=== PATIENT | male | born 1950 | race Caucasian/White ===

== ENCOUNTER → 2017-10-06 | Outpatient (CLI) | payer MEDICARE, MEDICAID | LOC: M RAD 08:15 | DX: I71.4 Abdominal aortic aneurysm, without rupture (principal) | CPT/HCPCS: 76775 ==

== ENCOUNTER → 2018-09-11 | Outpatient (REF) | payer MEDICARE, MEDICAID ==
[~2018-09-11] MED LIST: ASPI1TAB PO; AUGM500T34 PO; FISH1200 PO; GARLPOW; MULTCAP PO; RANI15TA PO
[2018-09-11 11:09] LABS: BLOOD UREA NITROGEN 22 MG/DL (7-18); CALCIUM LEVEL 8.6 MG/DL (8.8-10.2); CARBON DIOXIDE LEVEL 32 MEQ/L (21-32); CHLORIDE LEVEL 99 MEQ/L (98-107); CREATININE FOR GFR 1.05 MG/DL (0.70-1.30); GLOMERULAR FILTRATION RATE > 60.0 (>42); GLUCOSE, FASTING 134 MG/DL (70-100); POTASSIUM SERUM 3.9 MEQ/L (3.5-5.1); SODIUM LEVEL 138 MEQ/L (136-145)
== END ==
LOC: M LABDRAW1 10:26
PROVIDERS: ATTEND Nurse Practitioner Adult Health
DX: Z79.899 Other long term (current) drug therapy (principal); R60.9 Edema, unspecified

== ENCOUNTER → 2018-12-28 | Outpatient (REF) | payer MEDICARE, MEDICAID ==
[~2018-12-28] MED LIST changes: -ASPI1TAB PO; +ASPI81TA26 PO
[2018-12-28 12:46] LABS: BASO # 0.1 10^3/uL (0.0-0.2); BASO % 0.4 % (0.0-1.0); EOS # 0.2 10^3/uL (0.0-0.50); EOS % 0.9 % (0.0-3.0); HEMATOCRIT 46.6 % (42.0-52.0); HEMOGLOBIN 15.3 g/dl (13.5-17.5); LYMPH # 1.5 10^3/uL (1.5-4.5); LYMPH % 9.6 % (24.0-44.0); MEAN CORPUSCULAR HEMOGLOBIN 30.8 pg (27.0-33.0); MEAN CORPUSCULAR HGB CONC 32.8 g/dl (32.0-36.5); MONO # 0.7 10^3/uL (0.0-0.8); MONO % 4.6 % (0.0-5.0); NEUTROPHILS # 13.4 10^3/uL (1.8-7.7); NEUTROPHILS % 83.8 % (36.0-66.0); PLATELET COUNT, AUTOMATED 269 10^3/uL (150-450); RED BLOOD COUNT 4.96 10^6/uL (4.30-6.10)
[2018-12-28 13:01] LABS: ALBUMIN 3.8 GM/DL (3.2-5.2); ALT/SGPT 41 U/L (12-78); BILIRUBIN,TOTAL 1.2 MG/DL (0.2-1.0); BLOOD UREA NITROGEN 15 MG/DL (7-18); CALCIUM LEVEL 8.7 MG/DL (8.8-10.2); CARBON DIOXIDE LEVEL 26 MEQ/L (21-32); CHLORIDE LEVEL 103 MEQ/L (98-107); CHOLESTEROL LEVEL 163 MG/DL (<200); CHOLESTEROL RISK RATIO 2.432 (<5); CREATININE FOR GFR 1.26 MG/DL (0.70-1.30); GLOMERULAR FILTRATION RATE > 60.0 (>42); GLUCOSE, FASTING 152 MG/DL (70-100); HDL CHOLESTEROL 67 MG/DL (>40); LDL CHOLESTEROL 73 MG/DL (<100); NON-HDL-C 96 MG/DL; POTASSIUM SERUM 4.2 MEQ/L (3.5-5.1); SODIUM LEVEL 139 MEQ/L (136-145); TOTAL PROTEIN 7.6 GM/DL (6.4-8.2); TRIGLYCERIDES LEVEL 117 MG/DL (<150)
[2018-12-28 13:22] LABS: HEMOGLOBIN A1c 6.5 %
[2018-12-28 14:01] LABS: TOTAL 25(OH) VITAMIN D 29.4 NG/ML (30.0-100.0)
== END ==
LOC: M LABDRAW1 11:59
PROVIDERS: ATTEND Nurse Practitioner Adult Health
DX: Z95.5 Presence of coronary angioplasty implant and graft (principal); I25.10 Atherosclerotic heart disease of native coronary artery without angina pectoris; R60.9 Edema, unspecified; E78.00 Pure hypercholesterolemia, unspecified; Z79.899 Other long term (current) drug therapy; E11.65 Type 2 diabetes mellitus with hyperglycemia

== ENCOUNTER → 2019-04-08 | Outpatient (REF) | payer MEDICARE, MEDICAID ==
[2019-04-08 13:13] LABS: BASO # 0.1 10^3/uL (0.0-0.2); BASO % 0.4 % (0.0-1.0); EOS # 0.3 10^3/uL (0.0-0.5); EOS % 1.7 % (0.0-3.0); HEMATOCRIT 47.8 % (42.0-52.0); HEMOGLOBIN 15.5 g/dl (13.5-17.5); LYMPH # 1.4 10^3/uL (1.5-5.0); LYMPH % 9.4 % (24.0-44.0); MEAN CORPUSCULAR HEMOGLOBIN 30.9 pg (27.0-33.0); MEAN CORPUSCULAR HGB CONC 32.4 g/dl (32.0-36.5); MEAN CORPUSCULAR VOLUME 95.2 fl (80.0-96.0); MONO # 0.8 10^3/uL (0.0-0.8); MONO % 5.3 % (0.0-5.0); NEUTROPHILS # 12.1 10^3/uL (1.5-8.5); NEUTROPHILS % 82.7 % (36.0-66.0); PLATELET COUNT, AUTOMATED 265 10^3/uL (150-450); RED BLOOD COUNT 5.02 10^6/uL (4.30-6.10); WHITE BLOOD COUNT 14.6 10^3/uL (4.0-10.0)
[2019-04-08 13:25] LABS: ALBUMIN 3.7 GM/DL (3.2-5.2); ALT/SGPT 40 U/L (12-78); BILIRUBIN,TOTAL 1.3 MG/DL (0.2-1.0); BLOOD UREA NITROGEN 18 MG/DL (7-18); CALCIUM LEVEL 8.8 MG/DL (8.8-10.2); CARBON DIOXIDE LEVEL 29 MEQ/L (21-32); CHLORIDE LEVEL 100 MEQ/L (98-107); CHOLESTEROL LEVEL 141 MG/DL (<200); CHOLESTEROL RISK RATIO 1.905 (<5); CREATININE FOR GFR 1.25 MG/DL (0.70-1.30); GLOMERULAR FILTRATION RATE > 60.0 (>42); GLUCOSE, FASTING 178 MG/DL (70-100); HDL CHOLESTEROL 74 MG/DL (>40); LDL CHOLESTEROL 46 MG/DL (<100); NON-HDL-C 67 MG/DL; POTASSIUM SERUM 4.3 MEQ/L (3.5-5.1); SODIUM LEVEL 139 MEQ/L (136-145); TOTAL PROTEIN 6.7 GM/DL (6.4-8.2); TRIGLYCERIDES LEVEL 103 MG/DL (<150)
[2019-04-08 14:28] LABS: TOTAL 25(OH) VITAMIN D 29.2 NG/ML (30.0-100.0)
[2019-04-08 15:11] LABS: HEMOGLOBIN A1c 6.6 %
== END ==
LOC: M LABDRAW1 11:46
PROVIDERS: ATTEND Nurse Practitioner Adult Health
DX: E11.65 Type 2 diabetes mellitus with hyperglycemia (principal); Z79.899 Other long term (current) drug therapy; J44.9 Chronic obstructive pulmonary disease, unspecified

== ENCOUNTER → 2019-05-09 | Outpatient (REF) | payer MEDICARE, MEDICAID ==
[2019-05-09 12:54] LABS: ALBUMIN 3.8 GM/DL (3.2-5.2); CALCIUM LEVEL 9.7 MG/DL (8.8-10.2); CREATININE FOR GFR 1.56 MG/DL (0.70-1.30); GLOMERULAR FILTRATION RATE 46.9 (>42); PHOSPHORUS LEVEL 3.4 MG/DL (2.5-4.9); POTASSIUM SERUM 4.5 MEQ/L (3.5-5.1)
== END ==
LOC: M LABDRAW1 12:10
PROVIDERS: ATTEND Physician Assistant
DX: R06.02 Shortness of breath (principal)

== ENCOUNTER → 2019-05-27 | Outpatient (REF) | payer MEDICARE, MEDICAID ==
[2019-05-27 12:40] LABS: CALCIUM LEVEL 9.1 MG/DL (8.8-10.2); CREATININE FOR GFR 1.31 MG/DL (0.70-1.30); GLOMERULAR FILTRATION RATE 57.4 (>42); POTASSIUM SERUM 3.9 MEQ/L (3.5-5.1)
== END ==
LOC: M LABDRAW1 11:58
PROVIDERS: ATTEND Physician Assistant
DX: I25.10 Atherosclerotic heart disease of native coronary artery without angina pectoris (principal)

== ENCOUNTER 2019-10-02 01:31 | Inpatient (IN) | payer MEDICARE, MEDICAID ==
[~2019-10-02] VITALS: Ht 170.2 cm; Wt 115.8 kg
[2019-10-02] MEDS ORDERED: JANU50TA8 (01:46)
[2019-10-02] MEDS ORDERED: CLOP75TA2 (01:46)
[2019-10-02] MEDS ORDERED: ATOR40TA75 (01:46)
[2019-10-02] MEDS ORDERED: FLUTISP (01:46)
[2019-10-02] MEDS ORDERED: LISI-542 (01:46)
[2019-10-02] MEDS ORDERED: PROAAER10 (01:46)
[2019-10-02] MEDS ORDERED: MONT10TA4 (01:46)
[2019-10-02] MEDS ORDERED: PRED20TA (01:46)
[2019-10-02] MEDS ORDERED: RANI150T14 (01:46)
[2019-10-02] MEDS ORDERED: INCR1INH (01:46)
[2019-10-02] MEDS ORDERED: BENZ-18 (01:46)
[2019-10-02] MEDS ORDERED: FURO40TA2 (01:46)
[2019-10-02] MEDS ORDERED: SULF400T14 (01:46)
[2019-10-02 02:16] LABS: BASO # 0.1 10^3/uL (0.0-0.2); BASO % 0.5 % (0.0-1.0); EOS # 0.3 10^3/uL (0.0-0.5); EOS % 1.6 % (0.0-3.0); HEMATOCRIT 46.8 % (42.0-52.0); HEMOGLOBIN 15.2 g/dl (13.5-17.5); LYMPH % 22.6 % (24.0-44.0); MEAN CORPUSCULAR HGB CONC 32.5 g/dl (32.0-36.5); MEAN CORPUSCULAR VOLUME 89.1 fl (80.0-96.0); MONO # 1.7 10^3/uL (0.0-0.8); MONO % 9.7 % (0.0-5.0); NEUTROPHILS # 11.6 10^3/uL (1.5-8.5); NEUTROPHILS % 65.1 % (36.0-66.0); PLATELET COUNT, AUTOMATED 236 10^3/uL (150-450); RED BLOOD COUNT 5.25 10^6/uL (4.30-6.10); WHITE BLOOD COUNT 17.8 10^3/uL (4.0-10.0)
[2019-10-02 02:36] LABS: CALCIUM LEVEL 9.1 MG/DL (8.8-10.2); CREATININE FOR GFR 1.89 MG/DL (0.70-1.30); GLOMERULAR FILTRATION RATE 37.6 (>42); POTASSIUM SERUM 3.9 MEQ/L (3.5-5.1)
[2019-10-02] MEDS ORDERED: FUROSEMIDE 100 MG/10 ML VIAL (J1940) IV ONE (03:00)
[2019-10-02] MEDS ORDERED: dexameTHASONE 20 MG/5 ML VIAL (J1100) IV ONE (03:00)
[2019-10-02] MEDS: IPRATROPIUM 0.5MG/ALBUTEROL 2.5MG INH SOL UD 3ML (DUONEB)(J7620) NEB SCH ×6 (03:00→20:04)
[2019-10-02 04:35] LABS: VENOUS HCO3 22.8 MEQ/L (23.0-27.0); VENOUS O2 SATURATION 94.8 % (60.0-80.0); VENOUS PARTIAL PRESSURE CO2 35.6 mmHg (38.0-50.0); VENOUS PARTIAL PRESSURE O2 76.4 mmHg (30.0-50.0); VENOUS PH 7.425 UNITS (7.330-7.430); VENOUS STANDARD HCO3 23.6 MEQ/L; VENOUS TOTAL CO2 23.9 MEQ/L (24.0-28.0)
[2019-10-02 05:11] LABS: INFLUENZA A AMPLIFICATION NEGATIVE (NEGATIVE); INFLUENZA B AMPLIFICATION NEGATIVE (NEGATIVE)
[2019-10-02] MEDS ORDERED: ALBUTEROL SULFATE 2.5 MG/0.5 ML INH NEB SOLN NEB PRN (05:45)
[2019-10-02] MEDS ORDERED: ACETAMINOPHEN TAB 650MG DOSE (2X325MG) PO PRN (05:45)
[2019-10-02 06:44] VITALS: BP 105/76
[2019-10-02] MEDS ORDERED: PROAAER10 INH (06:45)
[2019-10-02] MEDS ORDERED: LISI-542 PO (06:45)
[2019-10-02] MEDS ORDERED: FURO40TA2 PO (06:45)
[2019-10-02] MEDS ORDERED: CLOP75TA2 PO (06:45)
[2019-10-02] MEDS ORDERED: MONT10TA4 PO (06:45)
[2019-10-02] MEDS ORDERED: VITAD1000T PO (06:45)
[2019-10-02] MEDS ORDERED: FLON1SPR (06:45)
[2019-10-02] MEDS ORDERED: ATOR40TA75 PO (06:45)
[2019-10-02] MEDS ORDERED: BENZ-18 PO (06:45)
[2019-10-02] MEDS ORDERED: RANI-397 PO (06:45)
[2019-10-02] MEDS ORDERED: INCR1INH INH (06:45)
[2019-10-02] MEDS ORDERED: BACT800T5 PO (06:45)
[2019-10-02] MEDS ORDERED: JANU50TA8 PO (06:45)
[2019-10-02] MEDS ORDERED: PRED20TA PO (06:45)
--- NOTE | 2019-10-02 06:48 | HPEPDOC ---
[facility] Medical History & Physical Date of Admission Oct 02, 2019 Date of Service: Oct 02, 2019 Attending Physician: MONICA GORDON MD History and Physical CHIEF COMPLAINT: Shortness of breath HISTORY OF PRESENT ILLNESS: Patient is a 69-year-old male who presents with a long-standing history of shortness of breath. Patient says that over the past 4 months he has noticed worsening of shortness of breath. Patient states that he is really go out and do most of things to do as long as he took it easy however, he now is unable to walk more than 10-15 feet without becoming acutely short of breath and having to stop and rest for some time. Patient states that his long history of difficulty breathing sees Dr. Person for his pulmonology care. Patient states that he thinks he has a lung disease today with birds. 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 Patient says used to have carrier pigeons but gave this up about 8 months ago. Patient also is complaining of acute fluid retention in his legs causing leg swelling which is the reason why he came into the emergency room today. Patient does not have any other complaints at this time. REVIEW OF SYSTEMS: General: Patient denies fevers, chills, night sweats, unintentional weight loss HEENT: Patient denies headaches, changes in vision, sore throat. Cardiovascular: Patient denies chest pain, chest pressure, or palpitations Respiratory: Patient endorses worsening shortness of breath as described above in HPI GI: Patient denies abdominal pain, nausea, vomiting, diarrhea : Patient denies pain or difficulty with urination Neurological: Patient denies numbness or tingling in extremities Extremities: Patient endorses worsening swelling in his lower extremities as described above in HPI Skin: Patient denies any rashes or lesions. Hematologic: Patient denies any easy bruising. Lymphatic: Patient denies any lumps in his neck, axilla, or groin. PAST MEDICAL HISTORY: 1. Coronary artery disease. 2. Possible COPD 3. 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 PAST SURGICAL HISTORY: 1. Multiple procedures to place coronary stents with the last one being about 4- 5 months ago.. SOCIAL HISTORY: Patient says used to smoke cigarettes on a daily basis but quit 15 years ago. Patient does not drink any alcohol last year and denies illicit drug use. Patient lives by himself and used to have carrier pigeons but gave this up about 8 months ago. FAMILY HISTORY: Patient says his brother has COPD and his mother had heart issues. ALLERGIES: Please see below. HOME MEDICATIONS: Please see below. PHYSICAL EXAMINATION: VITAL SIGNS: Temperature 98.2, pulse 105, respiratory rate 17, blood pressure 144/87, pulse oximetry 89% 3 L via nasal cannula General: Alert and oriented male patient who was laying on the stretcher when I walked in. Patient was able to speak in about 3-4 sentences before having to take a breath. Patient was using accessory muscles and was exhibiting pursed lip breathing. Patient appeared to be in [id number] distress especially after coughing. HEENT: Normocephalic, atraumatic, moist mucous membranes, posterior pharynx was nonerythematous, tympanic membranes are pearly-rose without erythema. Neck: No lymphadenopathy, thyromegaly, or carotid bruits. Cardiac: Regular rate and rhythm, no murmurs, normal S1, normal S2 Pulm: Coarse crackles throughout the lung martinez especially at the bases. Abd: Nondistended, nontender to palpation, normal bowel sounds Ext: 3+ pitting edema bilateral lower extremities. Neuro: No gross neurological defects. Patient was able to follow commands set up on command. Skin: Skin of the arms, lower legs, abdomen, back, head and neck were examined did not show any evidence of rash or lesions. LABORATORY DATA: Anion Gap 13, Glomerular Filtration Rate 37.6L, Calcium Level 9.1, UZ-Bzs-R-Type Natriuretic Peptide 6239H Blood Gas Bicarbonate Standard 23.6, Venous Blood pH 7.425, Venous Blood Partial Pressure CO2 35.6L, Venous Blood Partial Pressure O2 76.4H, Venous Blood Total Carbon Dioxide 23.9L, Venous Blood HCO3 22.8L, Venous Blood Oxygen Saturation 94.8H, Venous Blood Base Excess -1.0, Influenza Type A (RT-PCR) NEGATIVE, Influenza Type B (RT-PCR) NEGATIVE POC pH (Misc Panel) 7.432, POC Base Excess (Misc Panel) -1.0, POC Saturated Percent O2 (Misc) 95, POC pO2 (Misc Panel) 71.0L, POC pCO2 (Misc Panel) 35.5, POC HCO3 (Misc Panel) 23.6, POC Total CO2 (Misc Panel) 25.0 IMAGING: Patient had a chest x-ray performed and a official radiology read is pending however, it does show coarse thickening throughout the lung martinez with no focal consolidation. When compared to a previous study performed in 2015, it appears unchanged MICROBIOLOGY: 10/02/19 Blood Culture, Received Pending ASSESSMENT: Patient is a 69-year-old male who presents to the emergency department with worsening shortness of breath was a history of chronic lung disease. PLAN: 1. Acute on chronic hypoxic respiratory failure. Patient is currently on 3 L of nasal cannula oxygen. Patient is on this at home for possible COPD. Patient follows up with Dr. Person for his pulmonology care. Patient sounds like he may have bird fancier's lung according to what he is saying. Record showed be obtained from Dr. Person's office in order to verify this. Patient will be placed on Solu-Medrol 60 mg IV every 8 hours and will have nebulizers written for the patient. 2. Acute on chronic congestive heart failure. Patient has recently had a st enting procedure. Patient says he's had 4 stents placed in his lifetime. Patient gets his care through [facility]. Patient recently had an echocardiogram done there as well so this will not be repeated. We will try to obtain his records from there. Patient will be given IV Lasix and will be placed on a fluid restriction with strict I's and O's. 3. Acute kidney injury. Patient's creatinine is elevated above baseline. Renal ultrasound, urinalysis, and urine creatinine and urea have been ordered to complete the workup. 4. Coronary artery disease. Patient will be continued on his home medications. 5. Obesity with BMI of 40 complicates care 6. DVT prophylaxis. Lovenox. 7. CODE STATUS: DO NOT RESUSCITATE/DO NOT INTUBATE. MOLST form was filled out and signed in the emergency department. Home Medications Scheduled Aspirin (Aspirin EC) 81 Mg Tab, 81 MG PO DAILY Atorvastatin Calcium (Atorvastatin Calcium) 40 Mg Tablet, 40 MG PO QPM 1800 Cholecalciferol (Vitamin D3) (Vitamin D3) 1,000 Unit Tablet, 1,000 UNITS PO DAILY Clopidogrel Bisulfate (Clopidogrel) 75 Mg Tablet, 75 MG PO QPM 1800 Fluticasone Propionate (Flonase Allergy Relief) 9.9 Ml Valier.susp, 2 SPRAYS NA DAILY Furosemide (Furosemide) 40 Mg Tablet, 40 MG PO BID Lisinopril (Lisinopril) 5 Mg Tablet, 5 MG PO DAILY Montelukast Sodium (Montelukast Sodium) 10 Mg Tablet, 10 MG PO DAILY Prednisone (Prednisone) 20 Mg Tablet, 20 MG PO DAILY Ranitidine HCl (Ranitidine HCl) 150 Mg Tablet, 1 TAB PO BID Sitagliptin Phos/Metformin HCl (Janumet 50-1,000 mg Tablet) 1 Each Tablet, 1 TAB PO BID Sulfamethoxazole/Trimethoprim (Bactrim Ds Tablet) 1 Each Tablet, 1 TAB PO 3XW MONDAY, MONDAY AND MONDAY Umeclidinium [place] (Incruse Ellipta) 62.5 Mcg Blst.w.dev, 1 PUFF INH DAILY Scheduled PRN Albuterol Sulfate (Proair Hfa) 8.5 Gm Hfa.aer.ad, 2 PUFF INH Q4H PRN for SHORTNESS OF BREATH Benzonatate (Benzonatate) 100 Mg Capsule, 100 MG PO TID PRN for COUGH Allergies Coded Allergies: benazepril (Verified Allergy, Unknown, 10/02/19) shellfish derived (Verified Allergy, Unknown, 10/02/19) A-FIB/CHADSVASC A-FIB History Current/History of A-Fib/PAF?: No GME ATTESTATION GME ATTESTATION My faculty preceptor for this patient encounter was physically present during the encounter and was fully available. All aspects of the patient interview, examination, medical decision making process, and medical care plan development were reviewed and approved by the faculty preceptor. The faculty preceptor is aware and concurs with the plan as stated in the body of this note and will attest to such by his/her cosignature. ATTENDING NOTE Time of service 6:15 AM I reviewed and edited the note and agree with the findings as documented by JEANNINE Garcia DO Oct 02, 2019 06:48 MONICA GORDON MD Oct 02, 2019 07:27
[2019-10-02] MEDS ORDERED: GLUCAGON FOR INJ 1 MG VIAL (J1610) SC PRN (07:00)
[2019-10-02] MEDS ORDERED: DEXTROSE 50% 50 ML SYRINGE IV PRN (07:00)
[2019-10-02] MEDS ORDERED: GLUCOSE 4 GM CHEW TABLET PO PRN (07:00)
--- NOTE | 2019-10-02 07:27 | REPVR ---
PROCEDURE INFORMATION: Exam: US Retroperitoneal Limited, Kidneys Exam date and time: 10/02/2019 6:37 AM Age: 69 years old Clinical indication: Abnormal findings; Abnormal lab test; Abnormal kidney function lab tests; Additional info: Elías TECHNIQUE: Imaging protocol: Real-time ultrasound of the retroperitoneum with image documentation. Examination was focused on the kidneys. COMPARISON: GALLBLADDER US 04/09/2015 5:14 PM FINDINGS: Right kidney: Right renal cortical atrophy. No hydronephrosis. Left kidney: Simple 1.5 x 1.8 cm left parapelvic renal cyst. Mild left renal cortical atrophy. No hydronephrosis. Wall Bladder: Under distended urinary bladder. IMPRESSION: Bilateral renal cortical atrophy. No hydronephrosis. COMMENTS: Consistent with the [employer]'s Incidental Findings Committee white paper (J Am Candelario Radiol 2018): Any incidental cystic renal lesion classified in this report as too small to characterize or simple appearing is likely a benign cyst. No follow-up imaging is recommended for these lesions per consensus recommendations based on imaging criteria. Electronically signed by: Javon Correa On 10/02/2019 07:27:43 AM
[2019-10-02] MEDS ORDERED: FAMOTIDINE 20 MG TAB PO SCH (09:00)
--- NOTE | 2019-10-02 09:26 | REP ---
Portable chest x-ray: Single view. History: Dyspnea and cough. Comparison chest x-ray: June 24, 2015. Findings: There is fairly advanced diffuse interstitial fibrosis pattern consistent with COPD. Some coarse fibrosis is seen in the right upper lobe region. These findings are unchanged. No superimposed infiltrate is appreciated. The heart is mildly enlarged unchanged. Impression: Chronic and fairly advanced interstitial pulmonary fibrosis. Cardiomegaly. Electronically Signed by Naeem Benson MD 10/02/2019 09:18 A
[2019-10-02 09:54] LABS: APPEARANCE, URINE CLEAR (CLEAR); BACTERIA, URINE AUTO NEGATIVE (NEGATIVE); BILIRUBIN, URINE AUTO NEGATIVE (NEGATIVE); BLOOD, URINE BLOOD NEGATIVE (NEGATIVE); COLOR, URINE STRAW (YELLOW); GLUCOSE, URINE (UA) AUTO NEGATIVE (NEGATIVE); KETONE, URINE AUTO NEGATIVE (NEGATIVE); LEUKOCYTE ESTERASE, URINE AUTO NEGATIVE (NEGATIVE); MUCUS, URINE SMALL (NEGATIVE); NITRITE, URINE AUTO NEGATIVE (NEGATIVE); PROTEIN, URINE AUTO NEGATIVE (NEGATIVE); RBC, URINE AUTO 0 /HPF (0-3); SPECIFIC GRAVITY URINE AUTO 1.008 (1.002-1.035); SQUAMOUS EPITHELIAL CELL UR AU 0 /HPF (0-6); UROBILINOGEN, URINE AUTO 0.2 mg/dL (0.0-2.0); WBC, URINE AUTO 0 /HPF (0-3)
[2019-10-02] MEDS: methylPREDNISolone INJ 125 MG/2 ML VIAL (J2930) IV SCH ×2 (10:05→17:44)
[2019-10-02] MEDS: FLUTICASONE PROP 0.05% NASAL SPRAY 16 GM (FLONASE) SCH (10:05)
[2019-10-02] MEDS: BACTRIM 160MG/800MG DS TAB PO SCH (10:06)
[2019-10-02] MEDS: ENOXAPARIN 30 MG/0.3 ML SYR (J1650) SC SCH (10:06)
[2019-10-02] MEDS: PANTOPRAZOLE 40MG TAB (PROTONIX) PO SCH (10:06)
[2019-10-02] MEDS: BENZONATATE 100 MG CAP PO PRN ×2 (10:06→17:46)
[2019-10-02] MEDS: ASPIRIN 81 MG ENTERIC TAB PO SCH (10:06)
[2019-10-02] MEDS: FAMOTIDINE 20 MG TAB PO SCH (10:06)
[2019-10-02] MEDS: MONTELUKAST 10 MG TAB PO SCH (10:06)
[2019-10-02] MEDS: VITAMIN D 1,000 INTERNATIONAL UNITS TABLET PO SCH (10:06)
[2019-10-02] MEDS: lisinopriL 5 MG TAB PO SCH (10:07)
[2019-10-02 10:20] LABS: CREATININE,RANDOM URINE 35.6 MG/DL; UREA NITROGEN RANDOM URINE 398 MG/DL
[2019-10-02] MEDS: FUROSEMIDE 100 MG/10 ML VIAL (J1940) IV SCH ×2 (12:58→20:00)
[2019-10-02] MEDS: HumaLOG INSULIN (NovoLOG) PER UNIT SC SCH ×3 (12:59→21:00)
[2019-10-02 14:00] VITALS: BP 100/68
[2019-10-02] MEDS ORDERED: FUROSEMIDE 20 MG/2 ML VIAL (J1940) IV ONE (21:15)
[2019-10-02] MEDS: ATORVASTATIN 20 MG TAB PO SCH (21:34)
[2019-10-02] MEDS: CLOPIDOGREL 75 MG TAB PO SCH (21:35)
[2019-10-02 22:00] VITALS: BP 102/66
[2019-10-02] MEDS: RAMELTEON 8 MG TAB (ROZEREM) PO SCH (22:16)
[2019-10-03] VITALS (7 sets, daily range): BP systolic 104–128; BP diastolic 63–86; O2SAT 90
[2019-10-03] MEDS: methylPREDNISolone INJ 125 MG/2 ML VIAL (J2930) IV SCH ×3 (01:34→18:28)
[2019-10-03] MEDS: IPRATROPIUM 0.5MG/ALBUTEROL 2.5MG INH SOL UD 3ML (DUONEB)(J7620) NEB SCH ×4 (03:11→21:59)
[2019-10-03] MEDS: FUROSEMIDE 100 MG/10 ML VIAL (J1940) IV SCH ×3 (04:00→22:14)
[2019-10-03] MEDS ORDERED: FUROSEMIDE 40 MG/4 ML VIAL (J1940) IV ONE ×2 (04:45→10:00)
[2019-10-03] MEDS: BENZONATATE 100 MG CAP PO PRN (05:06)
[2019-10-03 06:14] LABS: HEMATOCRIT 41.7 % (42.0-52.0); HEMOGLOBIN 13.7 g/dl (13.5-17.5); MEAN CORPUSCULAR HEMOGLOBIN 28.7 pg (27.0-33.0); MEAN CORPUSCULAR HGB CONC 32.9 g/dl (32.0-36.5); MEAN CORPUSCULAR VOLUME 87.4 fl (80.0-96.0); PLATELET COUNT, AUTOMATED 217 10^3/uL (150-450); RED BLOOD COUNT 4.77 10^6/uL (4.30-6.10); WHITE BLOOD COUNT 14.3 10^3/uL (4.0-10.0)
--- NOTE | 2019-10-03 06:50 | ECGEPIP ---
[facility] - ED Test Date: 2019-10-02 Pat Name: IVAN BARTLETT Department: Room: [place] [address] Gender: Male Hospital Supervisor: ELVIRA : [id number] Requested By: ALDEN GLEZ Order Number: [id number] Reading MD: Keyana Guillen Measurements Intervals [place] Rate: 96 P: 41 IN: 168 QRS: 131 QRSD: 121 T: -35 QT: 316 QTc: 400 Interpretive Statements SINUS RHYTHM INDETERMINATE AXIS RIGHT BUNDLE BRANCH BLOCK INCREASED RATE 04/09/15 Electronically Signed on 10-03-2019 6:49:54 EST by Keyana Guillen
[2019-10-03 06:51] LABS: CALCIUM LEVEL 8.5 MG/DL (8.8-10.2); CREATININE FOR GFR 1.75 MG/DL (0.70-1.30); GLOMERULAR FILTRATION RATE 41.1 (>42); MAGNESIUM LEVEL 2.3 MG/DL (1.8-2.4); POTASSIUM SERUM 3.7 MEQ/L (3.5-5.1)
[2019-10-03] MEDS: lisinopriL 5 MG TAB PO SCH (08:05)
[2019-10-03] MEDS: HumaLOG INSULIN (NovoLOG) PER UNIT SC SCH ×4 (09:09→22:15)
[2019-10-03] MEDS: MONTELUKAST 10 MG TAB PO SCH (09:09)
[2019-10-03] MEDS: PANTOPRAZOLE 40MG TAB (PROTONIX) PO SCH (09:09)
[2019-10-03] MEDS: VITAMIN D 1,000 INTERNATIONAL UNITS TABLET PO SCH (09:09)
[2019-10-03] MEDS: ASPIRIN 81 MG ENTERIC TAB PO SCH (09:09)
[2019-10-03] MEDS: FAMOTIDINE 20 MG TAB PO SCH (09:09)
[2019-10-03] MEDS: ENOXAPARIN 30 MG/0.3 ML SYR (J1650) SC SCH (09:10)
[2019-10-03] MEDS: FLUTICASONE PROP 0.05% NASAL SPRAY 16 GM (FLONASE) SCH (09:10)
--- NOTE | 2019-10-03 10:12 | REP ---
CT chest without contrast: History: Shortness of breath. No comparison chest CT. Comparison is made with yesterday's chest x-ray. Findings: There are advanced emphysematous changes with areas of honeycombing extensively in the upper lobes bilaterally and to a lesser extent in the lower lobes bilaterally. There are fairly large bullae in the right apex. No superimposed infiltrate is appreciated. There is no evidence of pleural or pericardial effusion. Coronary artery vascular calcification is noted. Mild cardiomegaly is observed. No adrenal lesion is seen. The visualized upper abdominal structures are remarkable only for some granulomatous calcifications in the spleen and a tiny accessory splenule. No bony abnormality is appreciated. Impression: Advanced COPD with extensive areas of fibrosis and honeycombing. Cardiomegaly. Vascular calcification. No acute infiltrate seen. Electronically Signed by Naeem Benson MD 10/03/2019 08:01 P
[2019-10-03] MEDS: cefTRIAXone SOD 2 GM in D5W MINI-BAG PLUS 50 ML IV SCH (10:22)
[2019-10-03] MEDS: AZITHROMYCIN INJ 500 MG, VIAL MATE ADAPTER 1 EACH in D5W 250 ML IV SCH (11:03)
[2019-10-03 11:21] LABS: ABG BASE EXCESS -2.4 (-2.0-2.0); ABG HCO3 20.7 MEQ/L (22.0-26.0); ABG O2 SATURATION 95.2 % (95.0-99.0); ABG PARTIAL PRESSURE O2 77.3 mmHg (75.0-100.0); ABG STANDARD HCO3 22.4 MEQ/L (22.0-26.0); ABG TOTAL CO2 21.6 MEQ/L (23.0-31.0); ABG pH (ARTERIAL) 7.442 UNITS (7.350-7.450)
[2019-10-03] MEDS: INCRUSE ELLIPTA 62.5 MCG INH SCH (11:42)
--- NOTE | 2019-10-03 21:09 | CR ---
DATE OF CONSULTATION: 10/03/2019 REQUESTING PHYSICIAN: Gabi Renee MD CONSULTING PHYSICIAN: Chon Sy MD REASON FOR CONSULTATION: Management of volume status in this patient with chronic kidney disease and hypoxic respiratory failure. CHIEF COMPLAINT: The patient presented to the emergency room yesterday with progressive shortness of breath. HISTORY OF PRESENT ILLNESS: 69-year-old male with past medical history of chronic kidney disease stage III, best baseline creatinine of 1.2 as per March 2019, severe pulmonary fibrosis dependent on home oxygen, history of cor pulmonale. He presented to the emergency room yesterday with progressive shortness of breath. The patient reported that he gets short of breath on minimal exertion, walking a few steps makes him short of breath. His regular oxygen requirement is around 3 liters per minute but they had to increase the oxygen to 5-6 liters per minute and even with that he was desaturating in the 80s. The patient also complained of leg swelling in bilateral lower extremities. He was admitted under the hospitalist service last night. He was started on steroids, nebulizations, and IV diuretics. That did not make much difference in his shortness of breath. His creatinine on arrival was 1.8 which is higher than his baseline. Nephrology service was called for further help in the management of this patient for adjustment of his volume status and diuretics and the setting of chronic kidney disease stage III. I saw and evaluated the patient today afternoon at the bedside. His son was also present at the bedside. The patient was wearing the nasal cannula and he was in moderate respiratory distress. 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 PAST SURGICAL HISTORY: Status post coronary artery stents. ALLERGIES: The patient is allergic to BENAZEPRIL and shellfish. FAMILY HISTORY: No significant family history of end-stage renal disease requiring hemodialysis. He does report COPD in his brother. SOCIAL HISTORY: The patient lives at home. He is an ex-smoker. He quit 15 years ago. He denies any drug abuse or alcohol abuse. He used to have pigeons at home but he gave them up about 8 months ago. REVIEW OF SYSTEMS: Constitutional: Patient denies any fevers and chills. Eyes: He denies any blurry vision or double vision. ENT: Denies any dysphagia or odynophagia. Cardiovascular: He reports congestive heart failure and lower extremity edema. Respiratory: He reports progressive shortness of breath and cough and oxygen dependent. GI: Denies any nausea or vomiting. Genitourinary: He denies any dysuria or hematuria. Musculoskeletal: He reports lower extremity edema. Skin: He denies any rashes or ulcers. Psychiatric: He denies any depression or anxiety. Hematology/Oncology: He denies any easy bleeding or bruising. SENIOR INTEGRATION DEVELOPER: He denies any strokes or seizures. Endocrine: He denies any hyperthyroidism or hypothyroidism. All other review of systems is negative. PHYSICAL EXAMINATION: General: The patient is awake, alert, oriented times three, obese, sitting up in the bed wearing nasal cannula. Mild respiratory distress. Vital signs: Temperature is 97.2 degrees Fahrenheit, blood pressure 123/86, pulse 89, respiratory rate of 23, saturating 94% on high-flow nasal cannula at 4 liters. Head and neck exam: Extraocular muscles intact. Pupils equally round and reactive to light. Mucous membranes are moist. Neck is supple. There is no significant elevation of the JVD. Cardiovascular: S1, S2, regular rate, 1+ edema of the bilateral ankles. Respiratory: Decreased breath sounds at the bases with mild expiratory rhonchi. Abdomen: Soft, obese, positive bowel sounds. Nontender. No organomegaly. Musculoskeletal: He has cyanosis of the extremity with clubbing of the fingers. SENIOR INTEGRATION DEVELOPER: No focal deficit, power is 5/5 in all extremities. Skin: No rashes or ulcers. LABORATORY REVIEW: CBC showed WBC 14.3, hemoglobin is 13.7, platelets are 217. BMP showed sodium 132, potassium 3.7, chloride 99, bicarbonate 26, BUN 43, creatinine is 1.7, magnesium 2.3. BNP on arrival was 6239 yesterday. Microbiology: Respiratory viral panel is negative. Blood cultures are negative so far. IMAGING: CT of the chest was done yesterday which showed advanced COPD with extensive areas of fibrosis and honeycombing, cardiomegaly, vascular calcifications, no acute infiltrate was seen. Renal ultrasound was done which showed bilateral renal cortical atrophy, no hydronephrosis was seen. CURRENT INPATIENT MEDICATIONS: The patient's medications include: - azithromycin 500 mg IV daily - Rocephin 2 grams IV daily - Tylenol as needed - albuterol nebulizations - DuoNeb nebulizations - aspirin 81 mg daily - Lipitor 40 mg nightly - Tessalon Perles - Plavix 75 mg by mouth daily - Lovenox 30 mg subcutaneous daily - famotidine 20 mg by mouth daily - Lasix 60 mg IV every 8 hours - insulin sliding scale - lisinopril 5 mg by mouth daily - Solu-Medrol 80 mg IV every eight hours - montelukast 10 mg by mouth daily - Protonix 40 mg daily - Rozerem 8 mg nightly - Bactrim one tablet by mouth Monday, Monday, Monday - vitamin D 1000 units by mouth daily ASSESSMENT: 69-year-old man with advanced COPD on home oxygen admitted at this time with hypoxic respiratory failure secondary to COPD exacerbation. PLAN: 1. Acute on chronic hypoxic respiratory failure secondary to acute COPD exacerbation. The patient continues to be nebulizations, antibiotics and steroids. He has advanced pulmonary fibrosis and at baseline he is dependent on 3 liters of oxygen. Management is as per pulmonary recommendations. However, as per documentation, pulmonary has nothing much to offer because of the advanced fibrosis and honeycomb appearance of the lungs on CT scan. 2. Acute decompensated congestive heart failure. Looking at him clinically, it does not look like the patient has significant volume overload. He just has edema on the lower extremities. However, given his advanced COPD, most likely the patient has decompensated cor pulmonale. Echocardiogram result is not available at this time. Continue the diuretics at this time. Continue to monitor intake and output. 3. Acute kidney injury superimposed on chronic kidney disease stage III. Patient's baseline creatinine is 1.2. However, because of CHF and COPD exacerbation, he is being aggressively diuresed. Continue the diuretics at this time. Renal ultrasound shows cortical scarring. 4. Hyponatremia. The patient has hypervolemic hyponatremia. Okay to continue the diuretics at this time. 5. Coronary artery disease. Continue current dose of aspirin 81 mg daily, Lipitor 40 mg nightly, Plavix 75 mg by mouth daily, along with lisinopril 5 mg by mouth daily. He is not a candidate for beta blockers because of advanced COPD. Thank you for involving me in the care of this patient. I shall be happy to follow the patient along with you tomorrow morning.
[2019-10-03] MEDS: RAMELTEON 8 MG TAB (ROZEREM) PO SCH (22:13)
[2019-10-03] MEDS: CLOPIDOGREL 75 MG TAB PO SCH (22:13)
[2019-10-03] MEDS: ATORVASTATIN 20 MG TAB PO SCH (22:13)
--- NOTE | 2019-10-03 22:38 | ECHO ---
DATE OF PROCEDURE: 10/03/2019 REFERRING PHYSICIAN: Gabi Renee MD INDICATION: Dyspnea, unspecified. HEIGHT: 170 cm WEIGHT: 116 kg 2D MEASUREMENTS: Left atrium: 3.9 cm Ventricular septum: 1.29 cm Posterior wall: 0.92 cm Left ventricle diastole: 4.7 cm Aortic root: 3.3 cm Aortic annulus: 2.7 cm Inferior vena cava: 2.3 cm DOPPLER MEASUREMENTS: Trace aortic regurgitation. Aortic valve velocity: 70 cm/s LVOT velocity: 111 cm/s LVOT VTI: 17.6 cm No mitral regurgitation. Mitral E velocity: 74.0 cm/s Mitral A velocity: 110 cm/s Mitral deceleration time: 183 ms Mild tricuspid regurgitation. No pulmonic regurgitation. Estimated right ventricle systolic pressure at least 85 mmHg assuming a right atrial pressure of at least 20 mmHg. MITRAL ANNULAR TISSUE DOPPLER: E prime septal: 4.0 cm/s E prime lateral: 6.9 cm/s DESCRIPTION: Rhythm was sinus. Image quality was fair. No pericardial effusion. This is a 2D, M-mode, color flow Doppler and pulse wave Doppler examination that included mitral annular tissue Doppler. CONCLUSIONS: 1. Suggestive of severe elevation of estimated right ventricle systolic pressure (at least 85 mmHg). Mild right ventricle dilatation with moderate hypokinesis of the right ventricle and moderate reduction in right ventricle systolic function. Prominent moderate band of the right ventricle. At least mild right atrial dilatation. Inferior vena cava plethora with marked reduction of respiratory variation suggestive of elevated central venous pressure of at least 20 mmHg. 2. Mild hypertrophy of the intraventricular septum. Normal left ventricle regional wall motion, wall thickening, and systolic function. Left ventricular ejection fraction (LVEF) 65% by visual estimate. Grade 1 left ventricle (LV) diastolic dysfunction. 3. Moderate aortic valve sclerosis of a three-cuspid aortic valve. Trace aortic regurgitation. No aortic stenosis. 4. Mild mitral annular calcification. No mitral regurgitation.
[2019-10-04] MEDS: methylPREDNISolone INJ 125 MG/2 ML VIAL (J2930) IV SCH ×2 (01:04→13:20)
[2019-10-04] MEDS: BENZONATATE 100 MG CAP PO PRN (01:04)
[2019-10-04] MEDS: IPRATROPIUM 0.5MG/ALBUTEROL 2.5MG INH SOL UD 3ML (DUONEB)(J7620) NEB SCH ×4 (03:00→18:47)
[2019-10-04 03:31] VITALS: O2SAT 93
[2019-10-04] MEDS: FUROSEMIDE 100 MG/10 ML VIAL (J1940) IV SCH ×3 (04:20→20:58)
[2019-10-04 06:00] VITALS: BP 133/88
[2019-10-04 06:25] LABS: HEMATOCRIT 43.5 % (42.0-52.0); HEMOGLOBIN 14.1 g/dl (13.5-17.5); MEAN CORPUSCULAR HEMOGLOBIN 28.6 pg (27.0-33.0); MEAN CORPUSCULAR HGB CONC 32.4 g/dl (32.0-36.5); MEAN CORPUSCULAR VOLUME 88.2 fl (80.0-96.0); PLATELET COUNT, AUTOMATED 217 10^3/uL (150-450); RED BLOOD COUNT 4.93 10^6/uL (4.30-6.10); WHITE BLOOD COUNT 16.2 10^3/uL (4.0-10.0)
[2019-10-04 06:37] LABS: CALCIUM LEVEL 7.6 MG/DL (8.8-10.2); CREATININE FOR GFR 1.77 MG/DL (0.70-1.30); GLOMERULAR FILTRATION RATE 40.6 (>42); MAGNESIUM LEVEL 2.4 MG/DL (1.8-2.4); POTASSIUM SERUM 3.7 MEQ/L (3.5-5.1)
[2019-10-04] MEDS: INCRUSE ELLIPTA 62.5 MCG INH SCH (08:21)
[2019-10-04] MEDS: ENOXAPARIN 30 MG/0.3 ML SYR (J1650) SC SCH (08:25)
[2019-10-04] MEDS: HumaLOG INSULIN (NovoLOG) PER UNIT SC SCH ×4 (08:25→20:58)
[2019-10-04] MEDS: FAMOTIDINE 20 MG TAB PO SCH (08:25)
[2019-10-04] MEDS: lisinopriL 5 MG TAB PO SCH (08:26)
[2019-10-04] MEDS: PANTOPRAZOLE 40MG TAB (PROTONIX) PO SCH (08:26)
[2019-10-04] MEDS: VITAMIN D 1,000 INTERNATIONAL UNITS TABLET PO SCH (08:26)
[2019-10-04] MEDS: BACTRIM 160MG/800MG DS TAB PO SCH (08:26)
[2019-10-04] MEDS: ASPIRIN 81 MG ENTERIC TAB PO SCH (08:26)
[2019-10-04] MEDS: MONTELUKAST 10 MG TAB PO SCH (08:26)
[2019-10-04] MEDS: FLUTICASONE PROP 0.05% NASAL SPRAY 16 GM (FLONASE) SCH (08:29)
[2019-10-04] MEDS: cefTRIAXone SOD 2 GM in D5W MINI-BAG PLUS 50 ML IV SCH (10:17)
[2019-10-04] MEDS: AZITHROMYCIN INJ 500 MG, VIAL MATE ADAPTER 1 EACH in D5W 250 ML IV SCH (11:19)
[2019-10-04 14:00] VITALS: O2SAT 93
--- NOTE | 2019-10-04 14:34 | IPN ---
DATE: 10/03/2019 The patient complains of increasing dyspnea at rest. He says that it worsens when he tries to ambulate, even just sitting and standing up. This is not unusual for him. He usually drops down into the low 80s, even mid 70s at home, and rapidly comes back up with his saturations when he stops ambulating or exerting himself. According to records from Dr. Person's office, his electrical power engineer, the patient is known to have severe advanced pulmonary fibrosis, hypersensitivity pneumonitis, and is on home oxygen usually at 3-4 liters at home. In the hospital, he was admitted he was admitted for acute chronic obstructive pulmonary disease (COPD) exacerbation. Chest CT shows chronic pulmonary fibrosis which is advanced with areas of honeycombing, cardiomegaly without any acute infiltrate. The patient has trace lower extremity edema. He was tried on IV Lasix overnight with no significant change in his respiratory status. The patient is insistent on keeping to 3-4 liters that he uses at home despite nursing increasing the oxygen to 10 liters due to persistent hypoxia with saturations of 84% to 87%. The patient was 90% on 10 liters nasal cannula this afternoon, afebrile. No chills. He continues to have a cough but difficult to expectorate. The patient complains of increasing lower extremity edema, unable to be relieved with Lasix. Temperature 97.2, pulse 89, respiratory rate 23, blood pressure 123/86, 94% on four liters nasal cannula. GENERAL: The patient appears jes in appearance, erythematous face, thick full neck. He does have conversational dyspnea about four words with use of respiratory accessory muscles, abdominal retractions. No tracheal deviation. No jugular venous distention (JVD). No thyromegaly or cervical lymphadenopathy. Lungs are diminished, very tight, diminished air entry, and faint wheezing. HEART: S1, S2, sinus rhythm. No murmurs, rubs, or gallops. Episodes of sinus tachycardia. Abdomen is distended, obese. Positive bowel sounds times four quadrants. No rebound or guarding. EXTREMITIES: Trace edema. LABORATORY DATA: White count 14, hemoglobin 13, hematocrit 41, platelet count 217. Sodium 132, potassium 3.7, chloride 99, bicarbonate 26, BUN 43, creatinine 1.75, glucose of 237, BNP of 6239. Respiratory panel is negative. Blood culture is negative. CT chest: Advanced COPD, areas of fibrosis and honeycombing, cardiomegaly. No acute infiltrate is noted. Renal ultrasound: No hydronephrosis. Bilateral renal cortical atrophy. 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 ACTIVE ISSUES: 1. Acute on chronic hypoxic respiratory failure secondary to advanced pulmonary fibrosis, severe pulmonary hypertension, bird fancier's lung with hypersensitivity pneumonitis and pulmonary fibrosis noted on CT chest. Per Dr. Winters if the patient is not far from baseline with his chronic hypoxia, she recommended full antibiotic course with ceftriaxone and azithromycin despite not having an infiltrate on CT chest and to continue with his pneumocystis pneumonia (PCP) prophylaxis Bactrim. Continue with Solu-Medrol, supplemental oxygen to keep saturations at 88% to 92%. No need for increased oxygen saturations beyond 92% as the patient is chronically hypoxic. The patient is to be clinically kept dry. However, with acute kidney injury, we will defer to nephrology for any diuresis. 2. Acute kidney injury in the setting of recent diuretics for possible congestive heart failure (CHF) exacerbation. Echocardiogram has been ordered. Nephrology consulted. Currently on Lasix. We will monitor for worsening renal dysfunction. 3. History of coronary artery disease (CAD). Resumed on his home medications. 4. Deep vein thrombosis (DVT) prophylaxis, on chronic Lovenox. 5. Hyperlipidemia, on Lipitor.
[2019-10-04] MEDS: RAMELTEON 8 MG TAB (ROZEREM) PO SCH (20:58)
[2019-10-04] MEDS: ATORVASTATIN 20 MG TAB PO SCH (20:58)
[2019-10-04] MEDS: CLOPIDOGREL 75 MG TAB PO SCH (20:58)
[2019-10-04 21:00] VITALS: O2SAT 93
[2019-10-04 22:00] VITALS: BP 108/77
--- NOTE | 2019-10-04 23:26 | IPN ---
DATE: 10/04/2019 This morning the patient says that he feels much better now that his oxygen has been decreased to his baseline of 3 to 4 liters, he is saturating about 80 to 92%. According to nursing when he tries to ambulate from bedroom to the bathroom, the patient desaturates down to about 84%. The patient however is known to desaturate down to about 84, 85% at home and even in the low 80s when goes to Dr. Person's office and bounces right back to about 80% per the patient when he rests. The patient was given IV Lasix yesterday with output of 2.05 liters , negative 430. He says he feels better. Chest CT however shows no madie pulmonary edema. He does have pulmonary fibrosis. Respiratory panel was negative. Isolation can be discontinued. This morning he denies any chest pain, pressure, tightness, lightheadedness or dizziness. His shortness of breath has slightly improved. He does not have as much conversational dyspnea as yesterday. He has no new complaints. Temperature 97.9, pulse 89, respiratory rate 22, blood pressure 133/88, 90% on 4 liters nasal canula. General: The patient is awake, alert, oriented times 3. He appears ghotra in appearance. He appears flushed. No jugular venous distension (JVD) or thyromegaly. No cervical lymphadenopathy. Moist mucous membranes. Lungs are diminished with faint expiratory wheezing. Heart: S1, S2 sinus rhythm. Abdomen is obese, soft, nontender, nondistended. Extremities: Trace edema. LABORATORY DATA: White count 16, hemoglobin 14, hematocrit 43, platelet count 217. Sodium 136, potassium 3.7, chloride 101, bicarbonate 25, BUN 44, creatinine 1.77. Previous creatinine 1.75, glucose of 281. Respiratory panel is negative. Blood culture negative after [address] chest on 10/03/2019: Pulmonary fibrosis. Advanced chronic obstructive pulmonary disease (COPD) with honeycombing, cardiomegaly, vascular calcification. No acute infiltrate seen. Input overnight was 1.6 liters, output of 2049. Negative 430. Current weight is 115.8 kg increased from 113.9 kg on admission. Echocardiogram read by Dr. Brandt 10/03/2019 shows ejection fraction of 65%. Right ventricular systolic pressure of 85% mmHg with mild right ventricular dilatation, moderate hypokinesis of the right ventricle, moderate reduction in right ventricle systolic function, prominent moderate band of the right ventricle, mild right atrial dilatation, elevated central venous pressure of at least 20 mmHg. The patient has mild hypertrophy of the intraventricular septum with normal left ventricular wall motion, thickening and systolic function. Ejection fraction of 65% with grade 1 left ventricular diastolic dysfunction. No mitral regurgitation. No aortic stenosis. Trace aortic regurgitation. Moderate sclerosis of the tricuspid aortic valve. ASSESSMENT AND PLAN: This is a 69-year-old male with known history of bird fancier's lung, hypersensitivity pneumonitis, oxygen dependent, follows with Dr. Person with pulmonary hypertension, right ventricular systolic pressure of 85 mmHg and grade 1 left ventricular diastolic dysfunction presents to the emergency room with worsening shortness of breath and able to more than 10 feet with previous history of smoking, quit about 15 years ago. The patient does have a history of coronary artery disease and possible chronic obstructive pulmonary disease (COPD). IMPRESSION: 1. Acute on chronic hypoxic respiratory failure secondary to chronic obstructive pulmonary disease (COPD) exacerbation with underlying pulmonary fibrosis with hypersensitivity pneumonitis, bird fancier's lung, honeycombing on CT of the chest. Per Dr. Winters, who reviewed the patient's CT of the chest, as compared to prior CT, as well as after reviewing Dr. Person's note, the patient is currently best treated with IV antibiotics, drying him out as best we can. Keeping him at euvolemia and net negative balance and continuing with Solu-Medrol. The patient has progressive lung disease and not expected to reverse any of the honeycombing and permanent changes on the lungs. I have discussed this with him at length at the bedside. He understands that the pulmonary fibrosis is progressive and he understands that he is now becoming steroid dependent. He is able to say that when he comes down on lower doses of it, he does okay for a few days and then he is short of breath again. He is quite concern about the side effects of steroids, but understands that it is necessary. He will defer this management to his telephone solicitor as outpatient. 2. History of chronic diastolic heart failure with elevated BNP, but most likely secondary to pulmonary hypertension with right ventricular systolic pressure of 85 mmHg. At this time, he is being diuresed. He was net negative balance yesterday. He remains with acute kidney injury secondary to diuresis. Defer to nephrology for further management. Strict input and output. Daily weights. Renally dose all medications and avoid further nephrotoxins. 3. Coronary artery disease. Resumed on his home medications. 4. Obesity complicating his care, chronic. 5. Code status: DO NOT RESUSCITATE, DO NOT INTUBATE. MOLST form has been signed.
[2019-10-05] MEDS: methylPREDNISolone INJ 125 MG/2 ML VIAL (J2930) IV SCH ×2 (00:44→13:00)
[2019-10-05] MEDS: IPRATROPIUM 0.5MG/ALBUTEROL 2.5MG INH SOL UD 3ML (DUONEB)(J7620) NEB SCH ×3 (01:34→14:00)
[2019-10-05] MEDS: FUROSEMIDE 100 MG/10 ML VIAL (J1940) IV SCH ×2 (04:22→12:00)
[2019-10-05 06:00] VITALS: BP 110/73
[2019-10-05 06:13] LABS: HEMATOCRIT 45.5 % (42.0-52.0); HEMOGLOBIN 14.6 g/dl (13.5-17.5); MEAN CORPUSCULAR HEMOGLOBIN 28.6 pg (27.0-33.0); MEAN CORPUSCULAR HGB CONC 32.1 g/dl (32.0-36.5); MEAN CORPUSCULAR VOLUME 89.2 fl (80.0-96.0); PLATELET COUNT, AUTOMATED 217 10^3/uL (150-450); WHITE BLOOD COUNT 16.3 10^3/uL (4.0-10.0)
[2019-10-05 06:29] LABS: CALCIUM LEVEL 7.4 MG/DL (8.8-10.2); CREATININE FOR GFR 1.74 MG/DL (0.70-1.30); GLOMERULAR FILTRATION RATE 41.4 (>42); MAGNESIUM LEVEL 2.8 MG/DL (1.8-2.4); POTASSIUM SERUM 4.2 MEQ/L (3.5-5.1)
--- NOTE | 2019-10-05 07:18 | IPN ---
DATE: 10/04/2019 SUBJECTIVE: The patient was seen and examined at the bedside today morning. He is still significantly hypoxemic despite being on 4 liters of oxygen. He was saturating in low 80s when I saw him this morning and he said that he just moved out of bed and that made him short of breath. He continues to be on IV diuretic. He reports lower extremity edema is getting better. Creatinine is stable at 1.7 and blood pressure is within the acceptable range. OBJECTIVE: Vital signs: Temperature is 97.9 degrees Fahrenheit, blood pressure 133/88. Pulse is 89, respiratory of 22, saturating 90% on nasal cannula at 4 liters. Intake and output: Urine output recorded is 2 liters yesterday, 1300 mL so far today since overnight. Weight in the bed scale is 115.8 kg. PHYSICAL EXAMINATION: General: The patient is awake, alert, oriented times three, laying in bed, moderate respiratory distress. Head and neck exam: Extraocular muscles intact. Pupils equally round and reactive to light. Mucous membranes are moist. He is wearing a nasal cannula. Neck is supple. Moderately elevated JVD was noted. Cardiovascular: S1, S2, regular rate. 1+ edema of the of the feet was noted. Respiratory: Decreased breath sounds at the bases with mild expiratory rhonchi bilaterally at the bases. Abdomen: Obese, positive bowel sounds. Nontender. Musculoskeletal: The patient has clubbing and cyanosis in the extremities. BEAN SPROUT LABORER: No focal deficit, power is 5/5 in all extremities. LABORATORY REVIEW: CBC showed WBC 16.2, hemoglobin 14.1, platelets are 217. BMP showed sodium 136, potassium 3.7, chloride 101, bicarbonate 25, BUN 44, creatinine is 1.7. CURRENT INPATIENT MEDICATIONS: The patient's medications were all reviewed by myself. He continues to be on IV antibiotics and IV diuretics. He is on Lasix 60 mg IV every 8 hours. No other change in the medications today apart from lowering the dose of Solu-Medrol which has been decreased to 60 mg IV every 12 hours. ASSESSMENT/PLAN: 1. Acute on chronic hypoxic respiratory failure secondary to COPD exacerbation. The patient continues to be on steroids, antibiotics and nebulizations. He has end-stage COPD because of severe pulmonary fibrosis and honeycombing on the CT scan. 2. Acute decompensated cor pulmonale. Patient's echocardiogram showed severely dilated right heart with severe pulmonary hypertension. The patient is getting Lasix 60 mg IV every 8 hours. Continue current dose. Lower extremity edema is getting better. 3. Acute kidney injury superimposed on chronic kidney disease stage III. The patient's creatinine is stable at 1.7. Okay to continue current dose of diuretics because of severely decompensated heart failure and COPD. Baseline creatinine is 1.2. 4. Hyponatremia. The patient has hypervolemic hyponatremia. Sodium is improved within the normal range with the diuretics. 5. Coronary artery disease. Continue current dose of Lipitor, Plavix, lisinopril and aspirin. He is not a candidate for use of beta blockers at this time.
[2019-10-05] MEDS: INCRUSE ELLIPTA 62.5 MCG INH SCH (07:43)
[2019-10-05] MEDS: HumaLOG INSULIN (NovoLOG) PER UNIT SC SCH ×2 (08:02→12:10)
[2019-10-05] MEDS: VITAMIN D 1,000 INTERNATIONAL UNITS TABLET PO SCH (08:03)
[2019-10-05] MEDS: ASPIRIN 81 MG ENTERIC TAB PO SCH (08:03)
[2019-10-05] MEDS: MONTELUKAST 10 MG TAB PO SCH (08:03)
[2019-10-05] MEDS: FAMOTIDINE 20 MG TAB PO SCH (08:03)
[2019-10-05] MEDS: PANTOPRAZOLE 40MG TAB (PROTONIX) PO SCH (08:03)
[2019-10-05 08:05] VITALS: BP 119/80
[2019-10-05] MEDS: lisinopriL 5 MG TAB PO SCH (08:05)
[2019-10-05] MEDS: FLUTICASONE PROP 0.05% NASAL SPRAY 16 GM (FLONASE) SCH (08:05)
[2019-10-05] MEDS: ENOXAPARIN 30 MG/0.3 ML SYR (J1650) SC SCH (08:05)
[2019-10-05] MEDS: cefTRIAXone SOD 2 GM in D5W MINI-BAG PLUS 50 ML IV SCH (10:23)
[2019-10-05] MEDS: AZITHROMYCIN INJ 500 MG, VIAL MATE ADAPTER 1 EACH in D5W 250 ML IV SCH (11:00)
[2019-10-05] MEDS ORDERED: TORS20TA2 PO (11:19)
[2019-10-05] MEDS ORDERED: PRED20TA PO (11:20)
[2019-10-05 14:00] VITALS: BP 149/89
--- NOTE | 2019-10-06 10:01 | IPN ---
DATE OF SERVICE: 10/05/2019 SUBJECTIVE: The patient was seen and examined at the bedside today morning. He reports that his shortness of breath is improved back to the baseline. His oxygen saturation right now is in high 80s to low 90s. At this time, renal function is stable with a creatinine of 1.7. The patient is requesting to be discharged home now. OBJECTIVE: Vital Signs: Temperature is 98 degrees Fahrenheit, blood pressure 149/89, pulse is 95, respiratory rate of 16, saturating 90% with a high-flow nasal cannula at 4 liters. Intake and Output: Urine output recorded is 1500 mL yesterday, 400 mL so far today since overnight. Weight in the bed scale was 115.8 kg yesterday. PHYSICAL EXAMINATION: General: The patient is awake, alert, oriented times three, sitting up in the bed, in mild respiratory distress wearing nasal cannula. Head and Neck Exam: Extraocular muscles intact. Pupils equally round and reactive to light. Mucous membranes are moist. Neck is supple. Mildly elevated jugular venous distention (JVD). Cardiovascular: S1, S2, regular rate. 1+ edema of the feet only. Respiratory: Decreased breath sounds bilaterally at the bases and expiratory rhonchi. Abdomen is soft, obese, positive bowel sounds. No organomegaly. Musculoskeletal: The patient has some clubbing of the fingernails. Central Nervous System (AIRPLANE COVERER): No focal deficit. Power is 5/5 in all extremities. LAB REVIEW: CBC showed WBC 16.3, hemoglobin 14.6, platelets are 117. BMP showed sodium 139, potassium 4.2, chloride 105, bicarbonate 24, BUN 48, creatinine is 1.7, calcium 7.4, and magnesium is 2.8. CURRENT INPATIENT MEDICATIONS: The patient's medications were all reviewed by me. He continues to be on Lasix 60 mg IV every 8 hours. No significant change in the medications today as compared with yesterday. ASSESSMENT AND PLAN: 1. Acute on chronic hypoxic respiratory failure secondary to chronic obstructive pulmonary disease (COPD) exacerbation. The patient was getting steroids, antibiotics, nebulizations, and diuretics. Shortness of breath is significantly better. He is requiring 4 liters of oxygen at this time. The patient is requesting to be discharged and he is signing against medical advice today. 2. Acute decompensated cor pulmonale. The patient's volume status is getting better. He was getting Lasix IV. If he is discharged today, he should be discharged on torsemide 40 mg by mouth twice a day. 3. Acute kidney injury superimposed on chronic kidney disease, stage III. The patient is requiring of aggressive diuresis because of cor pulmonale and COPD exacerbation. Creatinine has been staying stable at 1.7 with IV diuretics. As mentioned above, diuretic dose is being changed to torsemide 40 mg by mouth twice a day on discharge. DISPOSITION: The patient is requesting to sign out against medical advice. If the patient is willing to come to nephrology clinic, he needs to followup with nephrology within 2 weeks after discharge from the hospital.
--- NOTE | 2019-10-07 20:13 | DSES ---
DATE OF ADMISSION: 10/02/2019 DATE OF DISCHARGE: 10/05/2019 SHODER FILLER: Dr. Sy PRIMARY DISCHARGE DIAGNOSIS: 1. Acute on chronic diastolic heart failure. 2. Chronic obstructive pulmonary disease (COPD) exacerbation. 3. Chronic hypoxic hypercarbic respiratory failure on 3 to 4 liters of oxygen at home, steroid dependent. 4. Acute renal failure, nonoliguric. DISCHARGE MEDICATIONS: - torsemide 40 mg twice a day - prednisone taper, once the taper is completed the patient is to resume his home dose of prednisone - albuterol 2 puffs every 4 hours as needed - aspirin 81 mg daily - atorvastatin 40 mg every evening - benzonatate 100 mg three times a day as needed - vitamin D3 1000 units daily - Plavix 75 mg daily - Flonase 2 sprays daily - lisinopril 5 mg daily - montelukast 10 mg daily - ranitidine one tablet twice a day - Janumet one tab twice a day - Bactrim prophylaxis - Incruse Ellipta one puff inhaled daily HOSPITAL COURSE: This is a 69-year-old male with history of hypersensitivity pneumonitis, bird fancier lung, follows with Dr. Person as outpatient on chronic oxygen 3 to 4 liters at home and PCP prophylaxis with Bactrim. The patient was found to be increasingly hypoxic and required admission. He was being treated for advanced pulmonary fibrosis, severe pulmonary hypertension, bird fancier lung with IV steroids and was found to be extremely hypoxic about 84% on room air. Upon review of the patient's records, he had been noted to desaturate at home according to Dr. Person's note and was thought to be fairly end stage for this lung disease. Per review by Dr. Winters, The patient was encouraged to have diuresis most likely due to fluid overload from severe pulmonary hypertension and Cor pulmonale. Nephrology was consulted due to stage III renal failure and was diuresed with Lasix 60 mg intravenously every 8 hours, as well as a 1.5 liter fluid restriction. He remained net negative balance from 10/02 to 10/04. However, the patient was adamant about leaving against medical advice and did not want to keep the fluid restriction. The patient was encouraged to continue with torsemide 40 mg twice a day as outpatient. He was not optimized for hospital discharge, but wanted to leave against medical advice. PHYSICAL EXAMINATION ON DISCHARGE: Temperature 97.9, pulse71, respiratory rate 19, blood pressure 110/73, 92% on 4 liters nasal canula. General: The patient appears jes in appearance, cushingoid almost with no jugular venous distension (JVD), no thyromegaly. Lungs: Diminished with fine crackles at the bases. Faint expiratory wheeze. Air entry was equal bilaterally. Heart: S1, S2. Sinus rhythm. No murmurs, rubs or gallops. Abdomen: Obese, soft, nontender, nondistended. Extremities: Still with trace 1+ pitting edema. White 16, hemoglobin 14, hematocrit 45, platelet count 217, sodium 139, potassium 4.2, chloride 105, bicarbonate 24, BUN 48, creatinine 1.74, glucose of 288. Respiratory panel is negative. Blood culture pending, but no growth after [address] shows advanced chronic obstructive pulmonary disease (COPD) with extensive areas of fibrosis and honeycombing. Cardiomegaly, vascular calcification. No acute infiltrate is seen. There are advanced emphysematous changes with areas of honeycombing extensively in the upper lobes bilaterally to a lesser extent in lower lobes bilaterally. There are fairly large bullae in the right apex. No superimposing infiltrate is appreciated. There is no evidence of pleural or pericardial effusion, coronary artery vascular calcification is noted. Mild cardiomegaly. No karthik abnormality. Renal ultrasound on 10/02/2019 shows bilateral renal cortical atrophy with no hydronephrosis. DISCHARGE INSTRUCTIONS: The patient was instructed to return to the emergency room should he have worsening shortness of breath. He was encouraged to keep to a fluid restriction to 1.5 liters and may benefit from further Diuresis. He is however wanting to leave against medical advice today despite the risks and benefits of staying in the hospital for further treatment.
== END 2019-10-05 15:41 | disposition home health service (06) | DRG 291 ==
LOC: M ED 01:31 → M ED INP 05:43 → ENRESERV 05:53 → M MSPAV 06:45
PROVIDERS: ADMIT Internal Medicine; ATTEND General Practice
DX: I50.33 Acute on chronic diastolic (congestive) heart failure (principal); J96.21 Acute and chronic respiratory failure with hypoxia; N17.9 Acute kidney failure, unspecified; Z68.41 Body mass index [BMI] 40.0-44.9, adult; J44.1 Chronic obstructive pulmonary disease with (acute) exacerbation; E87.1 Hypo-osmolality and hyponatremia; I25.10 Atherosclerotic heart disease of native coronary artery without angina pectoris; E78.5 Hyperlipidemia, unspecified; N18.3 Chronic kidney disease, stage 3 (moderate); Z66 Do not resuscitate; J84.10 Pulmonary fibrosis, unspecified; E66.9 Obesity, unspecified; I27.29 Other secondary pulmonary hypertension; J67.2 Bird fancier's lung; Z95.5 Presence of coronary angioplasty implant and graft; Z87.891 Personal history of nicotine dependence; Z99.81 Dependence on supplemental oxygen; Z79.82 Long term (current) use of aspirin; Z79.02 Long term (current) use of antithrombotics/antiplatelets; Z79.52 Long term (current) use of systemic steroids; Z79.899 Other long term (current) drug therapy; Z88.8 Allergy status to other drugs, medicaments and biological substances; Z91.013 Allergy to seafood

== ENCOUNTER 2019-10-24 17:34 | Inpatient (IN) | payer MEDICARE, MEDICAID ==
[~2019-10-24] VITALS: Ht 170.2 cm; Wt 110.1 kg
[~2019-10-24 17:34] MED LIST changes: +ATOR40TA75; +ATOR40TA75 PO; +BACT800T5 PO; +BENZ-18; +BENZ-18 PO; +CLOP75TA2; +CLOP75TA2 PO; +FLON1SPR; +FLUTISP; +FURO40TA2; +FURO40TA2 PO; +INCR1INH; +INCR1INH INH; +JANU50TA8; +JANU50TA8 PO; +LISI-542; +LISI-542 PO; +MONT10TA4; +MONT10TA4 PO; +PRED20TA; +PRED20TA PO; +PROAAER10; +PROAAER10 INH; +RANI-397 PO; +RANI150T14; +SULF400T14; +TORS20TA2 PO; +VITAD1000T PO
[2019-10-24] MEDS ORDERED: PRED10PA2 PO (17:59)
[2019-10-24] MEDS ORDERED: FUROSEMIDE 40 MG/4 ML VIAL (J1940) IV SCH (18:00)
[2019-10-24 18:08] LABS: BASO # 0.1 10^3/uL (0.0-0.2); BASO % 0.3 % (0.0-1.0); EOS % 0.1 % (0.0-3.0); HEMOGLOBIN 15.9 g/dl (13.5-17.5); LYMPH # 1.5 10^3/uL (1.5-5.0); LYMPH % 10.1 % (24.0-44.0); MEAN CORPUSCULAR HEMOGLOBIN 28.6 pg (27.0-33.0); MEAN CORPUSCULAR HGB CONC 32.4 g/dl (32.0-36.5); MEAN CORPUSCULAR VOLUME 88.3 fl (80.0-96.0); MONO # 0.9 10^3/uL (0.0-0.8); MONO % 5.6 % (0.0-5.0); NEUTROPHILS # 12.7 10^3/uL (1.5-8.5); NEUTROPHILS % 83.1 % (36.0-66.0); PLATELET COUNT, AUTOMATED 308 10^3/uL (150-450); RED BLOOD COUNT 5.55 10^6/uL (4.30-6.10); WHITE BLOOD COUNT 15.2 10^3/uL (4.0-10.0)
[2019-10-24 18:35] LABS: INFLUENZA A AMPLIFICATION NEGATIVE (NEGATIVE); INFLUENZA B AMPLIFICATION NEGATIVE (NEGATIVE)
[2019-10-24 18:40] LABS: BILIRUBIN,DIRECT 0.4 MG/DL (0.0-0.2); CALCIUM LEVEL 7.8 MG/DL (8.8-10.2); CK-MB VALUE MASS 2.6 NG/ML (<3.6); CREATININE FOR GFR 1.51 MG/DL (0.70-1.30); GLOMERULAR FILTRATION RATE 48.7 (>42); MB/CK RELATIVE INDEX 6.34 (< OR =4); POTASSIUM SERUM 3.5 MEQ/L (3.5-5.1); TOTAL PROTEIN 5.5 GM/DL (6.4-8.2); TROPONIN I 0.04 NG/ML (< 0.10)
[2019-10-24] MEDS ORDERED: FUROSEMIDE 40 MG/4 ML VIAL (J1940) IV ONE (18:45)
--- NOTE | 2019-10-24 19:11 | REP ---
HISTORY: Dyspnea. COMPARISON: Multiple, the latest portable examination of 10/02/2019. The technique utilized in obtaining the radiograph has magnified the cardiac silhouette and accentuated the interstitial markings. Once again, there is cardiomegaly accentuated by technique. Once again, there is a diffuse increase in the interstitial markings throughout the lung martinez, status quo. No acute patchy parenchymal opacities or pleural effusions have developed. There is no change in the osseous structures. IMPRESSION: Stable appearing chronic changes consistent with pulmonary fibrosis, however, correlate clinically to rule out the possibility of acute disease superimposed on chronic change. Electronically Signed by Perry Giles DO 10/24/2019 07:56 P
[2019-10-24] MEDS ORDERED: PRED10TA2 PO (19:44)
[2019-10-24] MEDS ORDERED: TORS20TA2 PO (19:44)
[2019-10-24] MEDS ORDERED: MOM 30ML SUSPENSION UDC PO PRN (20:15)
[2019-10-24] MEDS ORDERED: ACETAMINOPHEN TAB 650MG DOSE (2X325MG) PO PRN (20:15)
[2019-10-24] MEDS ORDERED: ALBUTEROL 90 MCG/ACT 8GM HFA INHALER INH PRN (20:15)
[2019-10-24] MEDS ORDERED: MAALOX 30 ML SUSP *UDC PO PRN (20:15)
--- NOTE | 2019-10-24 20:49 | HPEPDOC ---
General Date of Admission Oct 24, 2019 at 20:01 Date of Service: Oct 24, 2019 Chief Complaint The patient is a 69-year-old male admitted with a reason for visit of SOB. Source: Patient Exam Limitations: No limitations Timing/Duration: Day(s) (4) Severity: Moderate Associated Symptoms: Shortness of breath, Weakness, Hypotension History of Present Illness 69-year-old male with past medical history of chronic respiratory failure due to COPD and pulmonary fibrosis, pulmonary hypertension, hyperlipidemia, coronary artery disease status post 4 stents, diabetes presents with worsening dyspnea on exertion and lower extremity edema for the past 4 days. Patient was recently hospitalized for CHF exacerbation proximally one month prior. After his discharge, patient was doing fairly well and was taking all his medications as prescribed. He was discharged on torsemide 40 mg twice a day at that time. However, patient noted that his blood pressure was a little on the low side approximately 4-5 days ago. He spoke to his informix developer who recommended cutting his torsemide dosing down to 20 mg twice a day. Since that time, patient has become increasingly short of breath and noticed that his legs have started swell up. He states that his legs were not swollen for approximately 3 weeks post discharge. He currently denies any orthopnea but does say that he gets very dyspneic on exertion. He can only walk 15 feet before becoming severely short of breath. Prior to this, he was walking approximately 50-60 yards without issues. He has been on 4 L nasal cannula at home and has been saturating between 88 and 92%. He currently denies any recent fevers, chills, abdominal pains, chest pains , palpitations, and nausea, vomiting, diarrhea. He has had no recent sick contacts and has been staying home due to coronavirus fears. Patient also reports that he has become slightly more short of breath since having his steroid dose taper down to 10 mg of prednisone daily. He was taking 20 mg prior and had was in the middle of making an appointment to see his digital music instructor, Dr. Person. Upon ER evaluation, patient was noted to be hypoxic in the low 80s which required additional oxygen supplementation. Chest x-ray did show some evidence of fluid overload on top of his chronic lung disease. Patient to be admitted to hospital service for further evaluation and management of likely fluid overload state. Home Medications Scheduled Aspirin (Aspirin EC) 81 Mg Tab, 81 MG PO DAILY, (Reported) Atorvastatin Calcium (Atorvastatin Calcium) 40 Mg Tablet, 40 MG PO QHS, (Reported) Benzonatate (Benzonatate) 100 Mg Capsule, 100 MG PO BID, (Reported) Cholecalciferol (Vitamin D3) (Vitamin D3) 1,000 Unit Tablet, 1,000 UNITS PO DAILY, (Reported) Clopidogrel Bisulfate (Clopidogrel) 75 Mg Tablet, 75 MG PO DAILY, (Reported) Fluticasone Propionate (Flonase Allergy Relief) 9.9 Ml [place].susp, 2 SPRAYS NA DAILY, (Reported) Montelukast Sodium (Montelukast Sodium) 10 Mg Tablet, 10 MG PO QHS, (Reported) Prednisone (Prednisone) 10 Mg Tablet, 10 MG PO DAILY, (Reported) Sitagliptin Phos/Metformin HCl (Janumet 50-1,000 mg Tablet) 1 Each Tablet, 1 TAB PO BID, (Reported) Sulfamethoxazole/Trimethoprim (Bactrim Ds Tablet) 1 Each Tablet, 1 TAB PO 3XW, (Reported) MONDAY, MONDAY AND MONDAY Torsemide (Torsemide) 20 Mg Tablet, 20 MG PO BID, (Reported) Umeclidinium [place] (Incruse Ellipta) 62.5 Mcg Blst.w.dev, 1 PUFF INH DAILY, (Reported) Scheduled PRN Albuterol Sulfate (Proair Hfa) 8.5 Gm Hfa.aer.ad, 2 PUFF INH Q4H PRN for SHORTNESS OF BREATH, (Reported) Allergies Coded Allergies: benazepril (Verified Allergy, Unknown, UNKNOWN REACTION, 10/24/19) shellfish derived (Verified Allergy, Unknown, HIVES, 10/24/19) Past Medical History Medical History COPD, pulmonary fibrosis, pulmonary hypertension, hyperlipidemia, coronary artery disease, diabetes Surgical History 4 stents placed in the heart with last stent being placed for months prior Family History Significant Family History: Diabetes, Heart disease CHF in mother COPD in multiple siblings Social History * Smoker: former Smoker (has approximately 60+-pack-year smoking history, quit approximately 15 years ago) Alcohol: occationally Drugs: denies Recent Travel/Sick Contacts: Denies: Recent travel, Recent sick contacts Psychosocial History: No pertinent psych hx Currently lives alone and is independent in all his ADLs and IADLs. 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 A-FIB/CHADSVASC A-FIB History Current/History of A-Fib/PAF?: No Review of Systems Constitutional: Reports: Fatigue; Denies: Chills, Fever, Malaise Eyes: Denies: Pain, Vision change ENT: Denies: Head Aches, Ear Pain, Sinus Congestion, Sore Throat Skin: Denies: Rash, Lesions, Jaundice Pulmonary: Reports: Dyspnea, Cough; Denies: Pleuritic Chest Pain Cardiovascular: Reports: Edema; Denies: Chest Pain, Palpitations, Orthopnea, Lt Headedness Gastrointestinal: Reports: Constipation; Denies: Nausea, Vomiting, Abdominal Pain, Diarrhea Genitourinary: Denies: Dysuria, Frequency Musculoskeletal: Denies: Neck Pain, Back Pain Neurological: Denies: Weakness, Numbness, Change in speech, Confusion Psych: Reports: Mood Normal Physical Examination General Exam: Positive: Alert, Cooperative, No Acute Distress, Other (pleasant white male who appears to be stated age. Able to talk in 5-6 word sentences prior to becoming short of breath. Appears to be comfortable while lying down.) Eye Exam: Positive: PERRLA, Conjunctiva & lids normal, EOMI; Negative: Sclera icteric ENT Exam: Positive: Atraumatic, Mucous membr. moist/pink Neck Exam: Positive: Supple; Negative: JVD, thyromegaly Chest Exam: Positive: Other (diminished breath sounds noted bilaterally. Inspiratory fine crackles appreciated in bibasilar lung martinez. Faint Expiratory wheezing noted.) Heart Exam: Positive: Tachycardic, Regular Rhythm, Normal S1, Normal S2 Abdomen Exam: Positive: Normal bowel sounds, Soft; Negative: Tenderness, Hepatospenomegaly, Mass Extremity Exam: Positive: Edema (1+ pitting edema up to the knees); Negative: Clubbing Skin Exam: Positive: Nl turgor and temperature; Negative: Rash, Breakdown Neuro Exam: Positive: Normal Speech, Strength at 5/5 X4 ext, Normal Tone, Cranial Nerves 3-12 NL Psych Exam: Positive: Mental status NL, Mood NL Vital Signs Vital Signs Date Time Temp Pulse Resp B/P (MAP) Pulse Ox O2 Delivery O2 Flow Rate FiO2 10/24/19 18:09 Nasal Cannula 3.0 10/24/19 18:04 116 26 84 10/24/19 17:46 99.7 151/97 (115) Laboratory Data Labs 24H Laboratory Tests 2 10/24/19 17:50: Immature Granulocyte % (Auto) 0.8, Neutrophils (%) (Auto) 83.1H, Lymphocytes (%) (Auto) 10.1L, Monocytes (%) (Auto) 5.6H, Eosinophils (%) (Auto) 0.1, Basophils (%) (Auto) 0.3, Neutrophils # (Auto) 12.7H, Lymphocytes # (Auto) 1.5, Monocytes # (Auto) 0.9H, Eosinophils # (Auto) 0.0, Basophils # (Auto) 0.1, Nucleated Red Blood Cells % (auto) 0.0, Anion Gap 15, Glomerular Filtration Rate 48.7, Calcium Level 7.8L, Total Bilirubin 1.0, Direct Bilirubin 0.4H, Aspartate Amino Transf (AST/SGOT) 18, Alanine Aminotransferase (ALT/SGPT) 37, Alkaline Phosphatase 54, Total Creatine Kinase 41, Creatine Kinase MB 2.6, Creatine Kinase MB Relative Index 6.34H, Troponin I 0.04, GI-Yjl-V-Type Natriuretic Peptide 7935H, Total Protein 5.5L, Albumin 3.0L, Albumin/Globulin Ratio 1.20, Influenza Type A (RT- PCR) NEGATIVE, Influenza Type B (RT-PCR) NEGATIVE CBC/BMP Laboratory Tests 10/24/19 17:50 RAD Interpretation STUDY: CXR Rad Actions: Report Reviewed, Films Reviewed, Discussed with the pt RAD Interpretation: Worse, Other Result Comments: (cardiomegaly noted. Evidence of palmar fibrosis also present which is unchanged. Increase in interstitial markings noted from previous CXR on prior admission. No pleural effusions noted on exam.) Assessment/Plan 69-year-old male with known chronic respiratory failure due to multiple etiologies presents with worsening shortness of breath and lower extremity edema. Edema is likely due to decrease in diuretic dose which has increased his fluid retention causing his symptoms. Patient to be admitted for diuresis and medical optimization at this time. Plan / VTE VTE Prophylaxis Ordered?: Yes Plan Plan Acute on chronic exacerbation of congestive heart failure with preserved ejection fraction Likely due to reduced diuretic dose. Patient has known right-sided heart failure noted on echo done earlier this month. Patient also has evidence of diastolic dysfunction noted as well. Currently presents fluid overloaded with pitting edema as well as increased interstitial markings seen on chest x-ray. We'll start IV diuresis for now. - IV Lasix 40 mg twice a day - Daily weights and strict I's and O's - 1500 mL fluid restriction - Supplemental oxygen as needed to maintain saturation between 88-92% - Telemetry monitoring Chronic respiratory failure due to pulmonary fibrosis, COPD, pulmonary hypertension Patient has known chronic respiratory failure and is on 4 L of nasal cannula at home. Currently some wheezing is appreciated but patient states he is at baseline. We will continue with his home medications for now and titrate oxygen as needed to maintain saturation between 88 and - Continue with DuoNeb's twice a day - Continue with Spiriva (on umeclidinium at home, non formulary) - Continue with prednisone 10 mg daily for now - Follow up pulmonary consult regarding increasing prednisone dose as patient s tates he was more short of breath after an dosage decreased - Dr. Person - Continue albuterol MDI when necessary - Continue montelukast - PT eval coronary artery disease [place]. Currently not having chest pain. - continue with his aspirin, Plavix, statin Type 2 diabetes On oral hypoglycemic meds at home - Hold oral meds for now on patient - Place on sliding scale and hypoglycemic protocol CKD 3 Currently stable. Renal function is at baseline. - Monitor renal function while diuresing - Avoid nephrotoxin medications adjust medications for reduced GFR - Check electrolytes daily Diet: Continue Current Activity: Continue Current Therapy: PT Medications: Change to IV Respiratory: Increase Oxygen Diagnostics: Check Labs, Repeat Labs in AM Anticipated Discharge: Home DION DORAN MD Oct 24, 2019 20:49
[2019-10-24 21:35] VITALS: BP 117/86
[2019-10-24] MEDS: DOCUSATE SODIUM 100 MG CAP PO SCH (22:45)
[2019-10-24] MEDS: HEPARIN SOD (PORCINE) 5000 UNITS/ML VIAL (J1644 PER 1000UNITS) SC SCH (22:45)
[2019-10-24] MEDS: BENZONATATE 100 MG CAP PO SCH (22:46)
[2019-10-24] MEDS: MONTELUKAST 10 MG TAB PO SCH (22:46)
[2019-10-24] MEDS: ATORVASTATIN 20 MG TAB PO SCH (22:46)
[2019-10-25] MEDS: guaiFENesin SYRUP 200 MG/10 ML UDC PO PRN (00:12)
[2019-10-25] MEDS ORDERED: DEXTROSE 50% 50 ML SYRINGE IV PRN (01:15)
[2019-10-25] MEDS ORDERED: GLUCOSE 4 GM CHEW TABLET PO PRN (01:15)
[2019-10-25] MEDS ORDERED: GLUCAGON FOR INJ 1 MG VIAL (J1610) SC PRN (01:15)
[2019-10-25] MEDS: HEPARIN SOD (PORCINE) 5000 UNITS/ML VIAL (J1644 PER 1000UNITS) SC SCH ×3 (04:24→20:43)
[2019-10-25] MEDS ORDERED: IPRATROPIUM 0.5MG/ALBUTEROL 2.5MG INH SOL UD 3ML (DUONEB)(J7620) NEB ONE (04:45)
[2019-10-25 06:00] VITALS: BP 118/87
[2019-10-25 06:25] LABS: ALBUMIN 3.3 GM/DL (3.2-5.2); BILIRUBIN,TOTAL 1.8 MG/DL (0.2-1.0); CALCIUM LEVEL 9.1 MG/DL (8.8-10.2); CREATININE FOR GFR 1.52 MG/DL (0.70-1.30); GLOMERULAR FILTRATION RATE 48.4 (>42); MAGNESIUM LEVEL 1.9 MG/DL (1.8-2.4); POTASSIUM SERUM 3.4 MEQ/L (3.5-5.1)
[2019-10-25] MEDS: IPRATROPIUM 0.5MG/ALBUTEROL 2.5MG INH SOL UD 3ML (DUONEB)(J7620) NEB SCH ×2 (07:04→14:08)
[2019-10-25] MEDS: UMECLIDINIUM BROMIDE 62.5 MCG INH SCH (07:37)
[2019-10-25] MEDS ORDERED: TIOTROPIUM INHALER/CAPSULE (SPIRIVA) INH SCH (08:00)
[2019-10-25] MEDS ORDERED: POTASSIUM CHLORIDE 10 MEQ SR TABLET PO ONE (08:30)
[2019-10-25] MEDS: BENZONATATE 100 MG CAP PO SCH ×2 (08:36→20:44)
[2019-10-25] MEDS: HumaLOG INSULIN (NovoLOG) PER UNIT SC SCH ×4 (08:36→20:30)
[2019-10-25] MEDS: FLUTICASONE PROP 0.05% NASAL SPRAY 16 GM (FLONASE) SCH (08:36)
[2019-10-25] MEDS: VITAMIN D 1,000 INTERNATIONAL UNITS TABLET PO SCH (08:36)
[2019-10-25] MEDS: ASPIRIN 81 MG ENTERIC TAB PO SCH (08:36)
[2019-10-25] MEDS: CLOPIDOGREL 75 MG TAB PO SCH (08:36)
[2019-10-25] MEDS: DOCUSATE SODIUM 100 MG CAP PO SCH ×2 (08:36→20:43)
[2019-10-25] MEDS ORDERED: BACTRIM 160MG/800MG DS TAB PO SCH (09:00)
[2019-10-25] MEDS ORDERED: predniSONE 10 MG TAB PO SCH (09:00)
[2019-10-25 13:31] LABS: BASO # 0.1 10^3/uL (0.0-0.2); BASO % 0.4 % (0.0-1.0); EOS # 0.2 10^3/uL (0.0-0.5); EOS % 1.2 % (0.0-3.0); HEMATOCRIT 46.9 % (42.0-52.0); HEMOGLOBIN 15.5 g/dl (13.5-17.5); LYMPH # 1.1 10^3/uL (1.5-5.0); LYMPH % 7.9 % (24.0-44.0); MEAN CORPUSCULAR HEMOGLOBIN 29.2 pg (27.0-33.0); MEAN CORPUSCULAR VOLUME 88.5 fl (80.0-96.0); MONO # 0.6 10^3/uL (0.0-0.8); MONO % 4.7 % (0.0-5.0); NEUTROPHILS # 11.5 10^3/uL (1.5-8.5); NEUTROPHILS % 85.2 % (36.0-66.0); PLATELET COUNT, AUTOMATED 269 10^3/uL (150-450); WHITE BLOOD COUNT 13.5 10^3/uL (4.0-10.0)
[2019-10-25 14:00] VITALS: BP 117/88
[2019-10-25] MEDS ORDERED: predniSONE 10 MG TAB PO ONE (14:00)
--- NOTE | 2019-10-25 14:09 | IPNPDOC ---
Text Note Date of Service The patient was seen on 10/25/19. NOTE Subjective: Patient is a 69-year-old male with a PMHx of Chronic respiratory failure 2/2 COPD and pulmonary fibrosis (uses 4 L [place] oxygen at baseline, cor ticosteroid dependent), Pulmonary HTN, CAD s/p stent x4, Chronic Diastolic CHF, DLP, NIDDM2, who presented to the ER with shortness of breath on exertion and worsening LE swelling for 4 days. Patient was recently hospitalized for CHF exacerbation earlier this month. Patient had followed up with his vat house laborer 4-5 days prior and was advised to reduce the dose of his diuretics by 50% (Regular = Torsemide 40 BID, New = Torsemide 20 BID). Since that point has noted worsening LE edema and SOB. Patient was admitted to the hospitalist service for further evaluation and treatment. Patient was seen and examined at the bedside. Objective: Vitals (See below) General: Lying in bed, appears short of breath, AAOx3 HEENT: NC, AT CVS: Tachycardic, +S1S2 Lungs: Fair air entry b/l, inspiratory crackles noted bilaterally, no wheezing / rhonchi Abdomen: Soft, ND, NT, obese Extremities: 2+ pitting edema at ankles, - Calf tenderness Assessment and plan: Acute on chronic exacerbation of congestive heart failure with preserved ejection fraction - Presented to the emergency room with worsening shortness of breath and lower extremity edema - Patient had reported that he had recently been advised to reduce the dose of his diuretics - Physical reveals lower extremity edema - Significantly elevated BNP - CXR 10/24: Stable appearing chronic changes consistent with pulmonary fibrosis, however, correlate clinically to rule out the possibility of acute disease superimposed on chronic change. - Maintain strict ins/outs, daily weights, fluid restriction of 1500 cc - c/w diuretics; increased dose of Furosemide to 80 IV BID Chronic respiratory failure - likely 2/2 pulmonary fibrosis, COPD, pulmonary hypertension - c/w supplemental oxygen via nasal cannula at 4L (home baseline) - will increase dose of Prednisone by 10mg - c/w inhaled therapy as ordered - will have outpatient follow up with Pulmonology CAD - No chest pain or palpitations - c/w ASA, Plavix and Atorvastatin NIDDM2 - c/w ISS CKD3 - Cr baseline of 1.7 - 1.8 - Cr appears to be better than baseline - Will c/w diuretics DVT prophylaxis - c/w Heparin Disposition: - Anticipate DC within 48 hours VS,Prasannabone, I+O VS, Fishbone, I+O Laboratory Tests 10/24/19 17:50 10/25/19 05:46 10/25/19 13:16 Vital Signs Date Time Temp Pulse Resp B/P (MAP) Pulse Ox O2 Delivery O2 Flow Rate FiO2 10/25/19 09:00 4.0 10/25/19 06:00 96.8 101 20 118/87 (97) 90 Nasal Cannula I&O- Last 24 Hours up to 6 AM 10/25/19 06:00 Intake Total 540 ml Output Total 550 ml Balance -10 ml DALTON BAUTISTA MD Oct 25, 2019 14:09
[2019-10-25] MEDS ORDERED: LEVALBUTEROL 1.25 MG/0.5 ML CONCENTRATE NEB INH PRN (16:45)
[2019-10-25] MEDS: FUROSEMIDE 40 MG/4 ML VIAL (J1940) IV SCH (17:37)
[2019-10-25] MEDS: LEVALBUTEROL 1.25 MG/0.5 ML CONCENTRATE NEB INH SCH (20:04)
[2019-10-25] MEDS: MONTELUKAST 10 MG TAB PO SCH (20:43)
[2019-10-25] MEDS: ATORVASTATIN 20 MG TAB PO SCH (20:43)
[2019-10-25] MEDS: RAMELTEON 8 MG TAB (ROZEREM) PO SCH (20:43)
[2019-10-25 22:00] VITALS: BP 113/84
[2019-10-26] MEDS: HEPARIN SOD (PORCINE) 5000 UNITS/ML VIAL (J1644 PER 1000UNITS) SC SCH ×3 (05:06→20:08)
[2019-10-26 06:00] VITALS: BP 135/93
[2019-10-26 06:20] LABS: CALCIUM LEVEL 8.6 MG/DL (8.8-10.2); CREATININE FOR GFR 1.56 MG/DL (0.70-1.30); GLOMERULAR FILTRATION RATE 46.9 (>42); MAGNESIUM LEVEL 1.9 MG/DL (1.8-2.4); POTASSIUM SERUM 3.2 MEQ/L (3.5-5.1); TOTAL PROTEIN 6.6 GM/DL (6.4-8.2)
[2019-10-26] MEDS: LEVALBUTEROL 1.25 MG/0.5 ML CONCENTRATE NEB INH SCH ×4 (07:21→20:00)
[2019-10-26] MEDS ORDERED: POTASSIUM CHLORIDE 10 MEQ SR TABLET PO ONE ×2 (07:30→10:00)
[2019-10-26 07:45] LABS: BASO # 0.1 10^3/uL (0.0-0.2); BASO % 0.5 % (0.0-1.0); EOS # 0.6 10^3/uL (0.0-0.5); EOS % 4.7 % (0.0-3.0); HEMATOCRIT 44.6 % (42.0-52.0); HEMOGLOBIN 14.4 g/dl (13.5-17.5); LYMPH # 3.5 10^3/uL (1.5-5.0); MEAN CORPUSCULAR HGB CONC 32.3 g/dl (32.0-36.5); MEAN CORPUSCULAR VOLUME 89.7 fl (80.0-96.0); MONO % 7.5 % (0.0-5.0); NEUTROPHILS # 7.8 10^3/uL (1.5-8.5); PLATELET COUNT, AUTOMATED 266 10^3/uL (150-450); RED BLOOD COUNT 4.97 10^6/uL (4.30-6.10)
[2019-10-26] MEDS: HumaLOG INSULIN (NovoLOG) PER UNIT SC SCH ×4 (07:56→21:00)
[2019-10-26] MEDS: DOCUSATE SODIUM 100 MG CAP PO SCH ×2 (08:00→20:09)
[2019-10-26] MEDS: ASPIRIN 81 MG ENTERIC TAB PO SCH (08:00)
[2019-10-26] MEDS: CLOPIDOGREL 75 MG TAB PO SCH (08:00)
[2019-10-26] MEDS: BENZONATATE 100 MG CAP PO SCH ×2 (08:01→20:09)
[2019-10-26] MEDS: VITAMIN D 1,000 INTERNATIONAL UNITS TABLET PO SCH (08:01)
[2019-10-26] MEDS: FLUTICASONE PROP 0.05% NASAL SPRAY 16 GM (FLONASE) SCH (08:01)
[2019-10-26] MEDS: predniSONE 20 MG TAB PO SCH (08:12)
[2019-10-26] MEDS: UMECLIDINIUM BROMIDE 62.5 MCG INH SCH (08:13)
--- NOTE | 2019-10-26 08:39 | ECGEPIP ---
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
--- NOTE | 2019-10-26 11:31 | IPNPDOC ---
Text Note Date of Service The patient was seen on 10/26/19. NOTE Subjective: Patient is a 69-year-old male with a PMHx of Chronic respiratory failure 2/2 COPD and pulmonary fibrosis (uses 4 L [place] oxygen at baseline, cor ticosteroid dependent), Pulmonary HTN, CAD s/p stent x4, Chronic Diastolic CHF, DLP, NIDDM2, who presented to the ER with shortness of breath on exertion and worsening LE swelling for 4 days. Patient was recently hospitalized for CHF exacerbation earlier this month. Patient had followed up with his dry wall installer 4-5 days prior and was advised to reduce the dose of his diuretics by 50% (Regular = Torsemide 40 BID, New = Torsemide 20 BID). Since that point has noted worsening LE edema and SOB. Patient was admitted to the hospitalist service for further evaluation and treatment. Patient was seen and examined at the bedside. . Currently, patient reports that his breathing is doing better than yesterday. He still reports a cough that is worse than his baseline. Denies any chest pain or palpitations. Denies nausea, vomiting, abdominal pain, diarrhea, or urinary discomfort. Does report that his lower extremity swelling has improved. Objective: Vitals (See below) General: Sitting up at the edge of the bed. Denies any significant problems overnight, appears comfortable, AAOx3 HEENT: NC, AT CVS: +S1S2 Lungs: Air entry remains fair bilaterally. There are inspiratory crackles noted bilateral lung bases. No rhonchi or wheezing appreciated Abdomen: Soft, no evidence of distention or tenderness, obese Extremities: 1+ pitting edema noted at ankles, - Calf tenderness Assessment and plan: Acute on chronic exacerbation of congestive heart failure with preserved ejection fraction - Presented to the ER with worsening shortness of breath and lower extremity edema / recently been advised to reduce the dose of his diuretics - Breathing has improved compared to yesterday - Physical with improvement of lower extremity edema - Significantly elevated BNP - CXR 10/24: Stable appearing chronic changes consistent with pulmonary fibrosis, however, correlate clinically to rule out the possibility of acute disease superimposed on chronic change. - Maintain strict ins/outs, daily weights, fluid restriction of 1500 cc - Will continue with current diuretics; anticipate returning to torsemide 40 BID tomorrow Chronic respiratory failure - likely 2/2 pulmonary fibrosis, COPD, pulmonary hypertension - c/w supplemental oxygen via nasal cannula at 4L (home baseline) - c/w adjusted dose of prednisone - c/w inhaled therapy as ordered - will have outpatient follow up with Pulmonology CAD - No chest pain or palpitations - c/w ASA, Plavix and Atorvastatin NIDDM2 - c/w ISS CKD3 - Cr baseline of 1.7 - 1.8 - Cr has remained stable; below baseline - c/w diuretics DVT prophylaxis - c/w Heparin Disposition: - Anticipate DC tomorrow and return to original dosing of Torsemide VS,Fishbone, I+O VS, Fishbone, I+O Laboratory Tests 10/25/19 13:16 10/26/19 05:22 10/26/19 05:24 Vital Signs Date Time Temp Pulse Resp B/P (MAP) Pulse Ox O2 Delivery O2 Flow Rate FiO2 10/26/19 06:00 98.8 89 20 135/93 (107) 91 Nasal Cannula 5.0 I&O- Last 24 Hours up to 6 AM 10/26/19 06:00 Intake Total 1100 ml Output Total 1225 ml Balance -125 ml DALTON BAUTISTA MD Oct 26, 2019 11:31
[2019-10-26] MEDS: guaiFENesin SYRUP 200 MG/10 ML UDC PO PRN (12:40)
[2019-10-26 14:00] VITALS: BP 116/75
[2019-10-26] MEDS: BETAMETHASONE DIP 0.05% OINT 15 GM TOP SCH ×2 (14:36→22:07)
[2019-10-26] MEDS: FUROSEMIDE 40 MG/4 ML VIAL (J1940) IV SCH (17:42)
[2019-10-26 20:01] VITALS: O2SAT 91
[2019-10-26] MEDS: ATORVASTATIN 20 MG TAB PO SCH (20:09)
[2019-10-26] MEDS: RAMELTEON 8 MG TAB (ROZEREM) PO SCH (20:09)
[2019-10-26] MEDS: MONTELUKAST 10 MG TAB PO SCH (20:09)
[2019-10-26 22:00] VITALS: BP 106/86
[2019-10-27] MEDS ORDERED: diphenhydrAMINE 25 MG CAP PO ONE (02:00)
[2019-10-27] MEDS: HEPARIN SOD (PORCINE) 5000 UNITS/ML VIAL (J1644 PER 1000UNITS) SC SCH (05:40)
[2019-10-27 06:00] VITALS: BP 102/82
[2019-10-27 06:11] LABS: BASO # 0.1 10^3/uL (0.0-0.2); BASO % 0.5 % (0.0-1.0); EOS # 0.9 10^3/uL (0.0-0.5); EOS % 7.3 % (0.0-3.0); HEMATOCRIT 44.9 % (42.0-52.0); HEMOGLOBIN 14.4 g/dl (13.5-17.5); LYMPH # 3.1 10^3/uL (1.5-5.0); LYMPH % 26.7 % (24.0-44.0); MEAN CORPUSCULAR HEMOGLOBIN 29.4 pg (27.0-33.0); MEAN CORPUSCULAR HGB CONC 32.1 g/dl (32.0-36.5); MEAN CORPUSCULAR VOLUME 91.6 fl (80.0-96.0); MONO # 0.9 10^3/uL (0.0-0.8); MONO % 7.6 % (0.0-5.0); NEUTROPHILS # 6.8 10^3/uL (1.5-8.5); NEUTROPHILS % 57.5 % (36.0-66.0); PLATELET COUNT, AUTOMATED 244 10^3/uL (150-450); WHITE BLOOD COUNT 11.7 10^3/uL (4.0-10.0)
[2019-10-27 06:47] LABS: ALBUMIN 3.3 GM/DL (3.2-5.2); BILIRUBIN,TOTAL 1.3 MG/DL (0.2-1.0); CALCIUM LEVEL 8.5 MG/DL (8.8-10.2); CREATININE FOR GFR 1.5 MG/DL (0.70-1.30); GLOMERULAR FILTRATION RATE 49.1 (>42); POTASSIUM SERUM 3.9 MEQ/L (3.5-5.1); TOTAL PROTEIN 6.3 GM/DL (6.4-8.2)
[2019-10-27] MEDS: LEVALBUTEROL 1.25 MG/0.5 ML CONCENTRATE NEB INH SCH (07:23)
[2019-10-27 07:24] VITALS: O2SAT 90
[2019-10-27] MEDS: UMECLIDINIUM BROMIDE 62.5 MCG INH SCH (07:30)
[2019-10-27] MEDS: HumaLOG INSULIN (NovoLOG) PER UNIT SC SCH (08:12)
[2019-10-27] MEDS: predniSONE 20 MG TAB PO SCH (08:13)
[2019-10-27] MEDS: DOCUSATE SODIUM 100 MG CAP PO SCH (08:13)
[2019-10-27] MEDS: CLOPIDOGREL 75 MG TAB PO SCH (08:14)
[2019-10-27] MEDS: FLUTICASONE PROP 0.05% NASAL SPRAY 16 GM (FLONASE) SCH (08:14)
[2019-10-27] MEDS: VITAMIN D 1,000 INTERNATIONAL UNITS TABLET PO SCH (08:14)
[2019-10-27] MEDS: ASPIRIN 81 MG ENTERIC TAB PO SCH (08:14)
[2019-10-27] MEDS: BENZONATATE 100 MG CAP PO SCH (08:14)
[2019-10-27] MEDS: BETAMETHASONE DIP 0.05% OINT 15 GM TOP SCH (08:15)
[2019-10-27] MEDS ORDERED: TORS20TA2 PO ×2 (08:35→08:37)
[2019-10-27] MEDS ORDERED: PRED10TA2 PO (08:35)
[2019-10-27] MEDS ORDERED: TORSEMIDE 20 MG TAB PO SCH ×2 (09:00→17:00)
--- NOTE | 2019-10-27 09:18 | DS.PDOC ---
Discharge Summary General Date of Admission Oct 24, 2019 at 20:01 Date of Discharge 10/27/2019 Discharge Summary PROCEDURES PERFORMED DURING STAY: [None]. ADMITTING DIAGNOSES / DISCHARGE DIAGNOSES: Acute on chronic exacerbation of congestive heart failure with preserved ejection fraction Chronic respiratory failure - likely 2/2 pulmonary fibrosis, COPD, pulmonary hypertension CAD NIDDM2 CKD3 Psoriasis DVT prophylaxis COMPLICATIONS/CHIEF COMPLAINT: Shortness of breath HISTORY OF PRESENT ILLNESS: Patient is a 69-year-old male with a PMHx of Chronic respiratory failure 2/2 COPD and pulmonary fibrosis (uses 4 L [place] oxygen at baseline, corticosteroid dependent), Pulmonary HTN, CAD s/p stent x4, Chronic Diastolic CHF, DLP, NIDDM2, who presented to the ER with shortness of breath on exertion and worsening LE swelling for 4 days. Patient was recently hospitalized for CHF exacerbation earlier this month. Patient had followed up with his overcaster 4-5 days prior and was advised to reduce the dose of his diuretics by 50% (Regular = Torsemide 40 BID, New = Torsemide 20 BID). Since that point has noted worsening LE edema and SOB. Patient was admitted to the hospitalist service for further evaluation and treatment. HOSPITAL COURSE: Acute on chronic exacerbation of congestive heart failure with preserved ejection fraction - Presented to the ER with worsening SOB / LE edema / Recently been advised to reduce the dose of his diuretics - Subjectively reports improvement of breathing / swelling - Improvement of fluid overload on physical exam - Significantly elevated BNP - CXR 10/24: Stable appearing chronic changes consistent with pulmonary fibrosis, however, correlate clinically to rule out the possibility of acute disease superimposed on chronic change. - Maintain strict ins/outs, daily weights, fluid restriction of 1500 cc - Will have outpatient follow up with Dr. Person, Dr. Brandt and Niki Ndiaye Chronic respiratory failure - likely 2/2 pulmonary fibrosis, COPD, pulmonary hypertension - c/w supplemental oxygen via nasal cannula at 4L (home baseline); will taper down to baseline level of oxygen - c/w adjusted dose of prednisone - c/w inhaled therapy as ordered - will have outpatient follow up with Pulmonology CAD - No chest pain or palpitations - c/w ASA, Plavix and Atorvastatin NIDDM2 - c/w ISS CKD3 - Cr baseline of 1.7 - 1.8 - Cr has remained unchanged from admission - c/w diuretics DVT prophylaxis - c/w Heparin DISCHARGE MEDICATIONS: Please see below. ALLERGIES: Please see below. PHYSICAL EXAMINATION ON DISCHARGE: Vitals (See below) General: Sitting up eating breakfast, appears comfortable, AAOx3 HEENT: NC, AT CVS: +S1S2 Lungs: There appears to be fair air entry bilaterally. This morning, there does not appear to be any significant crackles - very faint on inspiration, no rhonchi or wheezing Abdomen: Remains soft, but is obese. Nondistended and nontender Extremities: trace pitting edema noted at ankles, - Calf tenderness LABORATORY DATA: Please see below. ACTIVITY: [As tolerated]. DISCHARGE PLAN: Follow up with Dr. Karly Bills and Dr. Person within 7 days Remain compliant with treatment plan and medications Return to the ER if you experience any problems DISPOSITION: Home DISCHARGE CONDITION: [Stable]. TIME SPENT ON DISCHARGE: 35 minutes Vital Signs/I&Os Vital Signs Date Time Temp Pulse Resp B/P (MAP) Pulse Ox O2 Delivery O2 Flow Rate FiO2 10/27/19 07:24 90 Nasal Cannula 5.0 10/27/19 06:00 97.0 90 19 102/82 (89) I&O- Last 24 Hours up to 6 AM 10/27/19 05:59 Intake Total 2840 ml Output Total 1300 ml Balance 1540 ml Laboratory Data Labs 24H Laboratory Tests 2 10/26/19 11:23: Bedside Glucose (Misc Panel) 177H 10/26/19 17:12: Bedside Glucose (Misc Panel) 279H 10/26/19 20:42: Bedside Glucose (Misc Panel) 175H 10/27/19 05:30: Immature Granulocyte % (Auto) 0.4, Neutrophils (%) (Auto) 57.5, Lymphocytes (%) (Auto) 26.7, Monocytes (%) (Auto) 7.6H, Eosinophils (%) (Auto) 7.3H, Basophils (%) (Auto) 0.5, Neutrophils # (Auto) 6.8, Lymphocytes # (Auto) 3.1, Monocytes # (Auto) 0.9H, Eosinophils # (Auto) 0.9H, Basophils # (Auto) 0.1, Nucleated Red Blood Cells % (auto) 0.0, Anion Gap 9, Glomerular Filtration Rate 49.1, Calcium Level 8.5L, Magnesium Level 2.0, Total Bilirubin 1.3H, Aspartate Amino Transf (AST/SGOT) 44H, Alanine Aminotransferase (ALT/SGPT) 78, Alkaline Phosphatase 69, Total Protein 6.3L, Albumin 3.3, Albumin/Globulin Ratio 1.10 CBC/BMP Laboratory Tests 10/27/19 05:30 FSBS Laboratory Tests Test 10/26/19 11:23 10/26/19 17:12 10/26/19 20:42 Range/Units Bedside Glucose (Misc Panel) 177 279 175 83-110 MG/DL Discharge Medications Scheduled Aspirin (Aspirin EC) 81 Mg Tab, 81 MG PO DAILY, (Reported) Atorvastatin Calcium (Atorvastatin Calcium) 40 Mg Tablet, 40 MG PO QHS, (Reported) Benzonatate (Benzonatate) 100 Mg Capsule, 100 MG PO BID, (Reported) Cholecalciferol (Vitamin D3) (Vitamin D3) 1,000 Unit Tablet, 1,000 UNITS PO DAILY, (Reported) Clopidogrel Bisulfate (Clopidogrel) 75 Mg Tablet, 75 MG PO DAILY, (Reported) Fluticasone Propionate (Flonase Allergy Relief) 9.9 Ml [place].susp, 2 SPRAYS NA DAILY, (Reported) Montelukast Sodium (Montelukast Sodium) 10 Mg Tablet, 10 MG PO QHS, (Reported) Prednisone (Prednisone) 10 Mg Tablet, 20 MG PO DAILY Sitagliptin Phos/Metformin HCl (Janumet 50-1,000 mg Tablet) 1 Each Tablet, 1 TAB PO BID, (Reported) Sulfamethoxazole/Trimethoprim (Bactrim Ds Tablet) 1 Each Tablet, 1 TAB PO 3XW, (Reported) MONDAY, MONDAY AND MONDAY Torsemide (Torsemide) 20 Mg Tablet, 20 MG PO ASDIRECTED take 2 tabs in AM, 1 tab in PM Umeclidinium [place] (Incruse Ellipta) 62.5 Mcg Blst.w.dev, 1 PUFF INH DAILY, (Reported) Scheduled PRN Albuterol Sulfate (Proair Hfa) 8.5 Gm Hfa.aer.ad, 2 PUFF INH Q4H PRN for SHORTNESS OF BREATH, (Reported) Allergies Coded Allergies: benazepril (Verified Allergy, Unknown, UNKNOWN REACTION, 10/24/19) shellfish derived (Verified Allergy, Unknown, HIVES, 10/24/19) DALTON BAUTISTA MD Oct 27, 2019 09:18
== END 2019-10-27 11:31 | disposition home or self-care (01) | DRG 291 ==
LOC: M ED 17:34 → EDBD 17:34 → M ED INP 20:01 → ENRESERV 20:18 → M MSPAV 21:32
PROVIDERS: ADMIT Internal Medicine; ATTEND Internal Medicine
DX: I13.0 Hypertensive heart and chronic kidney disease with heart failure and stage 1 through stage 4 chronic kidney disease, or unspecified chronic kidney disease (principal); I50.33 Acute on chronic diastolic (congestive) heart failure; J96.10 Chronic respiratory failure, unspecified whether with hypoxia or hypercapnia; J44.9 Chronic obstructive pulmonary disease, unspecified; J84.10 Pulmonary fibrosis, unspecified; I27.20 Pulmonary hypertension, unspecified; E78.5 Hyperlipidemia, unspecified; I25.10 Atherosclerotic heart disease of native coronary artery without angina pectoris; Z95.5 Presence of coronary angioplasty implant and graft; E11.22 Type 2 diabetes mellitus with diabetic chronic kidney disease; Z87.891 Personal history of nicotine dependence; Z99.81 Dependence on supplemental oxygen; N18.3 Chronic kidney disease, stage 3 (moderate); Z79.82 Long term (current) use of aspirin; Z79.52 Long term (current) use of systemic steroids; Z79.899 Other long term (current) drug therapy; Z88.8 Allergy status to other drugs, medicaments and biological substances; Z91.013 Allergy to seafood; Z77.090 Contact with and (suspected) exposure to asbestos; L40.9 Psoriasis, unspecified

== ENCOUNTER 2019-11-22 06:30 | Inpatient (IN) | payer MEDICARE, MEDICAID ==
[~2019-11-22] VITALS: Ht 172.7 cm; Wt 98.5 kg
[~2019-11-22 06:30] MED LIST changes: +PRED10PA2 PO; +PRED10TA2 PO
[2019-11-22] MEDS ORDERED: OXYMETAZOLINE NASAL SPRAY (AFRIN) ONE (06:45)
[2019-11-22 07:14] LABS: BASO # 0.1 10^3/uL (0.0-0.2); BASO % 0.6 % (0.0-1.0); EOS # 0.5 10^3/uL (0.0-0.5); EOS % 2.8 % (0.0-3.0); HEMATOCRIT 47.7 % (42.0-52.0); HEMOGLOBIN 15.4 g/dl (13.5-17.5); MEAN CORPUSCULAR HEMOGLOBIN 29.6 pg (27.0-33.0); MEAN CORPUSCULAR HGB CONC 32.3 g/dl (32.0-36.5); MEAN CORPUSCULAR VOLUME 91.7 fl (80.0-96.0); MONO # 1.3 10^3/uL (0.0-0.8); NEUTROPHILS # 10.7 10^3/uL (1.5-8.5); NEUTROPHILS % 64.1 % (36.0-66.0); PLATELET COUNT, AUTOMATED 195 10^3/uL (150-450); WHITE BLOOD COUNT 16.7 10^3/uL (4.0-10.0)
[2019-11-22 07:24] LABS: INR 1.19; PROTHROMBIN TIME 14.8 SECONDS (11.8-14.0)
[2019-11-22 07:25] LABS: PARTIAL THROMBOPLASTIN TIME 27.5 SECONDS (25.0-38.4)
[2019-11-22 07:39] LABS: CALCIUM LEVEL 9.3 MG/DL (8.8-10.2); CREATININE FOR GFR 1.7 MG/DL (0.70-1.30); GLOMERULAR FILTRATION RATE 42.5 (>42); POTASSIUM SERUM 3.6 MEQ/L (3.5-5.1)
[2019-11-22] MEDS ORDERED: FAMO40TA3 PO (08:04)
[2019-11-22] MEDS ORDERED: ALB2.5NEB INH (08:04)
[2019-11-22] MEDS ORDERED: COLA100C5 PO (08:04)
[2019-11-22] MEDS ORDERED: TORS20TA2 PO ×2 (08:05)
[2019-11-22] MEDS ORDERED: ACETAMINOPHEN 500 MG TAB PO ONE (08:15)
[2019-11-22] MEDS ORDERED: FAMOTIDINE 20 MG TAB PO PRN (10:00)
[2019-11-22] MEDS ORDERED: ALBUTEROL 90 MCG/ACT 8GM HFA INHALER INH PRN (10:00)
[2019-11-22] MEDS: ASPIRIN 81 MG ENTERIC TAB PO SCH (10:42)
[2019-11-22] MEDS: TORSEMIDE 20 MG TAB PO SCH ×2 (10:42→17:12)
[2019-11-22] MEDS: VITAMIN D 1,000 INTERNATIONAL UNITS TABLET PO SCH (10:42)
[2019-11-22] MEDS: CLOPIDOGREL 75 MG TAB PO SCH (10:43)
[2019-11-22] MEDS: BACTRIM 160MG/800MG DS TAB PO SCH (10:43)
[2019-11-22] MEDS: FLUTICASONE PROP 0.05% NASAL SPRAY 16 GM (FLONASE) SCH (10:44)
[2019-11-22 12:00] VITALS: BP 147/91
[2019-11-22] MEDS: ALBUTEROL SULFATE 2.5 MG/0.5 ML INH NEB SOLN INH SCH ×3 (12:00→19:31)
[2019-11-22] MEDS: TIOTROPIUM INHALER/CAPSULE (SPIRIVA) INH SCH (12:19)
[2019-11-22] MEDS ORDERED: traMADol 50 MG TAB PO ONE (12:30)
[2019-11-22] MEDS ORDERED: SLF 3 ML SYR IV PRN (13:00)
[2019-11-22] MEDS ORDERED: oxyCODONE 5MG TAB PO ONE (14:45)
[2019-11-22] MEDS: SLF 3 ML SYR IV SCH ×2 (14:59→20:10)
[2019-11-22] MEDS: BENZONATATE 100 MG CAP PO SCH ×2 (14:59→20:09)
[2019-11-22] MEDS: predniSONE 20 MG TAB PO SCH (17:12)
--- NOTE | 2019-11-22 17:44 | HPEPDOC ---
General Date of Admission Nov 22, 2019 at 06:31 Date of Service: Nov 22, 2019 Attending Physician: JACQUI PEREZ MD Chief Complaint The patient is a 69-year-old male admitted with a reason for visit of Acute And Chronic Respiratory Failure. Source: Patient Exam Limitations: No limitations Timing/Duration: 4-6 hours Severity: Severe Associated Symptoms: Other (epistaxis) History of Present Illness 69-year-old M with COPD and pulmonary fibrosis on chronic 4L, pulmonary hypertension, hyperlipidemia, CHF, coronary artery disease s/p 4 stents, mostly recent PCI was 4 months ago on ASA/plavix, DM who presented with persistent epistaxis reporting recent mild epistaxis that he was able to stop with hemostasis at home. Upon ER evaluation, he had significant R nostril epistaxis and ED team performed hemostasis with packing to right nostril while blood was also noted to left nostril without active bleeding. He was otherwise hemodynamically stable, reporting severe pain in his nostril and sinuses. He was hypoxemic and placed on NRB and quickly de-escalated to a venturi mask after hemostasis was achieved. He reports no prior issues with his ASA/plavix, is on 4L NC at baseline at rest and recently dealing with dry nose with use of sprays. He otherwise denied trauma though he had recent small short lived episodes of epistaxis. In the ED, he was hemodynamically stable with acute on chronic hypoxemia as noted above. Work up after hemostasis was achieved showed WBC 16.7, hgb 15.5, platelets 195, baseline Cr of 1.7, INR of 1.19 with normal PTT. ENT was consulted in the ED and recommended continued hemostasis and expectant observation. He is now being admitted to PCU for observation. Home Medications Scheduled Albuterol Sulfate (Albuterol Sulfate) 2.5 Mg/0.5 Ml Vial.neb, 2.5 MG INH TID, (Reported) Aspirin (Aspirin EC) 81 Mg Tab, 81 MG PO DAILY, (Reported) Atorvastatin Calcium (Atorvastatin Calcium) 40 Mg Tablet, 40 MG PO QHS, (Reported) Benzonatate (Benzonatate) 100 Mg Capsule, 100 MG PO BID, (Reported) Cholecalciferol (Vitamin D3) (Vitamin D3) 1,000 Unit Tablet, 1,000 UNITS PO DAILY, (Reported) Clopidogrel Bisulfate (Clopidogrel) 75 Mg Tablet, 75 MG PO DAILY, (Reported) Fluticasone Propionate (Flonase Allergy Relief) 9.9 Ml [place].susp, 2 SPRAYS NA DAILY, (Reported) Montelukast Sodium (Montelukast Sodium) 10 Mg Tablet, 10 MG PO QHS, (Reported) Sitagliptin Phos/Metformin HCl (Janumet 50-1,000 mg Tablet) 1 Each Tablet, 1 TAB PO BID, (Reported) Sulfamethoxazole/Trimethoprim (Bactrim Ds Tablet) 1 Each Tablet, 1 TAB PO 3XW, (Reported) MONDAY, MONDAY AND MONDAY Torsemide (Torsemide) 20 Mg Tablet, 40 MG PO QAM, (Reported) Torsemide (Torsemide) 20 Mg Tablet, 20 MG PO QPM, (Reported) TAKES AT 1800 Umeclidinium [place] (Incruse Ellipta) 62.5 Mcg Blst.w.dev, 1 PUFF INH DAILY, (Reported) Scheduled PRN Albuterol Sulfate (Proair Hfa) 8.5 Gm Hfa.aer.ad, 2 PUFF INH Q4H PRN for SHORTNESS OF BREATH, (Reported) Docusate Sodium (Colace) 100 Mg Capsule, 100 MG PO BID PRN for CONSTIPATION, (Reported) Famotidine (Famotidine) 40 Mg Tablet, 40 MG PO DAILY PRN for HEARTBURN, (Report ed) Allergies Coded Allergies: shellfish derived (Verified Allergy, Intermediate, HIVES, 11/22/19) benazepril (Verified Allergy, Unknown, UNKNOWN REACTION, 10/24/19) Past Medical History Medical History COPD, pulmonary fibrosis, pulmonary hypertension, hyperlipidemia, CHF, coronary artery disease, diabetes Surgical History 4 stents placed in the heart with last stent being placed for months prior Family History Diabetes, Heart disease, CHF, COPD Social History * Smoker: former Smoker Alcohol: occationally Drugs: denies Recent Travel/Sick Contacts: Denies: Recent travel, Recent sick contacts Has a 60+-pack-year smoking history, quit approximately 15 years ago Occasional alcohol Denies illicit drugs A-FIB/CHADSVASC A-FIB History Current/History of A-Fib/PAF?: No Current PO Anticoag Therapy: No Age/Risk Factor Scoring CHADSVASC: CHADSVASC Response (Comments) Value Age Risk Factor Age 65-74 years old 1 Gender Risk Factor Male 0 Hx of CHF Yes 1 Hx of HTN Yes 1 Hx of Stroke/TIA/or VTE No 0 Hx of Diabetes Yes 1 Hx of Vascular Disease Yes 1 Total 5 Treatment Treatment ordered: NONE Reason Anticoagulant not given: Not indicated/[id number] Review of Systems Constitutional: Denies: Chills, Fever, Night Sweats Eyes: Denies: Pain, Vision change ENT: Reports: Head Aches, Epistaxis; Denies: Post Nasal Drip, Sore Throat Skin: Denies: Rash, Lesions, Breakdown Pulmonary: Reports: Dyspnea (after he started having significant nose bleeding, otherwise was at his baseline SOB prior); Denies: Cough Cardiovascular: Denies: Chest Pain, Palpitations, Orthopnea, Paroxysmal Noc. Dyspnea, Lt Headedness Gastrointestinal: Denies: Nausea, Vomiting, Abdominal Pain, Diarrhea Genitourinary: Denies: Dysuria, Frequency, Incontinence, Retention Hematologic: Reports: Bleeding Excessively (recent mild R nosebleeding until today); Denies: Bruising Endocrine: Denies: Polydipsia, Polyphagia, Polyuria, Heat Intolerance, Cold Intolerance, Other Endocrine Sx Musculoskeletal: Denies: Neck Pain, Back Pain, Joint Pain, Muscle Pain, Spasms Neurological: Denies: Weakness, Numbness, Change in speech, Confusion Psych: Reports: Mood Normal; Denies: Depression, Memory Issues Physical Examination General Exam: Positive: Alert, Mild Distress, Other (obese) Eye Exam: Positive: PERRLA, Conjunctiva & lids normal, EOMI; Negative: Sclera icteric ENT Exam: Positive: Mucous membr. moist/pink, Pharynx Normal, Tongue Midline; Negative: Atraumatic, Pharyngeal Edema, Nares Patent (R with inflated balloon for packing, L with wet blood, dry blood on face) Neck Exam: Positive: Supple; Negative: JVD, Lymphadenopathy Chest Exam: Positive: Clear to auscultation, Normal air movement, Rales (bibasilar dry crackles), Wheezing (scattered expiratory wheezing); Negative: Rhonchi Heart Exam: Positive: Rate Normal, Regular Rhythm, Normal S1, Normal S2; Negative: Murmurs Abdomen Exam: Positive: Normal bowel sounds, Soft, Other (obese); Negative: Tenderness Extremity Exam: Positive: Edema (2+ pedal edema, at his baseline per patient), Normal pulses; Negative: Tenderness Skin Exam: Positive: Nl turgor and temperature; Negative: Breakdown, Lesion Neuro Exam: Positive: Normal Gait, Normal Speech, Strength at 5/5 X4 ext, Cranial Nerves 3-12 NL Psych Exam: Positive: Mental status NL, Oriented x 3 Vital Signs Vital Signs Date Time Temp Pulse Resp B/P (MAP) Pulse Ox O2 Delivery O2 Flow Rate FiO2 11/22/19 16:00 96.8 58 17 89 Venturi Mask 12.0 35 11/22/19 12:00 147/91 (109) Laboratory Data Labs 24H Laboratory Tests 2 11/22/19 06:59: Immature Granulocyte % (Auto) 0.5, Neutrophils (%) (Auto) 64.1, Lymphocytes (%) (Auto) 24.0, Monocytes (%) (Auto) 8.0H, Eosinophils (%) (Auto) 2.8, Basophils (%) (Auto) 0.6, Neutrophils # (Auto) 10.7H, Lymphocytes # (Auto) 4.0, Monocytes # (Auto) 1.3H, Eosinophils # (Auto) 0.5, Basophils # (Auto) 0.1, Nucleated Red Blood Cells % (auto) 0.0, Anion Gap 13, Glomerular Filtration Rate 42.5, Calcium Level 9.3 11/22/19 07:00: Prothrombin Time 14.8H, Prothromb Time International Ratio 1.19, Activated Partial Thromboplast Time 27.5 11/22/19 12:44: Bedside Glucose (Misc Panel) 167H CBC/BMP Laboratory Tests 11/22/19 06:59 Assessment/Plan Epistaxis: likely 2/2 dry nasal mucosa, on O2, possible trauma -s/p hemostasis wiith 7.5 rhinoblast, usually ket for 48h before dc per ED provider -will check in with ENT in the AM -has multiple cardiac stents and some are recent as a few months, so will choose to continue ASA/plavix only if epistaxis becomes persistent because the cardiac risk is high -currently on ventimask Chronic HFpEF: compensated - continue home dose of diuretics - Daily weights and strict I's and O's - 1500 mL fluid restriction - Supplemental oxygen as needed to maintain saturation between 88-92% - Telemetry monitoring Chronic respiratory failure due to pulmonary fibrosis, COPD, pulmonary hypertension on 4 L of nasal cannula at home. - maintain saturation between 88 and 92% - Continue home duonebs BID - Substitute umeclidinium with spiriva - Continue with prednisone 20 mg daily, was previously on 10mg but recently increased by Dr. Person - Continue albuterol inhaler PRN - Continue montelukast - PT/OT CAD s/p 4 stents - continue with his aspirin, Plavix, statin - monitor epistaxis carefully, if persistent will have to hold antiplatelet agents Type 2 diabetes - Hold home oral meds - sliding scale -FSBG AC/HS -hypoglycemic protocol CKD: Currently stable, renal function is close to baseline. - Will monitor renal function for now - Avoid nephrotoxin medications adjust medications for reduced GFR - Daily BMP DVT ppx: TEDs and SCDs Diet: consistent carb and 2g sodium Dispo: PCU Plan / VTE VTE Prophylaxis Ordered?: Yes JACQUI PEREZ MD Nov 22, 2019 17:44
[2019-11-22] MEDS: oxyCODONE 5MG TAB PO PRN ×2 (18:19→22:14)
[2019-11-22 19:27] VITALS: O2SAT 92
[2019-11-22 20:00] VITALS: BP 119/86
[2019-11-22] MEDS: MONTELUKAST 10 MG TAB PO SCH (20:09)
[2019-11-22] MEDS: ATORVASTATIN 20 MG TAB PO SCH (20:09)
[2019-11-22] MEDS: ACETAMINOPHEN TAB 650MG DOSE (2X325MG) PO PRN (22:36)
[2019-11-23] VITALS (8 sets, daily range): BP systolic 123–160; BP diastolic 87–98; O2SAT 93–94
[2019-11-23] MEDS: oxyCODONE 5MG TAB PO PRN ×5 (02:22→20:04)
[2019-11-23 02:58] LABS: HEMATOCRIT 44.5 % (42.0-52.0); HEMOGLOBIN 14.4 g/dl (13.5-17.5); MEAN CORPUSCULAR HEMOGLOBIN 29.3 pg (27.0-33.0); MEAN CORPUSCULAR HGB CONC 32.4 g/dl (32.0-36.5); MEAN CORPUSCULAR VOLUME 90.6 fl (80.0-96.0); PLATELET COUNT, AUTOMATED 188 10^3/uL (150-450); RED BLOOD COUNT 4.91 10^6/uL (4.30-6.10); WHITE BLOOD COUNT 19.9 10^3/uL (4.0-10.0)
[2019-11-23 03:24] LABS: CALCIUM LEVEL 8.5 MG/DL (8.8-10.2); CREATININE FOR GFR 1.54 MG/DL (0.70-1.30); GLOMERULAR FILTRATION RATE 47.6 (>42); MAGNESIUM LEVEL 1.8 MG/DL (1.8-2.4); POTASSIUM SERUM 3.7 MEQ/L (3.5-5.1)
[2019-11-23] MEDS: SLF 3 ML SYR IV SCH ×3 (04:35→20:04)
[2019-11-23] MEDS: TORSEMIDE 20 MG TAB PO SCH ×2 (06:13→16:08)
[2019-11-23] MEDS: TIOTROPIUM INHALER/CAPSULE (SPIRIVA) INH SCH (07:50)
[2019-11-23] MEDS: ALBUTEROL SULFATE 2.5 MG/0.5 ML INH NEB SOLN INH SCH ×3 (07:51→20:49)
[2019-11-23] MEDS: CLOPIDOGREL 75 MG TAB PO SCH (08:04)
[2019-11-23] MEDS: ASPIRIN 81 MG ENTERIC TAB PO SCH (08:04)
[2019-11-23] MEDS: predniSONE 20 MG TAB PO SCH (08:04)
[2019-11-23] MEDS: VITAMIN D 1,000 INTERNATIONAL UNITS TABLET PO SCH (08:04)
[2019-11-23] MEDS: FLUTICASONE PROP 0.05% NASAL SPRAY 16 GM (FLONASE) SCH (08:05)
[2019-11-23] MEDS: BENZONATATE 100 MG CAP PO SCH ×2 (08:05→20:03)
[2019-11-23] MEDS ORDERED: ENTER DRUG NAME HERE (PATIENT'S OWN MED) INH SCH (09:00)
--- NOTE | 2019-11-23 12:22 | IPNPDOC ---
Text Note Date of Service The patient was seen on 11/23/19. NOTE Subjective: -No issues overnight -Rhinoblast in place with no more bleeding noted -Stable O2 requirements, afebrile -Headache much better controlled with the PRN oxycodone Objective: Vitals: see below. Hemodynamically stable, afebrile General: Obese, NAD Eyes: Anicteric, non injected, PERRLA, EOMI ENT: R nare with rhinoblast in place, L nare patent, no active bleeding Neck: Thick, supple, no adenopathy, trachea midline Chest: Normal air movement, bibasilar dry crackles, scattered rare expiratory wheezing, no rhonchi, with venti mask on Heart: Rate Normal, Regular Rhythm, Normal S1, Normal S2, no noted murmurs Abdomen: Obese, normal bowel sounds, soft,, NTND Extremity2+ pedal edema, WWP, 2+ DP pulses, no tenderness Skin: normal turgor and temperature no breakdown or lesion, area around nares with some dry blood Neuro: Normal Speech, Strength at 5/5 X4 ext, Cranial Nerves 3-12 NL Psych: Mental status NL, Oriented x 3 Labs: WBC 19.9 Hgb 14.4 platelets 188 na 139 K 3.7 Cr 1.54 BUN 31 mag 1.8 Assessment: Epistaxis: likely 2/2 dry nasal mucosa while on home O2, possible trauma -s/p hemostasis with 7.5 rhinoblast on 11/21, usually kept in for 48h before dc per ED provider, will check in with ENT about removal time -has multiple cardiac stents and some are recent as a few months, so will choose to continue ASA/plavix and hold only if epistaxis becomes persistent because the cardiac risk is high -currently on ventimask with stable O2 requirements Chronic HFpEF: compensated - continue home doses of diuretics - Daily weights and strict I's and O's - 1500 mL fluid restriction - Supplemental oxygen as needed to maintain saturation between 88-92% - Telemetry monitoring Chronic respiratory failure due to pulmonary fibrosis, COPD, pulmonary hypertension on 4 L of nasal cannula at home. - maintain saturation between 88 and 92% - Continue home duonebs BID - Substitute umeclidinium with spiriva - Continue with prednisone 20 mg daily, was previously on 10mg but recently increased by Dr. Person - Continue albuterol inhaler PRN - Continue montelukast CAD s/p 4 stents - continue with his aspirin, Plavix, statin - monitor epistaxis carefully, if persistent will consider holding antiplatelet agents Type 2 diabetes - continue holding home oral meds - sliding scale - FSBG AC/HS - hypoglycemic protocol CKD: Currently stable, renal function at baseline. - Will monitor renal function for now - Avoid nephrotoxin medications adjust medications for reduced GFR - Daily BMP DVT ppx: TEDs and SCDs Diet: consistent carb and 2g sodium Dispo: PCU. Likely discharge home tomorrow vs. later today if rhinoblast is discontinued without further bleeding per ENT. VS,Fishbone, I+O VS, Fishbone, I+O Laboratory Tests 11/23/19 02:50 Vital Signs Date Time Temp Pulse Resp B/P (MAP) Pulse Ox O2 Delivery O2 Flow Rate FiO2 11/23/19 06:43 20 11/23/19 04:00 12.0 35 11/23/19 04:00 96.6 82 142/87 (105) 91 Venturi Mask I&O- Last 24 Hours up to 6 AM 11/23/19 06:00 Intake Total 1650 ml Output Total 1450 ml Balance 200 ml JACQUI PEREZ MD Nov 23, 2019 07:28
[2019-11-23] MEDS: ATORVASTATIN 20 MG TAB PO SCH (20:03)
[2019-11-23] MEDS: MONTELUKAST 10 MG TAB PO SCH (20:03)
[2019-11-24] VITALS: BP 128/77
[2019-11-24 04:00] VITALS: BP 144/96
[2019-11-24] MEDS: TORSEMIDE 20 MG TAB PO SCH ×2 (05:18→17:11)
[2019-11-24] MEDS: ACETAMINOPHEN TAB 650MG DOSE (2X325MG) PO PRN ×2 (05:19→18:13)
[2019-11-24] MEDS: SLF 3 ML SYR IV SCH ×3 (06:00→19:51)
[2019-11-24] MEDS: TIOTROPIUM INHALER/CAPSULE (SPIRIVA) INH SCH (07:27)
[2019-11-24] MEDS: ALBUTEROL SULFATE 2.5 MG/0.5 ML INH NEB SOLN INH SCH ×3 (07:27→19:30)
[2019-11-24 07:29] VITALS: O2SAT 92
[2019-11-24] MEDS: BENZONATATE 100 MG CAP PO SCH ×2 (08:08→19:50)
[2019-11-24] MEDS: predniSONE 20 MG TAB PO SCH (08:08)
[2019-11-24] MEDS: VITAMIN D 1,000 INTERNATIONAL UNITS TABLET PO SCH (08:08)
[2019-11-24] MEDS: ASPIRIN 81 MG ENTERIC TAB PO SCH (08:09)
[2019-11-24] MEDS: CLOPIDOGREL 75 MG TAB PO SCH (08:09)
[2019-11-24] MEDS: FLUTICASONE PROP 0.05% NASAL SPRAY 16 GM (FLONASE) SCH (09:00)
[2019-11-24 12:00] VITALS: BP 140/85
--- NOTE | 2019-11-24 13:11 | IPNPDOC ---
Text Note Date of Service The patient was seen on 11/24/19. NOTE Subjective: -No issues overnight -Stable O2 requirements, afebrile -Headache much better -just removed his rhinorocket Objective: Vitals: see below. Hemodynamically stable, afebrile General: Obese, NAD Eyes: Anicteric, non injected, PERRLA, EOMI ENT: R nare with mild blood on gauze, just placed small cotton ball for hemostasis, L nare patent, no active bleeding Neck: Thick, supple, no adenopathy, trachea midline Chest: Normal air movement, bibasilar dry crackles, scattered rare expiratory wheezing, no rhonchi, with aerosol mask on Heart: Rate Normal, Regular Rhythm, Normal S1, Normal S2, no noted murmurs Abdomen: Obese, normal bowel sounds, soft,, NTND Extremity2+ pedal edema, WWP, 2+ DP pulses, no tenderness Skin: normal turgor and temperature no breakdown or lesion, area around nares with some dry blood Neuro: Normal Speech, Strength at 5/5 X4 ext, Cranial Nerves 3-12 NL Psych: Mental status NL, Oriented x 3 Labs: no labs this AM Epistaxis: likely 2/2 dry nasal mucosa while on home O2, possible trauma -s/p hemostasis with 7.5 rhinoblast on 11/21, just removed it, will watch for an hour and decided on home discharge vs. replacement if bleeding worsens -has multiple cardiac stents and some are recent as a few months, so will choose to continue ASA/plavix and hold only if epistaxis becomes persistent because the cardiac risk is high -currently on aerosol mask with stable O2 requirements Chronic HFpEF: compensated - continue home doses of diuretics - Daily weights and strict I's and O's - 1500 mL fluid restriction - Supplemental oxygen as needed to maintain saturation between 88-92% - Telemetry monitoring Chronic respiratory failure due to pulmonary fibrosis, COPD, pulmonary hypertension on 4 L of nasal cannula at home. - maintain saturation between 88 and 92% - Continue home duonebs BID - Substitute umeclidinium with spiriva - Continue with prednisone 20 mg daily, was previously on 10mg but recently increased by Dr. Person - Continue albuterol inhaler PRN - Continue montelukast CAD s/p 4 stents - continue with his aspirin, Plavix, statin - monitor epistaxis carefully, if persistent will consider holding antiplatelet agents Type 2 diabetes - continue holding home oral meds - sliding scale - FSBG AC/HS - hypoglycemic protocol CKD: Currently stable, renal function at baseline. - Will monitor renal function for now - Avoid nephrotoxin medications adjust medications for reduced GFR - Daily BMP DVT ppx: TEDs and SCDs Diet: consistent carb and 2g sodium Dispo: PCU. Likely discharge later today if no more bleeding now that I took out the rhinorocket vs. tomorrow if I have to replace it for more bleeding. No ENT available today. VS,Fishbone, I+O VS, Fishbone, I+O Vital Signs Date Time Temp Pulse Resp B/P (MAP) Pulse Ox O2 Delivery O2 Flow Rate FiO2 11/24/19 12:00 96.8 64 19 140/85 (103) 91 Tent/Mejia 12.0 35 I&O- Last 24 Hours up to 6 AM 11/24/19 06:00 Intake Total 1290 ml Output Total 2250 ml Balance -960 ml JACQUI PEREZ MD Nov 24, 2019 13:11
[2019-11-24 16:00] VITALS: BP 141/88
[2019-11-24] MEDS ORDERED: TRANEXAMIC ACID 100 MG/ML 10ML VIAL ONE (17:00)
[2019-11-24] MEDS: ATORVASTATIN 20 MG TAB PO SCH (19:49)
[2019-11-24] MEDS: oxyCODONE 5MG TAB PO PRN (19:50)
[2019-11-24] MEDS: MONTELUKAST 10 MG TAB PO SCH (19:50)
[2019-11-24 20:00] VITALS: BP 126/94
[2019-11-25] VITALS (8 sets, daily range): BP systolic 114–134; BP diastolic 77–97; O2SAT 92
[2019-11-25] MEDS: RAMELTEON 8 MG TAB (ROZEREM) PO SCH ×2 (01:48→20:24)
[2019-11-25] MEDS: SLF 3 ML SYR IV SCH ×3 (05:06→20:25)
[2019-11-25 05:13] LABS: BASO # 0.1 10^3/uL (0.0-0.2); BASO % 0.4 % (0.0-1.0); EOS # 0.4 10^3/uL (0.0-0.5); HEMATOCRIT 41.8 % (42.0-52.0); HEMOGLOBIN 13.7 g/dl (13.5-17.5); LYMPH # 2.7 10^3/uL (1.5-5.0); LYMPH % 14.9 % (24.0-44.0); MEAN CORPUSCULAR HEMOGLOBIN 30.2 pg (27.0-33.0); MEAN CORPUSCULAR HGB CONC 32.8 g/dl (32.0-36.5); MEAN CORPUSCULAR VOLUME 92.1 fl (80.0-96.0); MONO # 1.6 10^3/uL (0.0-0.8); MONO % 8.5 % (0.0-5.0); NEUTROPHILS # 13.6 10^3/uL (1.5-8.5); NEUTROPHILS % 73.7 % (36.0-66.0); PLATELET COUNT, AUTOMATED 175 10^3/uL (150-450); RED BLOOD COUNT 4.54 10^6/uL (4.30-6.10); WHITE BLOOD COUNT 18.4 10^3/uL (4.0-10.0)
[2019-11-25 05:31] LABS: CALCIUM LEVEL 7.9 MG/DL (8.8-10.2); CREATININE FOR GFR 1.4 MG/DL (0.70-1.30); GLOMERULAR FILTRATION RATE 53.2 (>42); POTASSIUM SERUM 3.1 MEQ/L (3.5-5.1)
[2019-11-25] MEDS: TORSEMIDE 20 MG TAB PO SCH ×2 (07:23→17:22)
[2019-11-25 07:46] LABS: MAGNESIUM LEVEL 2.2 MG/DL (1.8-2.4)
[2019-11-25] MEDS: TIOTROPIUM INHALER/CAPSULE (SPIRIVA) INH SCH (08:01)
[2019-11-25] MEDS: ALBUTEROL SULFATE 2.5 MG/0.5 ML INH NEB SOLN INH SCH ×4 (08:01→22:32)
[2019-11-25] MEDS: CLOPIDOGREL 75 MG TAB PO SCH (08:05)
[2019-11-25] MEDS: VITAMIN D 1,000 INTERNATIONAL UNITS TABLET PO SCH (08:05)
[2019-11-25] MEDS: BENZONATATE 100 MG CAP PO SCH ×2 (08:05→20:25)
[2019-11-25] MEDS: BACTRIM 160MG/800MG DS TAB PO SCH (08:05)
[2019-11-25] MEDS: ASPIRIN 81 MG ENTERIC TAB PO SCH (08:05)
[2019-11-25] MEDS: predniSONE 20 MG TAB PO SCH (08:05)
[2019-11-25] MEDS: POTASSIUM CHLORIDE 10 MEQ SR TABLET PO SCH ×2 (08:06→20:24)
[2019-11-25] MEDS: FLUTICASONE PROP 0.05% NASAL SPRAY 16 GM (FLONASE) SCH (09:00)
[2019-11-25] MEDS: DOCUSATE SODIUM 100 MG CAP PO PRN (10:38)
--- NOTE | 2019-11-25 12:46 | IPNPDOC ---
Text Note Date of Service The patient was seen on 11/25/19. NOTE Subjective: -Yesterday afternoon took off rhinorocket c/b continued bleeding, so we replaced it. There was no ENT coverage so will call them today about management. Continued him on ASA/plavix given the 4 cardiac stent with 2 of them being recent. -No issues overnight -Stable O2 requirements, afebrile Objective: Vitals: see below. Hemodynamically stable, afebrile General: Obese, NAD Eyes: Anicteric, non injected, PERRLA, EOMI ENT: R nare with rhinorocket in place, L nare patent, no active bleeding Neck: Thick, supple, no adenopathy, trachea midline Chest: Normal air movement, bibasilar dry crackles, scattered rare expiratory wheezing, no rhonchi, with aerosol mask on, breathing comfortably Heart: Rate Normal, Regular Rhythm, Normal S1, Normal S2, no noted murmurs Abdomen: Obese, normal bowel sounds, soft,, NTND Extremity2+ pedal edema, WWP, 2+ DP pulses, no tenderness Skin: normal turgor and temperature no breakdown or lesion, area around nares with some dry blood Neuro: Normal Speech, Strength at 5/5 X4 ext, Cranial Nerves 3-12 NL Psych: Mental status NL, Oriented x 3 Labs: reviewed. hgb 13.7 K 3.1 (repleted) Epistaxis: likely 2/2 dry nasal mucosa while on home O2, possible trauma -s/p hemostasis with 7.5 rhinoblast on 11/21, removed and replaced 11/23 for persistent bleeding -ENT consulted, Dr. Seymour Abraham in the ED, reached out this weekend but told that he was actually not covering and there was no coverage this weekend, so this AM reached out to Dr. Reardon who is listed as instructional systems designer today 11/[address] he confirmed that Dr. Abraham who is currently in the OR will see him today. -has multiple cardiac stents and some are recent as a few months, unclear if bare metal vs. ANNA, so will choose to continue ASA/plavix and hold only if epistaxis is copious or recommended by ENT because the cardiac risk is high -currently on aerosol mask with stable O2 requirements Chronic HFpEF: compensated - continue home doses of diuretics - Daily weights and strict I's and O's - 1500 mL fluid restriction - Supplemental oxygen as needed to maintain saturation between 88-92% - Telemetry monitoring Chronic respiratory failure due to pulmonary fibrosis, COPD, pulmonary hypertension on 4 L of nasal cannula at home. - maintain saturation between 88 and 92% - Continue home duonebs BID - Substitute umeclidinium with spiriva - Continue with prednisone 20 mg daily, was previously on 10mg but recently increased by Dr. Person. Is on ppx bactrim for PCP ppx. - Continue albuterol inhaler PRN - Continue montelukast CAD s/p 4 stents - continue with his aspirin, Plavix, statin - monitor epistaxis carefully, if copious with significant H/H drop or per recommendation of ENT will consider holding antiplatelet agents Type 2 diabetes - continue holding home oral meds - sliding scale - FSBG AC/HS - hypoglycemic protocol CKD: Currently stable, renal function at baseline. - Will monitor renal function for now - Avoid nephrotoxin medications adjust medications for reduced GFR - Daily BMP DVT ppx: TEDs and SCDs Diet: consistent carb and 2g sodium Dispo: PCU. Pending ENT evaluation VS,Shireen, I+O VS, Shireen, I+O Laboratory Tests 11/24/19 21:28 11/25/19 04:20 Vital Signs Date Time Temp Pulse Resp B/P (MAP) Pulse Ox O2 Delivery O2 Flow Rate FiO2 11/25/19 04:00 12.0 35 11/25/19 04:00 96.6 106 19 130/90 (103) 85 Tent/Mejia I&O- Last 24 Hours up to 6 AM 11/25/19 06:00 Intake Total 1800 ml Output Total 2250 ml Balance -450 ml JACQUI PEREZ MD Nov 25, 2019 07:36
[2019-11-25] MEDS: MIRALAX *UNIT DOSE* 17GM PACKET PO SCH (16:29)
[2019-11-25] MEDS ORDERED: FLEET ENEMA PR ONE (18:15)
[2019-11-25] MEDS ORDERED: FLEET ENEMA PR PRN (20:00)
[2019-11-25] MEDS: ATORVASTATIN 20 MG TAB PO SCH (20:25)
[2019-11-25] MEDS: MONTELUKAST 10 MG TAB PO SCH (20:25)
[2019-11-26] VITALS (7 sets, daily range): BP systolic 105–142; BP diastolic 73–95; O2SAT 92
[2019-11-26] MEDS: SLF 3 ML SYR IV SCH ×3 (04:29→20:36)
[2019-11-26 04:57] LABS: BASO # 0.1 10^3/uL (0.0-0.2); BASO % 0.3 % (0.0-1.0); EOS # 0.3 10^3/uL (0.0-0.5); EOS % 1.3 % (0.0-3.0); HEMATOCRIT 43.3 % (42.0-52.0); HEMOGLOBIN 14.3 g/dl (13.5-17.5); LYMPH # 3.1 10^3/uL (1.5-5.0); LYMPH % 15.9 % (24.0-44.0); MEAN CORPUSCULAR HEMOGLOBIN 30.3 pg (27.0-33.0); MEAN CORPUSCULAR VOLUME 91.7 fl (80.0-96.0); MONO # 1.6 10^3/uL (0.0-0.8); NEUTROPHILS # 14.5 10^3/uL (1.5-8.5); PLATELET COUNT, AUTOMATED 192 10^3/uL (150-450); RED BLOOD COUNT 4.72 10^6/uL (4.30-6.10); WHITE BLOOD COUNT 19.6 10^3/uL (4.0-10.0)
[2019-11-26 05:20] LABS: ALBUMIN 3.1 GM/DL (3.2-5.2); BILIRUBIN,TOTAL 2.9 MG/DL (0.2-1.0); CALCIUM LEVEL 7.9 MG/DL (8.8-10.2); CREATININE FOR GFR 1.45 MG/DL (0.70-1.30); GLOMERULAR FILTRATION RATE 51.1 (>42); TOTAL PROTEIN 6.1 GM/DL (6.4-8.2)
[2019-11-26] MEDS: TIOTROPIUM INHALER/CAPSULE (SPIRIVA) INH SCH (07:41)
[2019-11-26] MEDS: TORSEMIDE 20 MG TAB PO SCH ×2 (07:58→16:18)
[2019-11-26] MEDS: AUGMENTIN 500 MG TAB PO SCH ×2 (08:35→20:34)
[2019-11-26] MEDS: POTASSIUM CHLORIDE 10 MEQ SR TABLET PO SCH ×2 (08:35→20:35)
[2019-11-26] MEDS: VITAMIN D 1,000 INTERNATIONAL UNITS TABLET PO SCH (08:35)
[2019-11-26] MEDS: predniSONE 20 MG TAB PO SCH (08:35)
[2019-11-26] MEDS: CLOPIDOGREL 75 MG TAB PO SCH (08:35)
[2019-11-26] MEDS: MIRALAX *UNIT DOSE* 17GM PACKET PO SCH (08:35)
[2019-11-26] MEDS: BENZONATATE 100 MG CAP PO SCH ×2 (08:35→20:35)
[2019-11-26] MEDS: FLUTICASONE PROP 0.05% NASAL SPRAY 16 GM (FLONASE) SCH (08:36)
--- NOTE | 2019-11-26 11:22 | IPNPDOC ---
Text Note Date of Service The patient was seen on 11/26/19. NOTE Interim events: -Finally spoke with Dr. Abraham who recommended that the rocket needs to be in place for at least 4 days at which point he will consider removal (today is day 3). He also requested that I speak with cardiology (Dr. Brandt) about the possibility of holding ASA/Plavix for up to 1 week to allow his epistaxis to resolve. This is in the setting of knowing that he has 4 cardiac stents with 1 of them having been placed 4-5 months. -I called Dr. Brandt who informed me that his recent stent sure is a ANNA and there is strict instruction to NOT DAPT for a year. He recommended that if it is absolutely necessary he would recommend holding ASA for up to 3 days total but NOT stop the plavix but perhaps consider cautery etc per ENT. -At this time, I held ASA starting this AM -Also started empiric augmentin this AM per ENT while rhinorocket is in place Subjective: -Feels ok, rhinorocket still in place -Stable baseline hypoxemia Objective: Vitals: see below. Hemodynamically stable, afebrile General: Obese, NAD Eyes: Anicteric, non injected, PERRLA, EOMI ENT: R nare with rhinorocket in place, L nare patent, no active bleeding Neck: Thick, supple, no adenopathy, trachea midline Chest: Normal air movement, bibasilar dry crackles, scattered rare expiratory wheezing, no rhonchi, with aerosol mask on, breathing comfortably Heart: Rate Normal, Regular Rhythm, Normal S1, Normal S2, no noted murmurs Abdomen: Obese, normal bowel sounds, soft,, NTND Extremity2+ pedal edema, WWP, 2+ DP pulses, no tenderness Skin: normal turgor and temperature no breakdown or lesion, area around nares with some dry blood Neuro: Normal Speech, Strength at 5/5 X4 ext, Cranial Nerves 3-12 NL Psych: Mental status NL, Oriented x 3 Labs: reviewed. WBC 19.6 hgb 14.3 K 3.4 Cr 1.45 Epistaxis: likely 2/2 dry nasal mucosa while on home O2, possible trauma -s/p hemostasis with 7.5 rhinoblast on 11/21, removed and replaced 11/23 for persistent bleeding -ENT consulted, Dr. Seymour Abraham in the ED, reached out this weekend but told that he was actually not covering and there was no coverage this weekend, took it out after 48h with continued bleeding so replaced it, now day 3 since replacement. Spoke with Dr. Abraham on 11/24 who recommended keeping it in place for at least 4days at which point he will evaluate for removal and requested I reach out to cardiology to discuss holding DAPT to allow the bleeding to stop. I did reach out the patient's encoding clerk Dr. Brandt who strongly recommended against stopping DAPT given that his recent stent is a ANNA and recommended at best holding ASA for up 3 days total, which I did starting this AM (11/25) -Held ASA, continued plavix after firm recommendation from cardiology to not stop the plavix given the recent ANNA -start empiric augmentin 500 BID while rocket is in place, day #1 -currently on aerosol mask with stable O2 requirements -unable to discharge home for outpatient ENT follow up as baseline O2 requirements are too high for a mask if unable to use a nasal canula due to rocket being in place. Chronic HFpEF: compensated - continue home doses of diuretics - Daily weights and strict I's and O's - 1500 mL fluid restriction - Supplemental oxygen as needed to maintain saturation between 88-92% - Telemetry monitoring Chronic respiratory failure due to pulmonary fibrosis, COPD, pulmonary hypertension on 4 L of nasal cannula at home. - maintain saturation between 88 and 92% - Continue home duonebs BID - Substitute umeclidinium with spiriva - Continue with prednisone 20 mg daily, was previously on 10mg but recently increased by Dr. Person. Is on ppx bactrim for PCP ppx. - Continue albuterol inhaler PRN - Continue montelukast CAD s/p 4 stents - continue with his aspirin, Plavix, statin - monitor epistaxis carefully, if copious with significant H/H drop or per recommendation of ENT will consider holding antiplatelet agents Type 2 diabetes - continue holding home oral meds - sliding scale - FSBG AC/HS - hypoglycemic protocol CKD: Currently stable, renal function at baseline. - Will monitor renal function for now - Avoid nephrotoxin medications adjust medications for reduced GFR - Daily BMP DVT ppx: TEDs and SCDs Diet: consistent carb and 2g sodium Dispo: PCU. Pending ENT evaluation and management of epistaxis with rhinorocket in place VS,Fishbone, I+O VS, Fishbone, I+O Laboratory Tests 11/26/19 04:28 Vital Signs Date Time Temp Pulse Resp B/P (MAP) Pulse Ox O2 Delivery O2 Flow Rate FiO2 11/26/19 04:00 8.0 35 11/26/19 04:00 96.5 70 20 105/73 (84) 97 Tent/Mejia I&O- Last 24 Hours up to 6 AM 11/26/19 06:00 Intake Total 1980 ml Output Total 900 ml Balance 1080 ml JACQUI PEREZ MD Nov 26, 2019 07:32
[2019-11-26] MEDS: ALBUTEROL SULFATE 2.5 MG/0.5 ML INH NEB SOLN INH SCH ×2 (12:33→18:57)
[2019-11-26] MEDS ORDERED: GLUCOSE 4GM CHEW TABLET PO PRN (20:00)
[2019-11-26] MEDS ORDERED: DEXTROSE 50% 50 ML SYRINGE IV PRN (20:00)
[2019-11-26] MEDS ORDERED: GLUCAGON INJ 1MG VIAL SC PRN (20:00)
[2019-11-26] MEDS: RAMELTEON 8 MG TAB (ROZEREM) PO SCH (20:34)
[2019-11-26] MEDS: HumaLOG INSULIN (NovoLOG) PER UNIT SC SCH (20:34)
[2019-11-26] MEDS: ATORVASTATIN 20 MG TAB PO SCH (20:35)
[2019-11-26] MEDS: SODIUM CHLORIDE NASAL 0.65% SPRAY BTL (OCEAN) SCH (20:35)
[2019-11-26] MEDS: MONTELUKAST 10 MG TAB PO SCH (20:35)
[2019-11-27] VITALS (29 sets, daily range): BP systolic 86–117; BP diastolic 64–83
[2019-11-27] MEDS: HumaLOG INSULIN (NovoLOG) PER UNIT SC SCH ×4 (00:17→19:14)
[2019-11-27] MEDS: SLF 3 ML SYR IV SCH ×3 (05:52→23:28)
[2019-11-27] MEDS: TIOTROPIUM INHALER/CAPSULE (SPIRIVA) INH SCH (07:37)
[2019-11-27] MEDS: ALBUTEROL SULFATE 2.5 MG/0.5 ML INH NEB SOLN INH SCH ×3 (07:37→22:40)
[2019-11-27 08:34] LABS: HEMATOCRIT 44.7 % (42.0-52.0); HEMOGLOBIN 14.1 g/dl (13.5-17.5); MEAN CORPUSCULAR HEMOGLOBIN 29.4 pg (27.0-33.0); MEAN CORPUSCULAR HGB CONC 31.5 g/dl (32.0-36.5); MEAN CORPUSCULAR VOLUME 93.1 fl (80.0-96.0); PLATELET COUNT, AUTOMATED 218 10^3/uL (150-450); WHITE BLOOD COUNT 16.3 10^3/uL (4.0-10.0)
[2019-11-27 08:48] LABS: INR 1.17; PROTHROMBIN TIME 14.6 SECONDS (11.8-14.0)
[2019-11-27 08:49] LABS: PARTIAL THROMBOPLASTIN TIME 27.9 SECONDS (25.0-38.4)
[2019-11-27 09:07] LABS: BLOOD UREA NITROGEN 24 MG/DL (7-18); CALCIUM LEVEL 7.8 MG/DL (8.8-10.2); CARBON DIOXIDE LEVEL 29 MEQ/L (21-32); CHLORIDE LEVEL 105 MEQ/L (98-107); CREATININE FOR GFR 1.26 MG/DL (0.70-1.30); GLOMERULAR FILTRATION RATE > 60.0 (>42); GLUCOSE, FASTING 124 MG/DL (70-100); SODIUM LEVEL 140 MEQ/L (136-145)
--- NOTE | 2019-11-27 09:29 | ECGEPIP ---
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
[2019-11-27] MEDS: TORSEMIDE 20 MG TAB PO SCH ×2 (10:02→16:08)
[2019-11-27] MEDS: predniSONE 20 MG TAB PO SCH (10:02)
[2019-11-27] MEDS: CLOPIDOGREL 75 MG TAB PO SCH (10:02)
[2019-11-27] MEDS: AUGMENTIN 500 MG TAB PO SCH (10:02)
[2019-11-27] MEDS: BENZONATATE 100 MG CAP PO SCH ×2 (10:02→22:42)
[2019-11-27] MEDS: VITAMIN D 1,000 INTERNATIONAL UNITS TABLET PO SCH (10:02)
[2019-11-27] MEDS: POTASSIUM CHLORIDE 10 MEQ SR TABLET PO SCH (10:03)
[2019-11-27] MEDS: BACTRIM 160MG/800MG DS TAB PO SCH (10:03)
[2019-11-27] MEDS: MIRALAX *UNIT DOSE* 17GM PACKET PO SCH (10:03)
[2019-11-27] MEDS: SODIUM CHLORIDE NASAL 0.65% SPRAY BTL (OCEAN) SCH ×3 (10:04→21:00)
--- NOTE | 2019-11-27 12:37 | CR ---
DATE OF CONSULTATION: 11/26/2019 CHIEF COMPLAINT: Right epistaxis. HISTORY OF PRESENT ILLNESS: This 69-year-old man with multiple medical comorbidities, including chronic obstructive pulmonary disease (COPD), pulmonary fibrosis, and chronic oxygen (O2) therapy at home, pulmonary hypertension, congestive heart failure (CHF), cardiac stent placement 4-1/2 months ago, and diabetes presented to the [facility] Emergency Department on 11/22/2019 for a persistent right epistaxis. Complete hemostasis was eventually achieved by placing Rhino Rocket into the right nostril by the ED physician. The patient was admitted to the hospital for management of the underlying medical comorbidities, including acute and chronic respiratory failure. The patient has been on aspirin and Plavix due to recent placement of the cardiac stents. Over the weekend on Monday, the Rhino Rocket was removed by the hospitalist service. However, the patient developed recurrence of the epistaxis. As a result, a new Rhino Rocket was then placed on 11/24/2019. Since that time, the patient has been doing well without any more epistaxis on the right nostril. He has not experienced any bleeding from the oral cavity, either. MEDICATIONS: - albuterol - aspirin - atorvastatin - benzonatate - vitamin D3 - clopidogrel - Flonase - montelukast - Bactrim - torsemide - Ellipta - metformin ALLERGIES: SHELLFISH DERIVATIVES, BENAZEPRIL. PAST MEDICAL HISTORY: COPD. Pulmonary fibrosis. Pulmonary hypertension. Hyperlipidemia. CHF. Coronary artery disease. Diabetes. SURGICAL HISTORY: Cardiac stents placement done 4-1/2 months ago with the drug-eluting stents. FAMILY HISTORY: Diabetes. CHF. COPD. SOCIAL HISTORY: Former smoker. Occasional alcohol user. Nondrug user. TRAVEL HISTORY: No recent travel. No contact of sick people. Former smoker for 15 years. History of [id number] smoking. REVIEW OF SYSTEMS: As listed in the history of the present illness, otherwise noncontributory. PHYSICAL EXAMINATION: On examination, the patient appears in no acute distress. Rhino Rocket in the right nostril, dry, with clots on the interior nostril. Left nostril free of fresh blood or blood clots. Eyes: Pupils equal and reactive. No scleral icterus. Nose: Normal nasal anatomy. Rhino Rocket in situ. Deviation in nasal septum to the left side due to nasal packing. Oral cavity: Moist mucosa. Oral tongue clear. Floor of mouth nonelevated. Posterior pharyngeal wall free of fresh blood or blood clots. Neck: Trachea midline. No cervical lymphadenopathy. No thyromegaly. LABORATORIES: White count 19.6, hemoglobin 14.3, platelets 192, neutrophil count is 74. PT 14.8 elevated, INR 1.19. Normal electrolytes. BUN 31 elevated, creatinine 1.45 elevated, calcium 7.9 low, fasting glucose 162 elevated. IMPRESSION: A 69-year-old man on anticoagulation therapy. His right epistaxis currently controlled with Rhino Rocket. PLAN: According to the patient's painter and grader cork, the Plavix cannot be withheld due to recently-placed cardiac stents. As such, the nasal packing needs to be in for at least 3-4 days minimum. As the patient is at high risk for potential recurrent epistaxis and requiring additional invasive procedure, including cauterization, I have discussed the case with the hospitalist. The patient will have the Rhino Rocket removed in the operating room so that in case the epistaxis recurs, I will be able to perform invasive procedures to control the epistaxis on a stat basis. If patient is unresponsive to treatment of epistaxis despite surgical intervention, embolization may need to be considered. At this time, the patient will be nothing by mouth after midnight. The operating room (OR) of desk sergeant, booking has been made. Anesthesia is also made aware of the medical complexity of the patient. The hospitalist will clear the patient for surgery. JEROME
--- NOTE | 2019-11-27 13:27 | IPNPDOC ---
Text Note Date of Service The patient was seen on 11/27/19. NOTE Interim events: -Held ASA, continued plavix per Dr. Brandt after request from ENT to hold DAPT for epistaxis management -started empiric augmentin while rhinorocket is in place -Dr. Abraham made him NPO for plan for OR this AM for removal of rhinorocket and management of epistaxis Subjective: -Feels ok, rhinorocket still in place -Stable baseline hypoxemia, looking forward to OR -No chest pain, palpitations, fever, chills Objective: Vitals: see below. Hemodynamically stable, afebrile General: Obese, NAD Eyes: Anicteric, non injected, PERRLA, EOMI ENT: R nare with rhinorocket in place, L nare patent, no active bleeding Neck: Thick, supple, no adenopathy, trachea midline Chest: Normal air movement, bibasilar dry crackles, scattered rare expiratory wheezing, no rhonchi, with aerosol mask on, breathing comfortably Heart: Rate Normal, Regular Rhythm, Normal S1, Normal S2, no noted murmurs Abdomen: Obese, normal bowel sounds, soft,, NTND Extremity2+ pedal edema, WWP, 2+ DP pulses, no tenderness Skin: normal turgor and temperature no breakdown or lesion, area around nares with some dry blood Neuro: Normal Speech, Strength at 5/5 X4 ext, Cranial Nerves 3-12 NL Psych: Mental status NL, Oriented x 3 Labs: reviewed. AM labs pending 11/26 WBC 19.6 11/26 hgb 14.3 11/26 K 4 11/26 Cr 1.26 11/26 INR 1.17 Epistaxis: likely 2/2 dry nasal mucosa while on home O2, possible trauma -s/p hemostasis with 7.5 rhinoblast on 11/21, removed and replaced 11/23 for persistent bleeding -ENT consulted, Dr. Seymour Abraham in the ED, reached out this weekend but told that he was actually not covering and there was no coverage this weekend, took it out after 48h with continued bleeding so replaced it, now day 3 since replacement. Spoke with Dr. Abraham on 11/24 who recommended keeping it in place for at least 4days at which point he will evaluate for removal and requested I reach out to cardiology to discuss holding DAPT to allow the bleeding to stop. I did reach out the patient's animal pathologist Dr. Brandt who strongly recommended against stopping DAPT given that his recent stent is a ANNA and recommended at best holding ASA for up 3 days total, which I did starting this AM (11/25) -Held ASA, continued plavix after firm recommendation from cardiology to not stop the plavix given the recent ANNA -start empiric augmentin 500 BID while rocket is in place, day #1 -currently on aerosol mask with stable O2 requirements -unable to discharge home for outpatient ENT follow up as baseline O2 requirements are too high for a mask if unable to use a nasal canula due to rock et being in place. Chronic HFpEF: compensated - continue home doses of diuretics - Daily weights and strict I's and O's - 1500 mL fluid restriction - Supplemental oxygen as needed to maintain saturation between 88-92% - Telemetry monitoring Chronic respiratory failure due to pulmonary fibrosis, COPD, pulmonary hypertension on 4 L of nasal cannula at home. - maintain saturation between 88 and 92% - Continue home duonebs BID - Substitute umeclidinium with spiriva - Continue with prednisone 20 mg daily, was previously on 10mg but recently increased by Dr. Person. Is on ppx bactrim for PCP ppx. - Continue albuterol inhaler PRN - Continue montelukast CAD s/p 4 stents - continue with his aspirin, Plavix, statin - monitor epistaxis carefully, if copious with significant H/H drop or per recommendation of ENT will consider holding antiplatelet agents Type 2 diabetes - continue holding home oral meds - sliding scale - FSBG AC/HS - hypoglycemic protocol CKD: Currently stable, renal function at baseline. - Will monitor renal function for now - Avoid nephrotoxin medications adjust medications for reduced GFR - Daily BMP Preoperative Assessment Revised Cardiac Index for an ENT low risk surgery = 3, with 15% 30d risk of , MT or cardiac arrest Plan: based on his RCI score without cardiac or new pulmonary symptoms from his baseline, no additional pre and post-operative testing is warranted prior to proceeding with surgery /we are holding ASA to reduce the risk of continued bleeding and continuing his plavix given the recent coronary ANNA placement. Will resume ASA in 2 days per cardiology recommendations. -EKG NSR with stable RRR without ST changes or Q waves -CBC wnl, BMP with Cr 1.26 at baseline, proBNP 5106 which is lower than prior, coags wnl -Discussed ENT's OR plan with possible general anesthesia with Dr. Brandt who recommended going ahead DVT ppx: TEDs and SCDs Diet: NPO Dispo: pending ENT management of epistaxis in OR today VS,Fishbone, I+O VS, Fishbone, I+O Vital Signs Date Time Temp Pulse Resp B/P (MAP) Pulse Ox O2 Delivery O2 Flow Rate FiO2 11/27/19 06:00 98.4 81 18 117/77 (90) 91 Tent/Mejia 8.0 35 I&O- Last 24 Hours up to 6 AM 11/27/19 06:00 Intake Total 990 ml Output Total 1275 ml Balance -285 ml JACQUI PEREZ MD Nov 27, 2019 08:12
[2019-11-27] MEDS ORDERED: METHYLENE BLUE 0.5% (5MG/ML) 10 ML AMP (PROVAYBLUE)(Q9968 PER 1MG) As Ordered ONE (16:17)
[2019-11-27] MEDS ORDERED: EPINEPHrine 1MG/ML INJ 30ML MD-VIAL As Ordered ONE (16:17)
[2019-11-27] MEDS ORDERED: BACITRACIN OINTMENT 30GM TUBE As Ordered ONE (16:18)
[2019-11-27] MEDS ORDERED: SILVER NITRATE APPLICATOR As Ordered ONE (16:18)
[2019-11-27] MEDS ORDERED: MIDAZOLAM INJ 2MG/2ML VIAL (J2250 PER 1MG) As Ordered ONE ×5 (17:27→21:32)
[2019-11-27] MEDS ORDERED: fentaNYL 100 MCG/2 ML INJECTION (J3010) As Ordered ONE (17:27)
[2019-11-27] MEDS ORDERED: propofoL 200 MG/20 ML VIAL As Ordered ONE (17:28)
[2019-11-27] MEDS ORDERED: ONDANSETRON 4MG/2ML VIAL As Ordered ONE (17:29)
[2019-11-27] MEDS ORDERED: LIDOCAINE 2% 100MG/5ML SDV (FOR ANES.) As Ordered ONE (17:30)
[2019-11-27] MEDS ORDERED: OXYMETAZOLINE NASAL SPRAY (AFRIN) As Ordered ONE (17:59)
[2019-11-27] MEDS ORDERED: LABETALOL 100MG/20ML VIAL As Ordered ONE (18:00)
[2019-11-27] MEDS ORDERED: CALCIUM CHLORIDE 10% 1 GM/10 ML SYR ONE (19:46)
[2019-11-27] MEDS ORDERED: SODIUM BICARBONATE 8.4% INJ 50 ML SYRINGE ONE (19:46)
[2019-11-27] MEDS ORDERED: NOREPINEPHRINE 4 MG/4 ML AMP ONE (19:46)
[2019-11-27] MEDS ORDERED: EPINEPHrine 1MG/10ML SYRINGE 1.5IN ONE (19:46)
[2019-11-27] MEDS ORDERED: VASOPRESSIN INJ 20 UNITS/ML VIAL As Ordered ONE (19:58)
[2019-11-27 20:00] LABS: INR 1.27; PROTHROMBIN TIME 15.6 SECONDS (11.8-14.0)
[2019-11-27] MEDS: NOREPINEPHRINE BITARTRATE 8 MG in D5W 492 ML IV SCH (20:00)
[2019-11-27] MEDS ORDERED: FUROSEMIDE 100MG/10ML VIAL (J1940) IV ONE (20:00)
[2019-11-27] MEDS ORDERED: MIDAZOLAM INJ 2MG/2ML VIAL (J2250 PER 1MG) IV ONE (20:00)
[2019-11-27 20:01] LABS: PARTIAL THROMBOPLASTIN TIME 32.3 SECONDS (25.0-38.4)
[2019-11-27 20:03] LABS: APPEARANCE, URINE CLEAR (CLEAR); BACTERIA, URINE AUTO 1+ (NEGATIVE); BILIRUBIN, URINE AUTO NEGATIVE (NEGATIVE); BLOOD, URINE BLOOD 1+ (NEGATIVE); COLOR, URINE YELLOW (YELLOW); GLUCOSE, URINE (UA) AUTO NEGATIVE (NEGATIVE); KETONE, URINE AUTO NEGATIVE (NEGATIVE); LEUKOCYTE ESTERASE, URINE AUTO NEGATIVE (NEGATIVE); NITRITE, URINE AUTO NEGATIVE (NEGATIVE); PROTEIN, URINE AUTO NEGATIVE (NEGATIVE); RBC, URINE AUTO 4 /HPF (0-3); SPECIFIC GRAVITY URINE AUTO 1.005 (1.002-1.035); SQUAMOUS EPITHELIAL CELL UR AU 0 /HPF (0-6); WBC, URINE AUTO 2 /HPF (0-3)
[2019-11-27 20:04] LABS: ABG BASE EXCESS -8.6 (-2.0-2.0); ABG HCO3 16.7 MEQ/L (22.0-26.0); ABG O2 SATURATION 99.6 % (95.0-99.0); ABG PARTIAL PRESSURE CO2 34.3 mmHg (35.0-45.0); ABG PARTIAL PRESSURE O2 217.4 mmHg (75.0-100.0); ABG STANDARD HCO3 17.7 MEQ/L (22.0-26.0); ABG TOTAL CO2 17.7 MEQ/L (23.0-31.0); ABG pH (ARTERIAL) 7.304 UNITS (7.350-7.450)
[2019-11-27] MEDS ORDERED: SODIUM BICARBONATE 8.4% INJ 50 ML SYRINGE As Ordered ONE (20:21)
[2019-11-27] MEDS ORDERED: ACETAMINOPHEN 650 MG SUPP PR PRN (20:30)
--- NOTE | 2019-11-27 20:30 | REP ---
Portable chest x-ray: Single view. History: Tube placement. Comparison study October 24, 2019. Findings: Endotracheal tube is noted in good position at the level of proximal clavicles. Monitoring electrodes are seen. There is diffuse interstitial fibrosis pattern in the lung martinez and band-like area of parenchymal density seen in the right upper lobe. Mild cardiomegaly is observed. No new area of consolidation is seen. Electronically Signed by Naeem Benson MD 11/27/2019 08:21 P
[2019-11-27 20:32] LABS: ALBUMIN 2.9 GM/DL (3.2-5.2); BILIRUBIN,TOTAL 2.5 MG/DL (0.2-1.0); C REACTIVE PROTEIN QUANTITATIV 6.4 MG/DL (0.00-0.30); CALCIUM LEVEL 8.8 MG/DL (8.8-10.2); CK-MB VALUE MASS 4.4 NG/ML (<3.6); CREATININE FOR GFR 1.55 MG/DL (0.70-1.30); GLOMERULAR FILTRATION RATE 47.3 (>42); MB/CK RELATIVE INDEX 1.83 (< OR =4); POTASSIUM SERUM 6.1 MEQ/L (3.5-5.1); TOTAL PROTEIN 6.1 GM/DL (6.4-8.2); TROPONIN I 0.25 NG/ML (< 0.10)
[2019-11-27 20:53] LABS: BASO # 0.1 10^3/uL (0.0-0.2); BASO % 0.3 % (0.0-1.0); HEMATOCRIT 44.8 % (42.0-52.0); HEMOGLOBIN 13.8 g/dl (13.5-17.5); LYMPH # 0.7 10^3/uL (1.5-5.0); LYMPH % 3.3 % (24.0-44.0); MEAN CORPUSCULAR HEMOGLOBIN 29.4 pg (27.0-33.0); MEAN CORPUSCULAR HGB CONC 30.8 g/dl (32.0-36.5); MEAN CORPUSCULAR VOLUME 95.5 fl (80.0-96.0); MONO # 1.1 10^3/uL (0.0-0.8); MONO % 4.9 % (0.0-5.0); NEUTROPHILS # 19.9 10^3/uL (1.5-8.5); NEUTROPHILS % 89.2 % (36.0-66.0); PLATELET COUNT, AUTOMATED 215 10^3/uL (150-450); RED BLOOD COUNT 4.69 10^6/uL (4.30-6.10); WHITE BLOOD COUNT 22.3 10^3/uL (4.0-10.0)
[2019-11-27] MEDS: MONTELUKAST 10 MG TAB PO SCH (21:00)
[2019-11-27] MEDS: RAMELTEON 8 MG TAB (ROZEREM) PO SCH (21:00)
[2019-11-27] MEDS: ATORVASTATIN 20 MG TAB PO SCH (21:00)
[2019-11-27 21:12] LABS: ERYTHROCYTE SEDIMENTATION RATE 11 mm/hr (0-20)
[2019-11-27 21:15] LABS: CALCIUM LEVEL 8.6 MG/DL (8.8-10.2); CREATININE FOR GFR 1.61 MG/DL (0.70-1.30); GLOMERULAR FILTRATION RATE 45.3 (>42); POTASSIUM SERUM 5.1 MEQ/L (3.5-5.1)
[2019-11-27] MEDS ORDERED: MIDAZOLAM INJ 2MG/2ML VIAL (J2250 PER 1MG) IV STA (21:22)
[2019-11-27] MEDS ORDERED: VANCOMYCIN HCL 1,000 MG, VIAL MATE ADAPTER 1 EACH in D5W 250 ML IV SCH (21:30)
[2019-11-27] MEDS: VASOPRESSIN INJ 20 UNITS in NS 499 ML IV SCH (21:47)
[2019-11-27] MEDS: fentaNYL 100 MCG/2 ML INJECTION (J3010) IV PRN ×2 (21:53→22:49)
[2019-11-27] MEDS: MIDAZOLAM INJ 2MG/2ML VIAL (J2250 PER 1MG) IV PRN ×2 (21:53→22:49)
[2019-11-27] MEDS ORDERED: VANCOMYCIN HCL 750 MG, VIAL MATE ADAPTER 1 EACH in D5W 250 ML IV ONE ×2 (22:00→23:00)
[2019-11-27] MEDS: HYDROCORTISONE 100 MG/2 ML VIAL (J1720 PER 1) IV SCH (23:28)
[2019-11-28] VITALS (45 sets, daily range): BP systolic 72–136; BP diastolic 50–90; O2SAT 96
[2019-11-28] MEDS: fentaNYL 100 MCG/2 ML INJECTION (J3010) IV PRN ×2 (00:10→04:13)
[2019-11-28] MEDS: MIDAZOLAM INJ 2MG/2ML VIAL (J2250 PER 1MG) IV PRN ×6 (00:10→17:34)
[2019-11-28] MEDS: PIPERACILLIN/TAZOBACTAM SOD 2.25 GM in D5W MINI-BAG PLUS 50 ML IV SCH ×2 (01:30→12:10)
[2019-11-28 02:31] LABS: CK-MB VALUE MASS 10.9 NG/ML (<3.6); MB/CK RELATIVE INDEX 5.53 (< OR =4); TROPONIN I 3.27 NG/ML (< 0.10)
--- NOTE | 2019-11-28 02:44 | IPNPDOC ---
Date Seen The patient was seen on 11/28/19. Progress Note Max cart was called 190, no shocks were given and pulse returned chemical and compression therapy. and ROSC was achieved 1909. Patient was intubated by REED [email or web address]. [place] labs, chest x-ray and ekg was ordered. Non specific t-wave abnormalities noted especially in v1-3. Biomedical Equipment Support Specialist was called to manage vent and family was called with an update. VS, I&O, 24H, Fishbone Vital Signs/I&O Vital Signs Date Time Temp Pulse Resp B/P (MAP) Pulse Ox O2 Delivery O2 Flow Rate FiO2 11/28/19 00:30 73 25 105/79 (88) 93 Ventilator 50 11/28/19 00:00 96.8 11/27/19 18:45 8 I&O- Last 24 Hours up to 6 AM 11/28/19 06:00 Intake Total 925 ml Output Total 1850 ml Balance -925 ml Laboratory Data 24H LABS Laboratory Tests 2 11/27/19 05:49: Bedside Glucose (Misc Panel) 127H 11/27/19 08:18: Nucleated Red Blood Cells % (auto) 0.0, Prothrombin Time 14.6H, Prothromb Time International Ratio 1.17, Activated Partial Thromboplast Time 27.9, Anion Gap 6L, Glomerular Filtration Rate > 60.0, Calcium Level 7.8L, RS-Tkh-[id number]-Type Natriuretic Peptide 5106H 11/27/19 12:13: Bedside Glucose (Misc Panel) 166H 11/27/19 19:12: Bedside Glucose (Misc Panel) 221H 11/27/19 19:31: Urine Color YELLOW, Urine Appearance CLEAR, Urine pH 7.0, Urine Specific [place] 1.005, Urine Protein NEGATIVE, Urine Glucose (Auto)(UA) NEGATIVE, Urine Ketones (Auto) NEGATIVE, Urine Blood 1+H, Urine Nitrite NEGATIVE, Urine Bilirubin NEGATIVE, Urine Urobilinogen 4.0H, Urine Leukocyte Esterase (Auto) NEGATIVE, Urine WBC (Auto) 2, Urine RBC (Auto) 4H, Urine Hyaline Casts (Auto) 3, Urine Bacteria (Auto) 1+H, Urine Squamous Epithelial Cells 0, Urine Sperm (Auto) SMALLH 11/27/19 19:35: Immature Granulocyte % (Auto) 2.3, Neutrophils (%) (Auto) 89.2H, Lymphocytes (%) (Auto) 3.3L, Monocytes (%) (Auto) 4.9, Eosinophils (%) (Auto) 0.0, Basophils (%) (Auto) 0.3, Neutrophils # (Auto) 19.9H, Lymphocytes # (Auto) 0.7L, Monocytes # (Auto) 1.1H, Eosinophils # (Auto) 0.0, Basophils # (Auto) 0.1, Nucleated Red Blood Cells % (auto) 0.1H, Erythrocyte Sedimentation Rate 11, Prothrombin Time 15.6H, Prothromb Time International Ratio 1.27, Activated Partial Thromboplast Time 32.3, Anion Gap 14, Glomerular Filtration Rate 47.3, Lactic Acid Level 9.3*H, Calcium Level 8.8, Total Bilirubin 2.5H, Aspartate Amino Transf (AST/SGOT) 411H, Alanine Aminotransferase (ALT/SGPT) 275H, Alkaline Phosphatase 158H, Ammonia 45H, Total Creatine Kinase 240, Creatine Kinase MB 4.4H, Creatine Kinase MB Relative Index 1.83, Troponin I 0.25H, C-Reactive Protein, Quantitative 6.40H, Total Protein 6.1L, Albumin 2.9L, Albumin/Globulin Ratio 0.91L 11/27/19 19:54: Blood Gas Bicarbonate Standard 17.7L, Arterial Blood pH 7.304L, Arterial Blood Partial Pressure CO2 34.3L, Arterial Blood Partial Pressure O2 217.4H, Arterial Blood Total CO2 17.7L, Arterial Blood HCO3 16.7L, Arterial Blood Base Excess - 8.6L, Arterial Blood Oxygen Saturation 99.6H 11/27/19 20:40: Anion Gap 8, Glomerular Filtration Rate 45.3, Calcium Level 8.6L 11/27/19 23:53: Lactic Acid Followup at 4 Hours 2.6*H 11/28/19 01:45: CBC/BMP Laboratory Tests 11/27/19 08:18 11/27/19 19:35 11/27/19 20:40 Microbiology Microbiology 11/27/19 Blood Culture, Received Pending JERSON QUICK DO Nov 28, 2019 02:44
--- NOTE | 2019-11-28 05:17 | PHACANCOPD ---
PHARMACY VANCOMYCIN DOSING Pt Demographics Demographics Patient Age:69 , Weight:106.400 , Gender: male Adjusted Body Weight Date: 11/28/19, Adjusted Body Weight: [83.6] Kg Vancomycin Vancomycin indication: SEPSIS,SHOCK Vancomycin Target Ranges: 15-20 mcg/ml Vancomycin Load Y/N: Yes Load Dose Date Time Vancomycin Load Dose: 1500MG Date: 11/26 Time: 23;00 Vancomycin Dose Date: 11/28/19. Current Vancomycin Dose: [750MG IV Q12H] Intermittent Dosing?: No Labs Micro Microbiology 11/27/19 Blood Culture, Received Pending Creatinine Clearance Date:11/28/19. Creatinine Clearance: [~50]. Assessment and Plan Maintaining Current Dose?: Yes Reason for dose change: No Dose Change Pharmacist Note Pharmacist Note Date: 11/28/19. Pharmacist note:69YOM ,HT:68" ,WT:106.4KG(ABW=83.6KG)SCR:1.61,CRCL=49.76(CALCULATED)ALLERGIES: BENAZEPRIL,SHELLFISH.DX of sepsis/shock with new ABX regimen of PIP/TAZO 2.25gm q12h and Pharmacy dosed Vancomycin(trough goal=15-20). MRSA PCR pending. Vancomycin 1.5gm load sdministered 11/26@23:00, then will begin 750mg IV Q12h to begin this morning@0800.First trough is scheduled for 11/28 @0700 (prior to the 4th dose).Will continue to follow. HARISH PORTILLO PHARMACY Nov 28, 2019 05:17
[2019-11-28] MEDS: HEPARIN SOD (PORCINE) 5000UNITS/ML VIAL (J1644 PER 1000UNITS) SQ SCH ×3 (05:18→22:40)
[2019-11-28] MEDS: SLF 3 ML SYR IV SCH ×3 (05:18→22:41)
[2019-11-28] MEDS: HYDROCORTISONE 100 MG/2 ML VIAL (J1720 PER 1) IV SCH ×3 (05:18→22:40)
[2019-11-28] MEDS: HumaLOG INSULIN (NovoLOG) PER UNIT SC SCH ×4 (05:18→17:34)
[2019-11-28 05:39] LABS: BASO % 0.1 % (0.0-1.0); EOS % 0.1 % (0.0-3.0); HEMATOCRIT 43.8 % (42.0-52.0); HEMOGLOBIN 13.9 g/dl (13.5-17.5); LYMPH # 1.1 10^3/uL (1.5-5.0); LYMPH % 5.8 % (24.0-44.0); MEAN CORPUSCULAR HGB CONC 31.7 g/dl (32.0-36.5); MEAN CORPUSCULAR VOLUME 94.6 fl (80.0-96.0); MONO # 1.4 10^3/uL (0.0-0.8); NEUTROPHILS # 16.6 10^3/uL (1.5-8.5); NEUTROPHILS % 85.9 % (36.0-66.0); PLATELET COUNT, AUTOMATED 213 10^3/uL (150-450); RED BLOOD COUNT 4.63 10^6/uL (4.30-6.10); WHITE BLOOD COUNT 19.3 10^3/uL (4.0-10.0)
[2019-11-28 05:50] LABS: INR 1.3; PROTHROMBIN TIME 15.9 SECONDS (11.8-14.0)
[2019-11-28] MEDS: NOREPINEPHRINE BITARTRATE 8 MG in D5W 492 ML IV SCH (06:08)
[2019-11-28] MEDS: VASOPRESSIN INJ 20 UNITS in NS 499 ML IV SCH (06:09)
[2019-11-28 06:11] LABS: ABG BASE EXCESS 0.9 (-2.0-2.0); ABG HCO3 24.2 MEQ/L (22.0-26.0); ABG O2 SATURATION 98.4 % (95.0-99.0); ABG PARTIAL PRESSURE CO2 34.7 mmHg (35.0-45.0); ABG PARTIAL PRESSURE O2 120.6 mmHg (75.0-100.0); ABG STANDARD HCO3 25.3 MEQ/L (22.0-26.0); ABG TOTAL CO2 25.3 MEQ/L (23.0-31.0); ABG pH (ARTERIAL) 7.462 UNITS (7.350-7.450)
[2019-11-28 06:11] LABS: C REACTIVE PROTEIN QUANTITATIV 6.26 MG/DL (0.00-0.30)
[2019-11-28 06:16] LABS: CK-MB VALUE MASS 10.2 NG/ML (<3.6); MB/CK RELATIVE INDEX 5.8 (< OR =4); TROPONIN I 3.42 NG/ML (< 0.10)
[2019-11-28 06:23] LABS: ALBUMIN 2.8 GM/DL (3.2-5.2); BILIRUBIN,TOTAL 2.6 MG/DL (0.2-1.0); CALCIUM LEVEL 7.9 MG/DL (8.8-10.2); CREATININE FOR GFR 1.64 MG/DL (0.70-1.30); GLOMERULAR FILTRATION RATE 44.3 (>42); MAGNESIUM LEVEL 2.4 MG/DL (1.8-2.4); PHOSPHORUS LEVEL 5.2 MG/DL (2.5-4.9); TOTAL PROTEIN 5.6 GM/DL (6.4-8.2)
--- NOTE | 2019-11-28 07:08 | RO ---
DATE OF PROCEDURE: 11/27/2019 INDICATION: Administration of vasopressor. PREPROCEDURE DIAGNOSIS: Shock. POSTPROCEDURE DIAGNOSIS: Shock. PROCEDURE: Central line insertion. ATTENDING PHYSICIAN: Dr. Winters CONSENT: Due to the emergent nature of the procedure, the consent was implied. Patient's family was notified about the need for the central line, and they did agree verbally. PROCEDURE SUMMARY: A central line insertion practice form was completed by independent observer starting with the first hand wash prior to starting sterile technique. A time-out was performed. My hands were washed immediately prior to procedure. Full sterile technique was maintained throughout the procedure, including surgical cap, mask, protective eyewear, sterile gown, and sterile gloves. The right inguinal region was prepped using chlorhexidine scrub and draped in sterile fashion using a fenestrated drape, and a sterile probe cover was employed. Using ultrasound, the right femoral vein was identified. Anesthesia was achieved over the vein using 1% lidocaine. Using real-time [id number] ultrasound guidance, the introducer needle was inserted into the right femoral vein. Venous blood was drawn. The syringe was removed, and a guidewire was advanced into the introducer needle. The introducer needle was removed over the guidewire, and a small incision was made at skin surface with a scalpel. A dilator was exchanged over the guidewire. After appropriate dilation was obtained, the dilator was exchanged over the wire for a triple-lumen central venous catheter. The wire was removed, and the catheter was sutured in place. A sterile chlorhexidine-impregnated dressing was placed over the catheter at the insertion site. The patient tolerated the procedure without any hemodynamic compromise. At time of procedure completion, all ports were aspirated and flushed properly. The estimated blood loss was approximately 5 mL. MTDD
--- NOTE | 2019-11-28 07:16 | CR ---
DATE OF CONSULTATION: 11/27/2019 HISTORY OF PRESENT ILLNESS: Mr. 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 The patient had presented with complaints of significant epistaxis from his right nostril initially. In the emergency department (ED) on admission he had packing of the right nostril with some hemostasis and then started developing bleeding from the left nostril as well. He had worsening of his chronic hypoxemic respiratory failure and required placement of a non-rebreather and then later was able to be changed to a Venti mask. Given his recent coronary artery stents, he was continued on his Plavix. His aspirin was on hold. The patient was then seen by ENT earlier today. He had a Rhino Rocket that was in place to achieve hemostasis, but given the need for ongoing antiplatelet therapy and risk of recurrent bleeding with removal of the Rhino Rocket and potential need for a surgical intervention, he was taken to the OR by ENT for the removal of the Rhino Rocket under more controlled conditions. The patient did not require general anesthesia for the procedure. He was given 2 mg of Versed and fentanyl approximately 100 mcg for anesthesia. He was reportedly conversant during the procedure and had removal of the Rhino Rocket without any significant rebleeding noticed. He did get IV fluid hydration of approximately 350 mL during the procedure. Postprocedure, he was brought to the recovery area. The patient was noted to have some increased difficulty breathing and his blood pressures were somewhat lower than his previous. The patient then became less responsive with agonal breathing and was noted to have a pulseless electrical activity (PEA) arrest. The patient had cardiopulmonary resuscitation (CPR) initiated. He received epinephrine as well as bicarb and calcium during his cardiac arrest. He did have brief return of spontaneous circulation (ROSC) after a few minutes of CPR. However, he lost his pulse again and had another brief round of CPR before achieving and sustaining ROSC. Post ROSC, the patient was hypotensive and he was started on Levophed peripherally to maintain a blood pressure. The patient also received another dose of sodium bicarbonate push. He was reportedly squeezing hands to command and withdrawing to pain and other stimuli appropriately. He was agitated and he did require p.r.n. Versed for sedation post arrest. The patient's family was contacted, his son and daughter. The patient had previously had documentation on his medical orders for life-sustaining treatment (MOLST) of DO NOT RESUSCITATE/DO NOT INTUBATE (DNR/DNI) from his prior hospitalization in September. The patient has had two hospitalizations in September for worsening of his chronic hypoxemic respiratory failure and decompensated congestive heart failure (CHF). He signed out on one of his admissions against medical advice (AMA.) On this admission, there is documentation from the ED that patient had rescinded his DNR/DNI. In conversation with the patient's family, they stated that his last known wishes to them were that he would be DNR and DNI. As he is currently intubated, the patient's family would like to continue him on mechanical ventilation for now and continue with vasopressor for blood pressure support. They did wish that if his heart were to stop again that they would not want CPR resuscitation. The patient had a new MOLST updated in his chart then that states he is a DNR with a trial of intubation. History was obtained from the chart and other collateral information as the patient was intubated and unable to provide a history. PAST MEDICAL AND SURGICAL HISTORY: 1. 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 2. Chronic hypoxemic respiratory failure on 4 liters a minute nasal cannula. 3. Chronic obstructive pulmonary disease (COPD). 4. Severe pulmonary hypertension with cor pulmonale. 6. Hyperlipidemia. 7. Coronary artery disease status post stents. 8. Diabetes. HOME MEDICATIONS: - aspirin - atorvastatin - Tessalon Perles - vitamin D3 - Plavix - Flonase nasal spray - Singulair - prednisone 20 mg daily - Janumet - Bactrim - torsemide - Incruse - albuterol p.r.n. ALLERGIES: - BENAZEPRIL - SHELLFISH FAMILY HISTORY: Mother with history of CHF. COPD in multiple siblings. There is also family history of diabetes and heart disease. SOCIAL HISTORY: Former smoker with the 60+ pack years and quit approximately 15 years ago. Reports occasional alcohol use. PHYSICAL EXAMINATION: Temperature 96.0, pulse 79, respirations 30, blood pressure 84/55, O2 sat 100% on 75% FiO2. Ins 1.2 liters, out 1.6 liters, net negative 385. General: The patient is an elderly male who is lying in bed. He is sedated, but responsive to painful stimuli appropriately. HEENT: Normocephalic and atraumatic. Pupils are reactive to light bilaterally. There are moist mucous membranes. The patient appears to have some purple and red dusky discoloration of his head with suggestion of some plethora. Neck is supple. Trachea is midline. No palpable cervical adenopathy. Positive jugular venous distention (JVD). Cardiovascular: Regular rate and rhythm. Normal S1, S2, with a faint systolic murmur auscultated. Pulmonary: Some coarse ventilated breath sounds bilaterally, mildly diminished, with crackles at the bilateral bases. No wheezing or rhonchi noted. Abdomen is soft, nontender, nondistended. No palpable masses. Extremities: There is significant +3 pitting edema in the bilateral lower extremities up to the knees. The peripheral pulses are diminished. LABORATORY DATA: WBC 22.3, hemoglobin 13.8 and platelets are 215. Chemistry: Sodium is 143, potassium 5.1, chloride is 106, bicarb 29, BUN 26, creatinine is 1.61, glucose is 226, calcium 8.6, total bilirubin 2.5, AST and ALT 411 and 275, alkaline phosphatase 158, ammonia 145, troponin 0.25, albumin 2.9, BNP yesterday 5106, INR is 1.27, and lactic acid was 9.3. ABG: pH is 7.314, pCO2 of 34.3 and pO2 of 217. IMAGING: Chest x-ray shows endotracheal (ET) tube is in good position. There is diffuse interstitial pulmonary fibrosis pattern. There is a band-like area of opacity in the right upper lobe which appears more prominent on this x-ray from the previous film. There is cardiomegaly noted and questionable pleural effusion versus pericardial fat pad in the left side. ASSESSMENT AND PLAN: Mr. 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 The patient had been on dual antiplatelet therapy and he was complaining of issues of dryness in his nostrils in the setting of his nasal cannula oxygen use. The patient had required Rhino Rocket placement in the right nostril for hemostasis. Given his recent coronary stent placement, he was continued on Plavix and ENT was consulted for further management of his epistaxis. He had removal of the Rhino Rocket in the OR for a controlled setting. The procedure itself was uneventful and the patient had required some moderate sedation, but no general anesthesia. He did receive a small amount of normal saline fluids during the procedure. Postprocedure, the patient was noted to have some more difficulty with his breathing as well as lower blood pressure. He went into PEA arrest and did have ROSC achieved after approximately 10 minutes. Post arrest, the patient was hypotensive and required Levophed for vasopressor support. He was also intubated by anesthesia during his arrest. Neurologic: Post arrest, the patient was responsive to commands and squeezing hands appropriately as well as responding to painful stimuli appropriately. The patient is not appropriate for hypothermia protocol. - The patient is intubated and will have Versed p.r.n. for sedation and fentanyl p.r.n. for analgesia. Will attempt to maintain a SHANNAN of -2. - Will continue with daily sedation vacation as appropriate. Cardiovascular: - History of CAD with stent placement. History of severe pulmonary hypertension with cor pulmonale and recent hospitalizations for decompensated heart failure with preserved ejection fraction (EF). - The patient had PEA arrest with ROSC achieved after approximately 10 minutes. Post arrest, the patient is in shock and requires Levophed for vasopressor support. The patient's shock may be in the setting of sepsis. He did have increased leukocytosis on admission and was on Augmentin as he may have had some aspiration from his epistaxis. The patient also has previous echo showing severe pulmonary hypertension with right ventricle (RV) systolic pressure of 85 and a moderate reduction in the RV systolic function. He is very sensitive to fluid overload and with infection and possible fluid overload the patient may have had acute worsening of his pulmonary pressures which could have caused reduction in his cardiac output if he has intraventricular dependence on left ventricle (LV) filling. The patient does have evidence of significant bilateral pitting lower extremity edema on exam and suspect he does have elevated central venous pressures. His cardiac enzymes post arrest are mildly elevated and suspect he does have a component of demand ischemia. His ongoing shock may be in the setting of sepsis as well as possible cardiogenic shock given his history. - Will continue to trend cardiac enzymes and will repeat electrocardiogram (EKG). His initial EKG post arrest did not show any significant ST as elevation or depression. - Will repeat an echo. - Will continue with Levophed and will add vasopressin. Will titrate to maintain a mean arterial pressure (MAP) above 65. - Will place a right femoral triple lumen catheter for administration of vasopressors. - Will give 80 mg IV push of Lasix and will discontinue his by mouth torsemide and continue with Lasix IV with close monitoring of his ins and outs. The patient will have a delicate fluid balance given his severe pulmonary hypertension, particularly if he has a degree of sepsis as well. - Will continue to trend lactic acid. - Continue to hold aspirin for now, but can continue with Plavix. - Will hold the patient's statin due to some transaminitis. - The patient was on chronic prednisone for his pulmonary fibrosis. Given his shock, will give him stress dose steroids with hydrocortisone 50 mg every 8 for three days and then will taper down to his home prednisone of 20 mg daily. 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 The patient also has a history of COPD. He is intubated now after his cardiac arrest and on mechanical ventilation. - Continue with mechanical ventilator with PRVC with settings of 480/25/75/8. Will continue to wean down his FiO2 as tolerated to maintain O2 sat above 90% - Will continue with daily ABGs and chest x-rays while intubated and continue with vent bundle care with head of bed elevation and chlorhexidine mouthwash. - The patient was on chronic prednisone. He will be given stress dose steroids and then continued with his home dose of prednisone which was 20 mg by mouth daily prior to his admission. He was on Bactrim for PCP prophylaxis given his chronic steroid use. Will continue with atovaquone for now given concern for possible renal dysfunction. - The patient was on Augmentin for his leukocytosis and concern for possible aspiration pneumonia given his recent epistaxis. Will broaden his coverage to vancomycin and Zosyn given his septic shock. Will check a methicillin-resistant Staphylococcus aureus (MRSA) screen and procalcitonin to aid in de-escalation of antibiotics. - Continue with home medication of Spiriva in place of Incruse. - Continue with nebulizer three times a day. Renal: History of chronic kidney disease (CKD). The patient's appears to have mild acute kidney injury (ERIN) on his CKD likely in the setting of his shock and cardiac arrest. - Patiño catheter is placed for monitoring of his ins and outs. - The patient had hyperkalemia post arrest. He was on potassium supplements as an outpatient which were continued on the admission. Will discontinue his potassium chloride supplementation. He did already receive a dose of calcium during his cardiac arrest and his repeat potassium is improving. - Will continue to monitor electrolytes and treat as needed. - Will continue to monitor his renal function and renally dose medications. - History of diabetes. The patient will get finger sticks q.6 h with sliding scale coverage. Gastrointestinal (GI): - Patient with abnormal liver function tests (LFTs) with some increased transaminitis as well as bilirubin. Suspect the patient likely has some degree of hepatic congestion from his chronic right-sided heart failure and now with a possible component of shock liver given his cardiac arrest and shock. - Will continue to monitor liver function. If he has worsening LFTs, can consider imaging with a right upper quadrant sonogram - Will place an orogastric (OG) tube and keep patient nothing by mouth (n.p.o.) for now with OG tube to low wall intermittent suction. - GI prophylaxis with pantoprazole. Deep Vein Thrombosis (DVT) prophylaxis: Thromboembolic deterrent stockings (TEDs) and sequential compression devices (SCDs). Code Status: Confirmed with the patient's son with an updated MOLST on the chart that the patient is DNR with a trial of intubation. Total critical care time spent, not including any procedures, approximately 2 hours and 40 minutes. MTDD
[2019-11-28] MEDS: TIOTROPIUM INHALER/CAPSULE (SPIRIVA) INH SCH (07:46)
[2019-11-28] MEDS: ALBUTEROL SULFATE 2.5 MG/0.5 ML INH NEB SOLN INH SCH ×3 (07:48→19:34)
--- NOTE | 2019-11-28 07:55 | REP ---
Clinical: Respiratory distress. Intubation. Comparison: 11/27/2019. Findings: Endotracheal tube 3 cm above the quita. Nasogastric tube courses below left hemidiaphragm. No obvious central venous catheter noted. Stable cardiomegaly and perihilar mediastinal opacities are again noted which may reflect pulmonary vascular congestion as well as underlying adenopathy. Advanced chronic fibrosis/interstitial disease again noted. Subtle increased interstitial and alveolar opacities may be secondary to technique or active pathology. Small layering effusions cannot be excluded. Findings appear slightly increased when compared to prior examination. No pneumothorax. Skeletal structures are intact. Impression: 1. Tubes in satisfactory position. 2. Advanced chronic fibrosis/interstitial disease with findings to suggest subtle increased interstitial and alveolar markings when compared to prior examination. Electronically Signed by Bill Cartwright MD 11/28/2019 07:47 A
[2019-11-28] MEDS: VANCOMYCIN HCL 750 MG, VIAL MATE ADAPTER 1 EACH in D5W 250 ML IV SCH ×2 (07:57→20:56)
[2019-11-28 08:32] LABS: CK-MB VALUE MASS 10.3 NG/ML (<3.6); MB/CK RELATIVE INDEX 5.66 (< OR =4); TROPONIN I 3.47 NG/ML (< 0.10)
[2019-11-28] MEDS: BENZONATATE 100 MG CAP PO SCH ×2 (09:00→21:00)
[2019-11-28] MEDS: VITAMIN D 1,000 INTERNATIONAL UNITS TABLET PO SCH (09:30)
[2019-11-28] MEDS: CHLORHEXIDINE GLUCONATE 0.12 % 15ML UDC (PERIDEX ORAL RINSE) MT SCH ×2 (09:30→21:56)
[2019-11-28] MEDS: CLOPIDOGREL 75 MG TAB PO SCH (09:30)
[2019-11-28] MEDS: PANTOPRAZOLE 40MG VIAL (C9113 PER 1) IV SCH (09:30)
[2019-11-28] MEDS ORDERED: propofoL 1,000 MG in IV 1 EA IV SCH (09:45)
[2019-11-28] MEDS: ATOVAQUONE SUSP 750MG/5ML 210 ML BTL PO SCH (11:14)
[2019-11-28] MEDS: SODIUM CHLORIDE NASAL 0.65% SPRAY BTL (OCEAN) SCH ×3 (11:14→21:56)
[2019-11-28] MEDS: ASPIRIN 81 MG CHEW TABLET GT SCH (11:14)
[2019-11-28] MEDS: MIRALAX *UNIT DOSE* 17GM PACKET PO SCH (11:14)
--- NOTE | 2019-11-28 11:30 | ECHO ---
DATE OF STUDY: 11/28/2019 REFERRING PHYSICIAN: Dr. Ivon Reed INDICATION: Abnormal ECG. HEIGHT: 173 cm. WEIGHT: 106 kg. 2-D MEASUREMENTS: Left atrium: 3.2 cm Aortic root: 3.2 cm Ventricular septum: 1.26 cm Posterior wall: 0.78 cm Left ventricle diastole: 4.7 cm LVOT: 2.0 cm Inferior vena cava: 2.4 cm with no respiratory variation DOPPLER MEASUREMENTS: Very mild aortic regurgitation No aortic stenosis Aortic valve velocity: 95.4 cm/sec LVOT velocity: 69.5 cm/sec LVOT VTI: 9.3 cm No mitral regurgitation No mitral stenosis Mitral E velocity (pulse wave): Absent Mitral A velocity: 72.8 cm/sec Moderate tricuspid regurgitation Estimated right ventricular systolic pressure at least 86 mmHg assuming a right atrial pressure of at least 20 mmHg Moderate pulmonic regurgitation Pulmonary acceleration time: 79 ms consistent with severe pulmonary hypertension MITRAL ANNULAR TISSUE DOPPLER: E prime lateral: Absent E prime septal: 2.8 cm/sec DESCRIPTION: The rhythm was sinus. Image quality was adequate. No pericardial effusion. This was a 2-D, M-mode, color flow Doppler and pulse wave Doppler examination and included mitral annular tissue Doppler. CONCLUSIONS: 1. Moderately dilated right ventricle with very severe hypokinesis of the right ventricle. Severe pulmonary hypertension. Estimated right ventricle systolic pressure at least 86 mmHg assuming a right atrial pressure of at least 20 mmHg. 2. Inferior vena cava plethora with marked reduction of respiratory variation suggestive of elevated central venous pressure of at least 20 mmHg. 3. Normal left ventricle and diastolic dimension. Appearance of mild concentric left ventricle hypertrophy with the exception of the inferolateral wall at basal and mid ventricular levels. 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 Probably mild global hypokinesis of the remaining left ventricle segments. Absent mitral valve E wave on pulse wave Doppler consistent with LV diastolic dysfunction grade I (impaired relaxation filling pattern). 4. Mild aortic valve sclerosis of a 3-cuspid aortic valve. Very mild aortic regurgitation. 5. Moderate mitral annular calcification. No mitral stenosis or mitral regurgitation. 6. Structurally normal appearing tricuspid leaflets. Moderate tricuspid regurgitation. 7. No pericardial effusion. 8. Partial flattening of the intraventricular septum, especially during systole in keeping with pressure overload of the right ventricle. ADDITIONAL COMMENTS AND RECOMMENDATIONS: In the absence of a reversible cause of this patient's severe pulmonary hypertension, this patient's anticipated prognosis is poor.
[2019-11-28] MEDS ORDERED: FUROSEMIDE 100MG/10ML VIAL (J1940) IV SCH (12:00)
[2019-11-28 14:25] LABS: CALCIUM LEVEL 7.6 MG/DL (8.8-10.2); CK-MB VALUE MASS 6.9 NG/ML (<3.6); CREATININE FOR GFR 2.19 MG/DL (0.70-1.30); GLOMERULAR FILTRATION RATE 31.7 (>42); MB/CK RELATIVE INDEX 3.15 (< OR =4); POTASSIUM SERUM 4.9 MEQ/L (3.5-5.1); TROPONIN I 2.63 NG/ML (< 0.10)
[2019-11-28] MEDS ORDERED: DOBUTamine HCL 500,000 MCG in IV 1 EA IV SCH (15:00)
--- NOTE | 2019-11-28 15:53 | CCN ---
DATE: 11/28/2019 SUBJECTIVE: Mr. Castillo was seen and examined this morning. He remains intubated with mechanical ventilation. He is more awake and alert this morning. He continues to have soft blood pressure, however has remained vitally stable. His is pulseless electrical activity (PEA) arrest last night was likely related to anesthesia in the setting of severe pulmonary arterial hypertension. Currently, he has been weaned off of his Levophed and he is continued on vasopressin. He also has hydrocortisone for stress dose steroids every 8 hours. The patient has been on minimum sedation with his Versed due to his low pressures. There has been no further adverse events ever since his PEA arrest. OBJECTIVE: VITAL SIGNS: Temperature 98, pulse 84, respiratory rate 22, blood pressure 72/56, pulse oximetry 94%, intubated with mechanical ventilation FiO2 of 45. GENERAL: The patient is awake, alert. He is oriented. He does follow commands appropriately. He remains intubated with mechanical ventilation at this time. He is critically ill. HEENT: Atraumatic, normocephalic. Eyes are nonicteric. Trachea is midline. Endotracheal tube in place. CARDIOVASCULAR: The patient has normal S1, S2. There is regular rate and rhythm. No clicks, rubs or murmurs. PULMONARY: The patient has somewhat decreased breath sounds throughout. There is symmetric chest expansion. There is no rhonchi. There is some scattered crackles throughout. There is no wheezing. ABDOMEN: Soft. Nondistended. Nontender. No rebound tenderness or guarding. Normoactive bowel sounds. EXTREMITIES: The patient continued 3+ pitting edema in bilateral lower extremities. He has full and equal pulses bilateral upper and lower extremities. NEUROLOGIC: There is no focal neurological deficits. The patient is awake and alert. PSYCHIATRIC: Mood and affect appear appropriate. LABORATORY DATA: Hematology: White blood cell 19.3, hemoglobin 13.9, hematocrit 43.8, platelet count 215. Chemistries: Sodium 139, potassium 5.0, chloride 102, carbon dioxide 29, BUN 29 with creatinine 1.64, fasting glucose 348, calcium 7.9, phosphorus 5.2, magnesium 2.4, total bilirubin 2.6, AST 1028, ALT 879, alkaline phosphatase 232, troponin at 05:28 on 11/28/2019 3.42, repeat 3.47. N-terminal proBNP 6090. C-reactive protein 6.26. Procalcitonin pending. Microbiology: Blood culture pending. IMAGING: Chest x-ray demonstrating endotracheal tube approximately 3-4 cm above the quita. There is chronic fibrosis interstitial lung disease and somewhat increased interstitial markings on the left more so than right. STAT echocardiogram demonstrating a moderately dilated right ventricle with severe hypokinesis of the right ventricle. Severe pulmonary hypertension with estimated right ventricle systolic pressure of approximately 86. Inferior vena cava plethora and marked reduction with respiratory variation suggesting a central venous pressure of at least 20. There is a normal left ventricle and diastolic dimension. Mild concentric left ventricle hypertrophy with exception of inferolateral wall at basal and mid ventricular levels. He has akinesis of the basal and mid inferolateral segments of the left ventricle. There is no pericardial effusion. INPATIENT MEDICATIONS: - prednisone 20 mg daily - Lasix 60 mg every 8 hours IV - propofol - chlorhexidine oral rinse twice a day - Protonix 40 mg IV - atovaquone 1000 mg daily - aspirin 81 daily - vancomycin 750 mg every 12 hours - heparin 5000 units every 8 hours - Zosyn 2.25 grams every 12 hours - hydrocortisone 50 mg every 8 hours - Versed 2 mg every 15 minutes as needed for agitation - fentanyl 25 mcg every 30 minutes as needed for pain - Tylenol 650 mg every 6 hours as needed for pain or fever - vasopressin - Levophed - sliding scale insulin - MiraLAX one packet daily by mouth - Rozerem 8 mg at bedtime - Singulair 10 mg at bedtime - Roxicodone 5 mg every 4 hours as needed - Colace 100 mg twice a day - Plavix 75 mg daily by mouth - albuterol 2.5 ml - tiotropium inhalation daily ASSESSMENT AND PLAN: Mr. 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 He has a history of coronary artery disease status post four stents and diabetes who had presented to the [facility] originally with epistaxis. He had been placed on dual platelet therapy prior to this. He had a Rhino Rocket placed in his right nostril for hemostasis. Given the fact that he was on both Plavix and aspirin, ENT had moved him to the operating room (OR) to remove the Rhino Rocket. His procedure itself was uneventful. He did not receive any general anesthesia. However, he did receive some moderate sedation and some fluids during the procedure. Post procedure, the patient had developed difficulty breathing and subsequently developed PEA arrest. He did achieve return of spontaneous circulation (ROSC) after approximately 10 minutes. Post arrest, the patient was hypotensive requiring vasopressor therapy, including Levophed and vasopressin. He was intubated during his arrest and remains intubated currently. NEUROLOGIC: The patient currently follows all commands. He is responsive. He answers questions appropriately and he is able to respond. -The patient is intubated. He has Versed for sedation as well as fentanyl. He has been noted to be somewhat more uncomfortable today and was started on propofol. -Will give low dose propofol given the patient's already soft blood pressure. CARDIOVASCULAR: The patient has as history of coronary artery disease with stent placement times four. He also has a history of severe pulmonary hypertension with cor pulmonale and recent hospitalizations due to decompensated right heart failure with preserved ejection fraction. The patient had PEA arrest and ROSC was achieved in approximately 10 minutes. Post arrest, the patient had required Levophed and vasopressin. The patient's shock initially was felt to be possibly secondary to sepsis as he was having epistaxis and possible aspiration. However, his episode of PEA arrest may be secondary to his decompensated right heart failure in the setting of severe pulmonary hypertension. He currently continues to have soft blood pressures. His decompensation may have been secondary to the sedation that he had received during procedure or due to the fluid that he had received as well. He is very sensitive to fluid overload and this may have pushed him over the edge. He has had an echocardiogram completed, which demonstrated the pulmonary artery pressure of 86, as well as severe hypokinesis of the right atrium consistent with his severe pulmonary hypertension. Currently, the patient does have significant bilateral pitting edema and would benefit from diuresis. Post cardiac arrest, he had elevated troponin that was trended appears to be somewhat stable. Repeats are currently pending. His elevated troponin is likely secondary to demand ischemia from his PEA arrest. -Will continue trend cardiac enzymes. However, it appears to be secondary to his demand ischemia from his arrest and not due to a coronary event. His electrocardiogram (EKG) did not demonstrate any ST elevations or depressions status post arrest. -Echo has been obtained. Results reviewed. -The patient is currently continued on vasopressin for pressure support. He may need Levophed added as he appears to be uncomfortable and propofol was added for sedation. This may lower his blood pressure even further. He needs diuresis given his cor pulmonale. This will further lower his pressure, so he may need additional pressure support. May also consider dobutamine given that this is likely cardiogenic shock versus septic shock. -The patient will be started on 60 mg IV Lasix every 8 hours with close monitoring I's&O's as well as electrolytes. Given his severe pulmonary hypertension, he is very fluid sensitive and preload dependent will monitor closely. -The patient's lactic acid was 2.6, will trend. -Will continue the patient's aspirin and Plavix given his recent stent placement and history of coronary artery disease. -The patient's statin medication is currently being held due to transaminitis, which appears to be secondary to shock liver from his hypotensive episode secondary to his PEA arrest. -The patient is currently on stress dose steroids 50 mg every 8 for three days and will tapered down to prednisone after such. It appears that he has been on chronic prednisone for his pulmonary fibrosis and may not adequately respond to his hypotension. Therefore, we will continue hydrocortisone 50 mg every 8 hours for an additional two more days. PULMONARY: The patient has a history of chronic hypersensitivity pneumonitis with pulmonary fibrosis from bird fancier's lung and subsequently has chronic hypoxemic respiratory failure. He also has COPD. He is currently intubated after PEA arrest and on mechanical ventilation. -Will continue mechanical ventilation with PRVC settings with a rate of 18, a tidal volume of 480 and FiO2 of 45, PEEP of 8. Will wean down his FiO2 to maintain an oxygen saturation above 90%. -The patient will be continued on daily ABGs and chest x-rays while intubated, and will continue oral care while intubated as well. -The patient is receiving stress dose steroids due to chronic prednisone use for his pulmonary fibrosis. After 3 days, we will transition him to prednisone 20 mg by mouth. The patient was previously on Bactrim for PCP prophylaxis due to chronic steroid use. His Bactrim has been switched atovaquone given his renal dysfunction. His renal dysfunction is likely secondary to his episode of hypotension as well. -The patient was previously on Augmentin as he had leukocytosis and there was concern for aspiration when he had developed epistaxis. His coverage has been broadened to vancomycin and Zosyn in suspicion of possible septic shock. -Currently procalcitonin is pending, CRP elevated. He has remained afebrile. His episode of shock seems to be secondary to cardiogenic in nature. However, given his critical illness we will continue with broad-spectrum antibiotics for now and await procalcitonin. -The patient will continue home medications for COPD including Spiriva. -The patient is continued on DuoNebs. RENAL: The patient has a history of chronic kidney disease. Baseline creatinine appears to be around 1.5-1.6. He did develop acute kidney injury on his chronic kidney disease (CKD) likely in the setting of his shock secondary PEA cardiac arrest. The patient has a Patiño catheter in place. We will continue to monitor ins and outs. He is currently receiving Lasix due to volume overload. The patient was hyperkalemic post arrest. He was on potassium supplements as an outpatient. They were continued on admission. His hyperkalemia is likely secondary to cardiac arrest and the acidosis that was subsequently developed from such. We will continue to monitor. History of diabetes; the patient currently getting every 6 hours of sliding scale coverage. GASTROINTESTINAL: The patient status post arrest had transaminitis. His AST is 1208, ALT 879, alkaline phosphatase 232 suggesting likely shock liver from hypotension. However, his total bilirubin is 2.6. He may have a degree of chronic liver disease. However, he certainly has a component of shock liver on top of this. We will continue to monitor liver function. If he continues to have worsening of his liver function tests would recommend further imaging of the right upper quadrant, including an ultrasound. The patient has an orogastric tube placed. He is currently nothing by mouth. Tube is on low intermittent suction. Gastrointestinal (GI) prophylaxis is being managed with IV Protonix. MICROBIOLOGY: As stated previously, the patient is being treated empirically for suspected aspiration pneumonia from epistaxis, although it appears his rash is likely secondary to cardiogenic source in the setting of severe pulmonary arterial hypertension. His blood cultures are pending. Procalcitonin is pending. CRP is elevated, however it is a nonspecific inflammatory marker. The patient is continued on broad-spectrum antibiotics. DEEP VENOUS THROMBOSIS PROPHYLAXIS: The patient is currently on mechanical as well as heparin 5000 units every 8 hours and will continue and monitor for bleeding. CODE STATUS: The patient's code status has been updated on Medical Orders for Life Sustaining Treatment in the chart. The patient is currently a DO NOT RESUSCITATE with a trial of intubation. Total critical care time spent approximately 45 minutes. JEROME
[2019-11-28] MEDS ORDERED: metOLazone 2.5 MG TAB PO ONE (16:00)
[2019-11-28] MEDS: FUROSEMIDE injection 250 MG in D5W 225 ML IV SCH (16:35)
--- NOTE | 2019-11-28 18:35 | IPNPDOC ---
Text Note Date of Service The patient was seen on 11/28/19. NOTE Interim events: -had R nare packing/rhinorocket removed by Dr. Abraham yesterday late afternoon in the OR with mild versed/fentanyl while awake, did well --> unfortunately while in recovery he suffered cardiac arrest after noted difficulty breathing and declining BP--> required epi x 2, bicarb and calcium gluconate with ROSC recovered after a few minutes and intubated with Dr. Winters now onboard. Subjective: -Intubated Objective: Vitals: see below. Hemodynamically stable on low dose levophed, afebrile General: Obese, NAD Eyes: Anicteric, non injected, PERRLA, EOMI ENT: intubated, no blood around nares Neck: Thick, supple, no adenopathy, trachea midline Chest: Normal air movement, dry crackles at the bases, no wheezing, intubated Heart: Rate Normal, Regular Rhythm, Normal S1, Normal S2, no noted murmurs Abdomen: Obese, normal bowel sounds, soft,, NTND Extremity2+ pedal edema, WWP, 2+ DP pulses, no tenderness Skin: normal turgor and temperature no breakdown or lesion Neuro: responds to voice, following commands, spontaneously moving all extremities Labs: reviewed. WBC 19.3 Hgb 13.9 na 139 k 5 Cr 1.64 ABG 7.42/34/7/126 BCx pending 69-year-old M with COPD and pulmonary fibrosis on chronic 4L, severe pulmonary hypertension, hyperlipidemia, CHF, coronary artery disease s/p 4 stents, mostly recent ANNA was 4 months ago on ASA/plavix, DM who presented with persistent epistaxis s/p rhinorocket packing now removed with course c/b cardiac arrest with ROSC after 2 rounds of epi, now intubated, suspected 2/2 severe pulm HTN in the setting of volume overload without evidence of an acute ACS event, stable on the vent in the ICU. Acute on chronic hypoxemic respiratory failure: H/O chronic hypersensitivity pneumonitis with pulmonary fibrosis with chronic hypoxemic respiratory failure and COPD on 4L at rest at home, recently on a mask in the setting of nasal packing for epistaxis, now intubated after his cardiac arrest and on mechanical ventilation. - Vent setting per pulmonary, Dr. Winters on board Continue with mechanical ventilator with PRVC with settings of 480/25/75/8. - daily ABGs and chest x-rays while intubated per pul - Was given stress dose steroids after ROSC and will be continued on hydrocortisone 50 mg every 8 for three days and then will taper down to his home prednisone of 20 mg daily. - Was on Bactrim for PCP prophylaxis that was switched to atovaquone for concern for possible renal dysfunction. - Was switched from empiric augmentin for concern for possible aspiration pneumonia given his recent epistaxis and broadened to vancomycin and piptazo post cardiac arrest. - MRSA PCR and procalcitonin are pending - Continue Spiriva in place of Incruse. - duoneb TID ERIN on his CKD: in the setting of his shock and cardiac arrest. - Patiño catheter was strict I/Os - monitor electrolytes daily and replete/correct - Renally dose medications. Acute on Chronic HFpEF: with madie volume overload at this time and worsening hypoxemia with ongoing shock - History of CAD, severe pulmonary hypertension with cor pulmonale and HFpEF no w s/p PEA arrest with ROSC, now requiring vasopressor support likely in the setting of sepsis. -Prior TTE showed RVSP of 85 with RV systolic dysfunction and per pulm given fluid overload and concomitant infection may have had acute worsening of his pulmonary pressures which could have caused reduction in his cardiac output if he has intraventricular dependence on left ventricle (LV)filling precipitating the arrest. - Trops eventually downtrended, likely demand ischemia, EKG was non ischemic - Pending TTE - Continues on levophed at this time to goal MAP>65 - Was switched to IV Lasix, received 80 IV x 1 overnight, to be dosed as deemed appropriate by pulm - Restart his aspirin, continue with Plavix. CAD s/p 4 stents - continue with his aspirin, Plavix -Statin held in the setting of transaminitis, likely 2/2 shock liver in the setting of cardiac arrest Type 2 diabetes - continue holding home oral meds - sliding scale - FSBG Q6H while NPO - hypoglycemic protocol - D5 in fluids Acute Transaminitis and hyperbilirubinemia. -Likely a combination of hepatic congestion as well as shock liver given his cardiac arrest and shock. -Monitor daily DVT ppx: SCDs and TEDs GI ppx: protonix IV Diet: NPO Dispo: ICU Code Status: Overnight team confirmed with the patient's son with an updated MOLST on the chart that the patient is DNR with a trial of intubation. VS,Fishbone, I+O VS, Fishbone, I+O Laboratory Tests 11/27/19 19:35 11/27/19 20:40 11/28/19 05:28 Vital Signs Date Time Temp Pulse Resp B/P (MAP) Pulse Ox O2 Delivery O2 Flow Rate FiO2 11/28/19 06:08 119/83 11/28/19 04:21 50 11/28/19 04:18 25 Ventilator 11/28/19 04:13 93 11/28/19 04:00 67 11/28/19 04:00 97.6 11/27/19 18:45 8 I&O- Last 24 Hours up to 6 AM 11/28/19 06:00 Intake Total 1872.5 ml Output Total 2050 ml Balance -177.5 ml JACQUI PEREZ MD Nov 28, 2019 09:31
--- NOTE | 2019-11-28 19:30 | ECGEPIP ---
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
--- NOTE | 2019-11-28 19:33 | ECGEPIP ---
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
--- NOTE | 2019-11-28 19:36 | ECGEPIP ---
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
--- NOTE | 2019-11-28 19:44 | ECGEPIP ---
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
[2019-11-28] MEDS: RAMELTEON 8 MG TAB (ROZEREM) PO SCH (21:00)
[2019-11-28] MEDS: MONTELUKAST 10 MG TAB PO SCH (21:00)
--- NOTE | 2019-11-28 21:33 | RO ---
DATE OF PROCEDURE: 11/26/2019 PREPROCEDURE DIAGNOSIS: Right epistaxis. POSTPROCEDURE DIAGNOSIS: Right epistaxis and anterior septal perforation. PROCEDURE: Removal of the right Rhino Rocket, nasal endoscopy and endoscopic debridement of the right nasal cavity. SURGEON: Seymour Abraham MD RESIDENTIAL PROPERTY CONSULTANT: ANESTHESIA: None. HISTORY OF PRESENT ILLNESS: This is a 69-year-old man who presented to the emergency department last [place] for a persistent right epistaxis. Hemostasis was eventually achieved with placing a Rhino Rocket. The patient was admitted to the hospital due to acute and chronic respiratory failure. Past medical history also significant for placement of a cardiac stent done about 4-1/2 months ago. The Rhino Rocket was removed and replaced on Monday. As such, I discussed with the patient removal of the Rhino Rocket in the operating room. Risks of surgery including persistent bleeding due to patient requiring ongoing Plavix, infection, acute cardiopulmonary failure, stroke, and have been discussed with the patient. He understood and consented to the procedure. Medical clearance had also been done preoperatively. DESCRIPTION OF PROCEDURE: The patient was identified in preop holding and had the right nostril marked. He was brought to the operating room in stable condition. The patient was then placed in the upright position on the operating table. The patient remained conscious and talkative throughout the entire case. The set up for endoscopic endoscopy as well as control of epistaxis had been set up. Once the set up had been completed, I deflated the balloon to the Rhino Rocket. 10 mL of air was deflated from the Rhino Rocket. The Rhino Rocket was then successfully removed. No active bleeding was noted upon removal of the Rhino Rocket. Visual inspection of the nasal cavity revealed anterior nasal septal perforation. Old clots and nasal secretions noted throughout the right nasal cavity. The nasal mucosa was macerated consistent with recent placement of the Rhino Rocket. Using the 30-degree nasal endoscope, the right nasal cavity was inspected. No active bleeder was noted. Using the Garcia suction, the right nasal cavity was debrided clear of old crust and nasal secretions. At this time, the Gelfoam coated with bacitracin was inserted into the right nostril. The patient tolerated the procedure well throughout the entire process of removal of the Rhino Rocket. He was then brought to the recovery room in stable condition. JEROME
[2019-11-29] VITALS (39 sets, daily range): BP systolic 77–121; BP diastolic 59–84; O2SAT 94–97
[2019-11-29] MEDS: HumaLOG INSULIN (NovoLOG) PER UNIT SC SCH ×4 (00:24→21:41)
[2019-11-29] MEDS: PIPERACILLIN/TAZOBACTAM SOD 2.25 GM in D5W MINI-BAG PLUS 50 ML IV SCH (03:41)
[2019-11-29 05:43] LABS: ABG HCO3 27.9 MEQ/L (22.0-26.0); ABG O2 SATURATION 98.7 % (95.0-99.0); ABG PARTIAL PRESSURE CO2 39.6 mmHg (35.0-45.0); ABG PARTIAL PRESSURE O2 139.1 mmHg (75.0-100.0); ABG STANDARD HCO3 28.1 MEQ/L (22.0-26.0); ABG TOTAL CO2 29.1 MEQ/L (23.0-31.0); ABG pH (ARTERIAL) 7.466 UNITS (7.350-7.450)
[2019-11-29] MEDS: NOREPINEPHRINE BITARTRATE 8 MG in D5W 492 ML IV SCH (06:00)
[2019-11-29] MEDS: SLF 3 ML SYR IV SCH ×3 (06:00→21:42)
[2019-11-29 06:53] LABS: BASO % 0.1 % (0.0-1.0); HEMATOCRIT 40.6 % (42.0-52.0); LYMPH # 1.2 10^3/uL (1.5-5.0); LYMPH % 6.4 % (24.0-44.0); MEAN CORPUSCULAR HEMOGLOBIN 30.2 pg (27.0-33.0); MEAN CORPUSCULAR VOLUME 94.2 fl (80.0-96.0); MONO # 1.1 10^3/uL (0.0-0.8); MONO % 5.9 % (0.0-5.0); NEUTROPHILS # 16.5 10^3/uL (1.5-8.5); NEUTROPHILS % 86.6 % (36.0-66.0); PLATELET COUNT, AUTOMATED 140 10^3/uL (150-450); RED BLOOD COUNT 4.31 10^6/uL (4.30-6.10); WHITE BLOOD COUNT 19.1 10^3/uL (4.0-10.0)
[2019-11-29] MEDS: HYDROCORTISONE 100 MG/2 ML VIAL (J1720 PER 1) IV SCH ×3 (07:05→21:41)
[2019-11-29] MEDS: HEPARIN SOD (PORCINE) 5000UNITS/ML VIAL (J1644 PER 1000UNITS) SQ SCH ×3 (07:05→21:42)
[2019-11-29] MEDS: ALBUTEROL SULFATE 2.5 MG/0.5 ML INH NEB SOLN INH SCH ×3 (07:38→19:17)
[2019-11-29 07:41] LABS: ALBUMIN 2.6 GM/DL (3.2-5.2); BILIRUBIN,TOTAL 2.1 MG/DL (0.2-1.0); CALCIUM LEVEL 8.1 MG/DL (8.8-10.2); CREATININE FOR GFR 2.08 MG/DL (0.70-1.30); GLOMERULAR FILTRATION RATE 33.7 (>42); POTASSIUM SERUM 3.5 MEQ/L (3.5-5.1); TOTAL PROTEIN 5.8 GM/DL (6.4-8.2); VANCOMYCIN LEVEL TROUGH 16.5 UG/ML (10.0-20.0)
--- NOTE | 2019-11-29 07:43 | REP ---
Clinical: Intubation. Comparison: 11/28/2019. Findings: Endotracheal tube 3 cm above the quita. Nasogastric tube courses below left hemidiaphragm. Cardiomegaly with diffuse fibrosis and chronic interstitial changes again noted and essentially unchanged. No new acute process identified. No obvious effusion. No pneumothorax. Skeletal structures stable. Impression: Stable cardiomegaly and chronic changes. No new acute process appreciated. Electronically Signed by Bill Cartwright MD 11/29/2019 07:33 A
[2019-11-29] MEDS: TIOTROPIUM INHALER/CAPSULE (SPIRIVA) INH SCH (08:00)
[2019-11-29] MEDS: VANCOMYCIN HCL 750 MG, VIAL MATE ADAPTER 1 EACH in D5W 250 ML IV SCH (08:12)
[2019-11-29] MEDS: CHLORHEXIDINE GLUCONATE 0.12 % 15ML UDC (PERIDEX ORAL RINSE) MT SCH (08:27)
[2019-11-29] MEDS: BENZONATATE 100 MG CAP PO SCH ×2 (08:28→20:14)
[2019-11-29] MEDS: ASPIRIN 81 MG CHEW TABLET GT SCH (08:49)
[2019-11-29] MEDS: VITAMIN D 1,000 INTERNATIONAL UNITS TABLET PO SCH (08:49)
[2019-11-29] MEDS: PANTOPRAZOLE 40MG VIAL (C9113 PER 1) IV SCH (08:49)
[2019-11-29] MEDS: ATOVAQUONE SUSP 750MG/5ML 210 ML BTL PO SCH (08:49)
[2019-11-29] MEDS: CLOPIDOGREL 75 MG TAB PO SCH (08:52)
[2019-11-29] MEDS: SODIUM CHLORIDE NASAL 0.65% SPRAY BTL (OCEAN) SCH ×3 (08:52→20:14)
[2019-11-29] MEDS ORDERED: KCL 10MEQ IN STERILE WATER 100ML As Ordered ONE (09:32)
[2019-11-29] MEDS: KCL 10MEQ/100ML SWI (KRUN) 10 MEQ in IV 1 EA IV SCH ×3 (09:35→11:46)
[2019-11-29] MEDS: MIRALAX *UNIT DOSE* 17GM PACKET PO SCH (09:58)
[2019-11-29 10:25] LABS: APPEARANCE, URINE CLEAR (CLEAR); BACTERIA, URINE AUTO NEGATIVE (NEGATIVE); BILIRUBIN, URINE AUTO NEGATIVE (NEGATIVE); BLOOD, URINE BLOOD 1+ (NEGATIVE); COLOR, URINE STRAW (YELLOW); GLUCOSE, URINE (UA) AUTO 1+ mg/dL (NEGATIVE); KETONE, URINE AUTO NEGATIVE (NEGATIVE); LEUKOCYTE ESTERASE, URINE AUTO NEGATIVE (NEGATIVE); MUCUS, URINE SMALL (NEGATIVE); NITRITE, URINE AUTO NEGATIVE (NEGATIVE); PROTEIN, URINE AUTO NEGATIVE (NEGATIVE); RBC, URINE AUTO 3 /HPF (0-3); SPECIFIC GRAVITY URINE AUTO 1.005 (1.002-1.035); SQUAMOUS EPITHELIAL CELL UR AU 0 /HPF (0-6); WBC, URINE AUTO 0 /HPF (0-3)
[2019-11-29 13:35] LABS: CALCIUM LEVEL 8.3 MG/DL (8.8-10.2); CREATININE FOR GFR 1.98 MG/DL (0.70-1.30); GLOMERULAR FILTRATION RATE 35.7 (>42); POTASSIUM SERUM 3.9 MEQ/L (3.5-5.1)
[2019-11-29] MEDS: FUROSEMIDE injection 250 MG in D5W 225 ML IV SCH (14:21)
[2019-11-29] MEDS: ACETAMINOPHEN TAB 650MG DOSE (2X325MG) PO PRN (14:32)
--- NOTE | 2019-11-29 16:02 | ECGEPIP ---
[facility] Test Date: 2019-11-29 Pat Name: IVAN BARTLETT Department: Room: [place] [address] Gender: Male [employer]: MYNOR : 1950 Requested By: Pito Parker [facility] Order Number: [id number] Reading MD: Gibson Beverly Measurements Intervals [place] Rate: 103 P: 59 [place]: 145 QRS: 100 QRSD: 128 T: -1 QT: 352 QTc: 462 Interpretive Statements Sinus tachycardia with PACs Left atrial enlargement Indeterminate QRS axis Right bundle branch block No significant change when compared to prior tracing of 11/28/2019 Electronically Signed on 11-29-2019 16:02:05 EDT by Gibson Beverly
--- NOTE | 2019-11-29 16:09 | CCN ---
DATE: 11/29/2019 CRITICAL CARE NOTE: The patient is seen in the intensive care unit intubated, mechanically ventilated, critically ill. He is a 69-year-old male with advanced oxygen-dependent pulmonary fibrosis, coronary artery disease who developed rhinorrhagia and following the removal of packing device in the operating room by ENT suffered a cardiopulmonary arrest with pulseless electrical activity. He was resuscitated. The return of spontaneous circulation was approximately 10 minutes. The resuscitation occurred 24 hours ago. This is hospital day #4, endotracheal tube day #2. At bedside, he is ill-appearing. His vital signs are temperature 97, pulse rate 99, respirations 16, blood pressure 111/78, currently off pressors. Intake and output for the past 24 hours 2837 in, 1480 out, since midnight 668 in, 1027 out. He is sedate with Versed. There is an endotracheal tube at 32 cm, #8 tube. An orogastric tube is in position. His neck is supple. There is no adenopathy. Jugular veins are quite distended. Carotid upstroke is sluggish. Heart sounds are regular without appreciable murmur. Breath sounds are diminished with bilateral crepitance. Abdomen is soft. Bowel sounds are appreciated bilaterally. Extremities show edema. Peripheral pulses are diminished. DIAGNOSTIC STUDIES: His sodium is 143, potassium is down at 3.5, chloride 101, CO2 is up at 33, BUN is 38, creatinine is down at 2.08, glucose is 319. His white cell count is down to 19.1, hemoglobin is 13, hematocrit 40.6, platelet count is down to 140. His arterial blood gases show pH 7.46, pCO2 39, pO2 139 on mechanical ventilatory support. Serum lactate yesterday was down to 2.8. His troponin on 11/28/2019 was 2.63. AST is elevated 2044, ALT is quite elevated at 2275. His albumin is 2.6, bilirubin is 2.1. Procalcitonin on 11/27/2019 was 0.1. Chest x-ray was reviewed and shows diffuse bilateral interstitial prominence. No obvious infiltrate is appreciated. The report is pending. An echocardiogram was performed, which showed very elevated right-sided heart pressures and evidence of pulmonary hypertension, biventricular dysfunction. Blood cultures on 11/27/2019 were negative. On review of medications, this is day #2 of vancomycin, day #2 of piperacillin. He is on Mepron as prophylaxis. He is on his second day of stress dose steroids, hydrocortisone 50 mg every 8. He is receiving inhaled albuterol and Spiriva. He receives aspirin 81 mg day, Plavix, prednisone 20 mg a day. Lasix is in drip form now. He is on a low-dose dobutamine drip. Levophed has been titrated off. Vasopressin has been titrated off. There are orders for Rozerem and Singulair. The primary problem requiring critical attention is acute respiratory failure. We will change his mechanical ventilatory settings from PRVC to pressure support, reassess respiratory status and mechanics and proceed with extubation. His gas exchange is acceptable. Cardiogenic shock status post pulseless electrical activity arrest. His blood pressures have improved. Pressors have been weaned. His dose of dobutamine is quite low. Will discontinue the dobutamine at this point as his urine output has picked up suggesting adequate renal perfusion. Acute kidney injury. I suspect that this is a cardiorenal syndrome related to his arrest. However, will obtain a urinalysis (UA) to rule out acute tubular necrosis and continue with the Lasix drip as his BNP earlier in the hospital stay would suggest that he has substantial volume overload. This is also supported by his echocardiogram results. Pulmonary hypertension. Will continue with diuresis. Cardiac ischemia with increased troponins. I will recheck an electrocardiogram today. He is not a candidate for cardiac interventions. Shock liver. His blood pressure is somewhat better. His liver function studies are very elevated. Will continue to follow liver function testing. Rhinorrhagia. There has been no recurrence since removal of the balloon occluder. He does require aspirin and Plavix for coronary artery disease. Hypokalemia. I will replace and recheck. Will also check a magnesium level. Thrombocytopenia, etiology is unclear, possibly related to antibiotics. I will discontinue them at this point because there is no clear evidence for sepsis or infection. Hypoadrenalism secondary to chronic steroid use. Stress doses of steroids are in place. Deep venous thrombosis (DVT) prophylaxis being addressed with subcutaneous heparin. Ulcer prophylaxis being addressed with IV Protonix. Glycemic control is less than optimal, however, given the stress dose steroids will continue to closely monitor fingersticks and use subcutaneous insulin as needed. The patient's condition is quite critical. Prognosis is guarded. 1 hour and 57 minutes was spent in the provision of bedside critical care and coordination.
--- NOTE | 2019-11-29 17:13 | IPNPDOC ---
Text Note Date of Service The patient was seen on 11/29/19. NOTE Interim events: -Extubated this morning, doing well nw on 40% aerosol mask -Echo showed very elevated right-sided heart pressures, pulmonary hypertension, biventricular dysfunction. -had been switched from levo/vaso to dobutamine that has been weaned off now. Was also on a lasix drip that is now off -Vanc/piptazo have also been discontinued now -Has been kept on stress dose 40hydrocortisone Q8H Subjective: -Spoke with him this morning, conversational, hopeful Objective: Vitals: see below. Hemodynamically stable on low dose levophed, afebrile General: Obese, NAD Eyes: Anicteric, non injected, PERRLA, EOMI ENT: intubated, no blood around nares Neck: Thick, supple, no adenopathy, trachea midline Chest: Normal air movement, dry crackles at the bases, no wheezing, no rhonchi Heart: Rate Normal, Regular Rhythm, Normal S1, Normal S2, no noted murmurs Abdomen: Obese, normal bowel sounds, soft,, NTND Extremity: much improved LE edema, WWP, 2+ DP pulses, no tenderness Skin: normal turgor and temperature no breakdown or lesion Neuro: responds to voice, following commands, spontaneously moving all extremities Labs: reviewed. WBC 19.1 Hgb 13.7 Cr 1.98 (now improving) BCx negative 69-year-old M with COPD and pulmonary fibrosis on chronic 4L, severe pulmonary hypertension, hyperlipidemia, CHF, coronary artery disease s/p 4 stents, mostly recent ANNA was 4 months ago on ASA/plavix, DM who presented with persistent epistaxis s/p rhinorocket packing now removed with course c/b cardiac arrest requiring intubation, now recovering, off pressors and extubated with declining O2 requirements. Acute on chronic hypoxemic respiratory failure: H/O chronic hypersensitivity pneumonitis with pulmonary fibrosis with chronic hypoxemic respiratory failure and COPD on 4L at rest at home, recently on a mask in the setting of nasal packing for epistaxis, now intubated after his cardiac arrest and on mechanical ventilation. - s/p extubation, doing well now on 40$ aerosol mask - On stress dose steroids of hydrocortisone 50 mg every 8 for three days with plan to taper down to his home prednisone of 20 mg daily. - Was on Bactrim for PCP prophylaxis that was switched to atovaquone for concern for possible renal dysfunction. - Vanc piptazo were discontinued - Continue Spiriva in place of Incruse. - duoneb TID ERIN on his CKD: in the setting of his shock and cardiac arrest. - Patiño catheter was strict I/Os - monitor electrolytes daily and replete/correct - Renally dose medications. Acute on Chronic HFpEF: with madie volume overload at this time and worsening hypoxemia with ongoing shock - History of CAD, severe pulmonary hypertension with cor pulmonale and HFpEF now s/p PEA arrest with ROSC, now requiring vasopressor support likely in the setting of sepsis. -TTE showed elevated RVSP in the 80s with RV systolic dysfunction and per pulm given fluid overload and concomitant infection may have had acute worsening of his pulmonary pressures which could have caused reduction in his cardiac output if he has intraventricular dependence on left ventricle (LV)filling precipitating the arrest. - Trops eventually downtrended - Continues on levophed at this time to goal MAP>65 - s/p Lasix gtt with much improved LE edema - continue his aspirin/ Plavix. CAD s/p 4 stents - continue with his aspirin, Plavix -Statin held in the setting of transaminitis, likely 2/2 shock liver in the setting of cardiac arrest Type 2 diabetes - continue holding home oral meds - sliding scale - FSBG Q6H while NPO - hypoglycemic protocol - D5 in fluids Acute Transaminitis and hyperbilirubinemia. -Likely a combination of hepatic congestion as well as shock liver given his cardiac arrest and shock. DVT ppx: SCDs and TEDs GI ppx: protonix IV Diet: NPO, swallow eval for diet Dispo: ICU, likely down to PCU by tomorrow Code Status: Overnight team confirmed with the patient's son with an updated MOLST on the chart that the patient is DNR with a trial of intubation. VS,Fishbone, I+O VS, Fishbone, I+O Laboratory Tests 11/29/19 06:33 11/29/19 12:57 Vital Signs Date Time Temp Pulse Resp B/P (MAP) Pulse Ox O2 Delivery O2 Flow Rate FiO2 11/29/19 16:00 97.2 104 16 102/68 (79) 90 Aerosol Mask 40 11/29/19 13:09 5.0 I&O- Last 24 Hours up to 6 AM 11/29/19 05:59 Intake Total 2527.5 ml Output Total 2055 ml Balance 472.5 ml JACQUI PEREZ MD November 29, 2019 17:13
[2019-11-29] MEDS ORDERED: HumaLOG INSULIN (NovoLOG) PER UNIT SC SCH (17:30)
[2019-11-29] MEDS: ATORVASTATIN 20 MG TAB PO SCH (20:14)
[2019-11-29] MEDS: oxyCODONE 5MG TAB PO PRN (20:17)
[2019-11-29] MEDS: DOCUSATE SODIUM 100 MG CAP PO PRN (20:40)
[2019-11-29] MEDS ORDERED: metOLazone 2.5 MG TAB PO ONE (21:30)
[2019-11-30] VITALS (23 sets, daily range): BP systolic 93–122; BP diastolic 61–79; O2SAT 90
[2019-11-30 02:00] LABS: CALCIUM LEVEL 7.5 MG/DL (8.8-10.2); CREATININE FOR GFR 2.14 MG/DL (0.70-1.30); GLOMERULAR FILTRATION RATE 32.6 (>42); MAGNESIUM LEVEL 2.3 MG/DL (1.8-2.4); POTASSIUM SERUM 3.6 MEQ/L (3.5-5.1)
[2019-11-30] MEDS ORDERED: POTASSIUM CHLORIDE 10 MEQ SR TABLET PO ONE ×2 (02:30→07:00)
[2019-11-30] MEDS: HYDROCORTISONE 100 MG/2 ML VIAL (J1720 PER 1) IV SCH (05:02)
[2019-11-30] MEDS: oxyCODONE 5MG TAB PO PRN ×2 (05:02→18:04)
[2019-11-30] MEDS: HEPARIN SOD (PORCINE) 5000UNITS/ML VIAL (J1644 PER 1000UNITS) SQ SCH (05:02)
[2019-11-30] MEDS: SLF 3 ML SYR IV SCH ×3 (05:02→21:28)
[2019-11-30 05:33] LABS: BASO % 0.1 % (0.0-1.0); HEMATOCRIT 41.4 % (42.0-52.0); LYMPH # 1.9 10^3/uL (1.5-5.0); LYMPH % 9.8 % (24.0-44.0); MEAN CORPUSCULAR HGB CONC 31.4 g/dl (32.0-36.5); MEAN CORPUSCULAR VOLUME 92.4 fl (80.0-96.0); MONO # 1.3 10^3/uL (0.0-0.8); MONO % 6.4 % (0.0-5.0); NEUTROPHILS # 16.3 10^3/uL (1.5-8.5); NEUTROPHILS % 82.5 % (36.0-66.0); PLATELET COUNT, AUTOMATED 141 10^3/uL (150-450); RED BLOOD COUNT 4.48 10^6/uL (4.30-6.10); WHITE BLOOD COUNT 19.7 10^3/uL (4.0-10.0)
[2019-11-30 06:00] LABS: ABG BASE EXCESS 7.7 (-2.0-2.0); ABG HCO3 31.6 MEQ/L (22.0-26.0); ABG PARTIAL PRESSURE CO2 41.4 mmHg (35.0-45.0); ABG STANDARD HCO3 31.4 MEQ/L (22.0-26.0); ABG TOTAL CO2 32.8 MEQ/L (23.0-31.0)
[2019-11-30 06:13] LABS: ALBUMIN 2.7 GM/DL (3.2-5.2); CALCIUM LEVEL 7.7 MG/DL (8.8-10.2); CREATININE FOR GFR 2.02 MG/DL (0.70-1.30); GLOMERULAR FILTRATION RATE 34.8 (>42); POTASSIUM SERUM 3.5 MEQ/L (3.5-5.1); TOTAL PROTEIN 5.4 GM/DL (6.4-8.2)
[2019-11-30 07:38] LABS: MAGNESIUM LEVEL 2.2 MG/DL (1.8-2.4)
[2019-11-30] MEDS: ALBUTEROL SULFATE 2.5 MG/0.5 ML INH NEB SOLN INH SCH ×3 (07:46→19:54)
[2019-11-30] MEDS: TIOTROPIUM INHALER/CAPSULE (SPIRIVA) INH SCH (07:46)
--- NOTE | 2019-11-30 08:01 | REP ---
Clinical: Intubation . Comparison: 11/29/2019, 11/28/2019 . Findings: The mediastinum and cardiac silhouette are stable with cardiomegaly again noted. Lung martinez demonstrate stable diffuse chronic fibrosis/scarring. No effusion. No pneumothorax. No obvious new acute process. Skeletal structures are stable. Impression: Stable cardiomegaly and chronic fibrosis/interstitial disease. No new acute process identified. Electronically Signed by Bill Cartwright MD 11/30/2019 07:52 A
[2019-11-30] MEDS: PANTOPRAZOLE 20 MG TAB PO SCH (08:45)
[2019-11-30] MEDS: ATOVAQUONE SUSP 750MG/5ML 210 ML BTL PO SCH (08:45)
[2019-11-30] MEDS: ASPIRIN 81 MG CHEW TABLET GT SCH (08:45)
[2019-11-30] MEDS: CLOPIDOGREL 75 MG TAB PO SCH (08:45)
[2019-11-30] MEDS: MIRALAX *UNIT DOSE* 17GM PACKET PO SCH (08:45)
[2019-11-30] MEDS: VITAMIN D 1,000 INTERNATIONAL UNITS TABLET PO SCH (08:45)
[2019-11-30] MEDS: HumaLOG INSULIN (NovoLOG) PER UNIT SC SCH ×4 (08:48→21:27)
[2019-11-30] MEDS: FUROSEMIDE injection 250 MG in D5W 225 ML IV SCH (08:49)
[2019-11-30] MEDS: SODIUM CHLORIDE NASAL 0.65% SPRAY BTL (OCEAN) SCH ×3 (08:50→21:26)
[2019-11-30] MEDS: ACETAMINOPHEN TAB 650MG DOSE (2X325MG) PO PRN ×3 (08:54→21:28)
[2019-11-30] MEDS ORDERED: KCL 10MEQ/100ML SWI (KRUN) 10 MEQ in IV 1 EA IV SCH (09:00)
[2019-11-30 14:32] LABS: CREATININE FOR GFR 2.32 MG/DL (0.70-1.30); GLOMERULAR FILTRATION RATE 29.7 (>42); MAGNESIUM LEVEL 2.2 MG/DL (1.8-2.4)
--- NOTE | 2019-11-30 16:49 | IPNPDOC ---
Text Note Date of Service The patient was seen on 11/30/19. NOTE Subjective: -Doing well, currently on 60% aerosol mask -Patient articulates that he wants to be FULLCODE despite team's conversation with son while he was intubated that made him DNR with trial intubation. Will change MOLST to reflect his wishes and communicate this with family Objective: Vitals: see below. Hemodynamically stable off pressors, afebrile General: Obese, NAD Eyes: Anicteric, non injected, PERRLA, EOMI ENT: intubated, no blood around nares Neck: Thick, supple, no adenopathy, trachea midline Chest: Normal air movement, dry crackles at the bases, no wheezing, no rhonchi Heart: Rate Normal, Regular Rhythm, Normal S1, Normal S2, no noted murmurs Abdomen: Obese, normal bowel sounds, soft,, NTND Extremity: much improved LE edema, WWP, 2+ DP pulses, no tenderness Skin: normal turgor and temperature no breakdown or lesion Neuro: responds to voice, following commands, spontaneously moving all extremities Labs: reviewed. WBC 19 stable Hgb 13 Cr 2.02 stable BCx negative Assessment 69-year-old M with COPD and pulmonary fibrosis on chronic 4L, severe pulmonary hypertension, hyperlipidemia, CHF, coronary artery disease s/p 4 stents, mostly recent ANNA was 4 months ago on ASA/plavix, DM who presented with persistent epistaxis s/p rhinorocket packing now removed with course c/b cardiac arrest requiring intubation, now extubated and recovering, off pressors on lasix gtt with stable higher than baseline O2 requirements at this time. Plan Acute on chronic hypoxemic respiratory failure: H/O chronic hypersensitivity pneumonitis with pulmonary fibrosis with chronic hypoxemic respiratory failure and COPD on 4L at rest at home, recently on a mask in the setting of nasal packing for epistaxis, now intubated after his cardiac arrest and on mechanical ventilation. - s/p extubation, doing well now on 60% aerosol mask - Now back on home prednisone of 20 mg daily. - Was on Bactrim for PCP prophylaxis that was switched to atovaquone for concern for possible renal dysfunction. - No empiric antibiotics at this time - Continue Spiriva in place of Incruse. - duoneb TID ERIN on his CKD: in the setting of his shock and cardiac arrest. - strict I/Os - monitor electrolytes daily and replete - K3.5 this AM, got 80meq PO, dc'd the added 30meq ordered IV, will check PM BMP given lasix gtt - Renally dose medications. Acute on Chronic HFpEF: with madie volume overload at this time and acute on chronic hypoxemia - History of CAD, severe pulmonary hypertension with cor pulmonale and HFpEF now s/p PEA arrest with ROSC, now requiring vasopressor support likely in the setting of sepsis. -TTE showed elevated RVSP in the 80s with RV systolic dysfunction and per pulm given fluid overload and concomitant infection may have had acute worsening of his pulmonary pressures which could have caused reduction in his cardiac output if he has intraventricular dependence on left ventricle (LV)filling precipitating the arrest. - Trops eventually downtrended - continues on lasix gtt with improving LE edema - continue his aspirin/ Plavix. CAD s/p 4 stents - continue with his aspirin, Plavix -Statin held in the setting of transaminitis, likely 2/2 shock liver in the setting of cardiac arrest Type 2 diabetes - continue holding home oral meds - sliding scale - FSBG Q6H while NPO - hypoglycemic protocol - start levemir 6U QHS for hyperglycemia Acute Transaminitis and hyperbilirubinemia: improving -Likely a combination of hepatic congestion as well as shock liver given his cardiac arrest and shock. -continue to monitor, avoid hepatotoxic meds DVT ppx: SCDs and TEDs GI ppx: protonix PO Diet: consistent carb Dispo: ICU Code Status: patient requesting FULLCODE status VS,Fishbone, I+O VS, Fishbone, I+O Laboratory Tests 11/29/19 12:57 11/30/19 01:13 11/30/19 04:55 Vital Signs Date Time Temp Pulse Resp B/P (MAP) Pulse Ox O2 Delivery O2 Flow Rate FiO2 11/30/19 07:48 90 Aerosol Mask 60 11/30/19 06:00 79 23 94/61 (72) 11/30/19 03:00 97.3 11/29/19 13:09 5.0 I&O- Last 24 Hours up to 6 AM 11/30/19 05:59 Intake Total 3397 ml Output Total 5075 ml Balance -1678 ml JACQUI PEREZ MD November 30, 2019 08:44
[2019-11-30] MEDS: DOCUSATE SODIUM 100 MG CAP PO PRN (16:59)
[2019-11-30] MEDS ORDERED: LEVEMIR (INSULIN DETEMIR) 1 UNITS/0.01ML SC SCH (21:00)
[2019-11-30] MEDS: ATORVASTATIN 20 MG TAB PO SCH (21:28)
[2019-12-01] VITALS (31 sets, daily range): BP systolic 88–127; BP diastolic 60–82; O2SAT 88–92
[2019-12-01] MEDS: oxyCODONE 5MG TAB PO PRN ×3 (00:06→20:15)
[2019-12-01] MEDS: FUROSEMIDE injection 250 MG in D5W 225 ML IV SCH ×2 (00:40→15:55)
[2019-12-01 04:19] LABS: BASO % 0.2 % (0.0-1.0); EOS # 0.3 10^3/uL (0.0-0.5); EOS % 1.6 % (0.0-3.0); HEMATOCRIT 43.7 % (42.0-52.0); HEMOGLOBIN 14.4 g/dl (13.5-17.5); LYMPH # 3.5 10^3/uL (1.5-5.0); LYMPH % 19.5 % (24.0-44.0); MEAN CORPUSCULAR HEMOGLOBIN 29.8 pg (27.0-33.0); MEAN CORPUSCULAR VOLUME 90.5 fl (80.0-96.0); MONO # 1.7 10^3/uL (0.0-0.8); MONO % 9.3 % (0.0-5.0); NEUTROPHILS # 12.3 10^3/uL (1.5-8.5); NEUTROPHILS % 68.4 % (36.0-66.0); PLATELET COUNT, AUTOMATED 154 10^3/uL (150-450); RED BLOOD COUNT 4.83 10^6/uL (4.30-6.10)
[2019-12-01 04:56] LABS: ALBUMIN 2.8 GM/DL (3.2-5.2); BILIRUBIN,TOTAL 2.2 MG/DL (0.2-1.0); CALCIUM LEVEL 8.2 MG/DL (8.8-10.2); CREATININE FOR GFR 1.77 MG/DL (0.70-1.30); GLOMERULAR FILTRATION RATE 40.6 (>42); PHOSPHORUS LEVEL 3.6 MG/DL (2.5-4.9); POTASSIUM SERUM 2.9 MEQ/L (3.5-5.1); TOTAL PROTEIN 5.7 GM/DL (6.4-8.2)
[2019-12-01 05:13] LABS: MAGNESIUM LEVEL 2.2 MG/DL (1.8-2.4)
[2019-12-01] MEDS ORDERED: KCL 10MEQ/100ML SWI (KRUN) 10 MEQ in IV 1 EA IV ONE (05:15)
[2019-12-01] MEDS ORDERED: POTASSIUM CHLORIDE 10 MEQ SR TABLET PO ONE ×2 (05:15→19:15)
[2019-12-01] MEDS: SLF 3 ML SYR IV SCH ×3 (05:16→22:00)
[2019-12-01] MEDS: TIOTROPIUM INHALER/CAPSULE (SPIRIVA) INH SCH (07:15)
[2019-12-01] MEDS: ALBUTEROL SULFATE 2.5 MG/0.5 ML INH NEB SOLN INH SCH ×3 (07:15→20:16)
--- NOTE | 2019-12-01 07:43 | REP ---
Clinical: History of extubation. Comparison: 11/30/2019. Findings: Mediastinum and cardiac silhouette are stable. Diffuse fibrosis and chronic interstitial changes with scattered scarring again identified and unchanged. Subtle superimposed acute atelectasis cannot be excluded. No focal consolidation. No effusion. No pneumothorax. Skeletal structures intact and stable. Impression: Chronic stable changes. No definite acute process. Electronically Signed by Bill Cartwright MD 12/01/2019 07:35 A
[2019-12-01] MEDS: MIRALAX *UNIT DOSE* 17GM PACKET PO SCH (08:35)
[2019-12-01] MEDS: PANTOPRAZOLE 20 MG TAB PO SCH (08:35)
[2019-12-01] MEDS: CLOPIDOGREL 75 MG TAB PO SCH (08:35)
[2019-12-01] MEDS: ASPIRIN 81 MG CHEW TABLET GT SCH (08:36)
[2019-12-01] MEDS: predniSONE 20 MG TAB PO SCH (08:36)
[2019-12-01] MEDS: ATOVAQUONE SUSP 750MG/5ML 210 ML BTL PO SCH (08:36)
[2019-12-01] MEDS: HumaLOG INSULIN (NovoLOG) PER UNIT SC SCH ×4 (08:37→20:12)
[2019-12-01] MEDS: SODIUM CHLORIDE NASAL 0.65% SPRAY BTL (OCEAN) SCH ×2 (08:37→15:56)
[2019-12-01] MEDS: VITAMIN D 1,000 INTERNATIONAL UNITS TABLET PO SCH (08:40)
[2019-12-01] MEDS ORDERED: MOM 30ML SUSPENSION UDC PO ONE (10:00)
[2019-12-01] MEDS: HEPARIN SOD (PORCINE) 5000UNITS/ML VIAL (J1644 PER 1000UNITS) SQ SCH ×2 (10:14→20:11)
[2019-12-01] MEDS ORDERED: POTASSIUM PHOSPHATE INJ 20 MMOL in D5W 250 ML IV ONE (11:00)
[2019-12-01] MEDS ORDERED: DIGOXIN INJ 0.5 MG/2 ML AMP (J1160) IV STA ×2 (11:08→11:48)
--- NOTE | 2019-12-01 11:49 | IPNPDOC ---
Text Note Date of Service The patient was seen on 12/01/19. NOTE Subjective: -very glad to now be on nasal canula, now on 6L NC -However having chest wall pain from the recent CPR, was about to get some medication -had some ectopy overnight, asymptomatic Objective: Vitals: see below. Hemodynamically stable, afebrile General: Obese, NAD Eyes: Anicteric, non injected, PERRLA, EOMI ENT: No bleeding, nasal canula in place Neck: Thick, supple, no adenopathy, trachea midline Chest: Normal air movement, dry crackles at the bases, no wheezing, no rhonchi, nasal canula in place, on 6L Heart: Rate Normal, Regular Rhythm, Normal S1, Normal S2, no noted murmurs Abdomen: Obese, normal bowel sounds, soft,, NTND Extremity: much improved now only trace LE edema, WWP, 2+ DP pulses, no tenderness Skin: normal turgor and temperature no breakdown or lesion Neuro: responds to voice, following commands, spontaneously moving all extremities Labs: reviewed. WBC 18 Hgb 14.4 Cr 1.77 Na 133 K2.9 (repleted with 40 IV and 40 PO overnight, pending repeat at noon) Assessment 69-year-old M with COPD and pulmonary fibrosis on chronic 4L, severe pulmonary hypertension, hyperlipidemia, CHF, coronary artery disease s/p 4 stents, mostly recent ANNA was 4 months ago on ASA/plavix, DM who presented with persistent epistaxis s/p rhinorocket packing now removed with course c/b cardiac arrest requiring intubation, now extubated and recovering, off pressors on lasix gtt with stable higher than baseline O2 requirements at this time. Plan Acute on chronic hypoxemic respiratory failure: H/O chronic hypersensitivity pneumonitis with pulmonary fibrosis with chronic hypoxemic respiratory failure and COPD on 4L at rest at home, recently on a mask in the setting of nasal packing for epistaxis, with course c/b cardiac arrest requiring brief intubation now dowtrending O2 requirement on 6L NC with ongoing diuresis. - s/p extubation, doing well now on 6L NC - Now back on home prednisone of 20 mg daily. - Was on Bactrim for PCP prophylaxis that was switched to atovaquone for concern for possible renal dysfunction. - No empiric antibiotics at this time - Continue Spiriva in place of Incruse. - duoneb TID ERIN on his CKD: in the setting of his shock and cardiac arrest. - strict I/Os - monitor electrolytes daily and replete aggressively - Renally dose medications. Acute on Chronic HFpEF: with madie volume overload at this time and acute on chronic hypoxemia - History of CAD, severe pulmonary hypertension with cor pulmonale and HFpEF now s/p PEA arrest with ROSC, now requiring vasopressor support likely in the setting of sepsis. -TTE showed elevated RVSP in the 80s with RV systolic dysfunction and per pulm given fluid overload and concomitant infection may have had acute worsening of his pulmonary pressures which could have caused reduction in his cardiac output if he has intraventricular dependence on left ventricle (LV)filling precipit ating the arrest. - Trops eventually downtrended - continues on lasix gtt with improving volume overload, now on 20mg/hr - continue his aspirin/ Plavix. - replete lytes aggressively, BID BMPs while on lasix gtt CAD s/p 4 stents - continue with his aspirin, Plavix -Statin held in the setting of transaminitis, likely 2/2 shock liver in the setting of cardiac arrest Type 2 diabetes - continue holding home oral meds - sliding scale - FSBG Q6H while NPO - hypoglycemic protocol - increase levemir to 10U QHS Acute Transaminitis and hyperbilirubinemia: improving -Likely a combination of hepatic congestion as well as shock liver given his cardiac arrest and shock. -continue to monitor, avoid hepatotoxic meds DVT ppx: SCDs and TEDs GI ppx: protonix PO Diet: consistent carb Dispo: ICU Code Status: patient now requesting DNR/DNI status as of this morning. New MOLST is completed and in chart. VS,Fishbone, I+O VS, Fishbone, I+O Laboratory Tests 11/30/19 13:46 12/01/19 03:56 Vital Signs Date Time Temp Pulse Resp B/P (MAP) Pulse Ox O2 Delivery O2 Flow Rate FiO2 12/01/19 07:15 90 Nasal Cannula 6.0 12/01/19 06:00 86 21 103/67 (79) 12/01/19 04:00 97.4 12/01/19 00:00 I&O- Last 24 Hours up to 6 AM 12/01/19 06:00 Intake Total 3390 ml Output Total 4355 ml Balance -965 ml JACQUI PEREZ MD December 01, 2019 09:00
[2019-12-01] MEDS ORDERED: DIGOXIN INJ 0.5 MG/2 ML AMP (J1160) As Ordered ONE (11:50)
--- NOTE | 2019-12-01 14:20 | CCN ---
DATE OF SERVICE: 11/30/2019 CRITICAL CARE NOTE This is hospital day #4, post cardiopulmonary arrest day #2, post extubation day #1. The patient is in the intensive care unit. He was weaned and extubated from mechanical ventilation last evening. He continues to require high concentrations of oxygen. His urine output drifted low in the evening, prompting an increase in the Lasix drip and a dose of Zaroxolyn to which he responded nicely. Currently his temperature is 97, pulse rate 79, respirations 23, blood pressure was 94/61. Oxygen saturation 93% on 60% with oxygen delivered via aerosol mask. At bedside, he is ill appearing. His mucosa are pink. There is no stridor over his trachea. Jugular veins are distended. Neck is supple. There is an ecchymotic region in the base of the right neck posteriorly from IV access attempts. The heart sounds are regular with some ectopy. Breath sounds are diminished with crepitant rales in the bases bilaterally. Chest is symmetric, moves symmetrically. Some accessory muscle use is noted with conversation. Abdomen is soft and obese with positive bowel sounds, nontender. Extremities are edematous. DIAGNOSTIC STUDIES: Sodium is 136, potassium is 3.5, chloride 94, CO2 35, BUN 39, creatinine is down at 2.02, glucose 289, white cell count is 19.7, hemoglobin 13, hematocrit 41, platelet count 141,000 and stable. Differential: White cell count shows 82% neutrophils. Magnesium is 2.2, calcium 7.7 with an albumin of 2, AST is down to 673, ALT is down to 1583, albumin is 2.7, beta-natriuretic peptide is 10,000. Chest x-ray still shows congestion bilaterally in the lungs overlying some chronic interstitial markings. A blood culture is negative. On review of medications, he is receiving Zaroxolyn 2.5 mg one dose, Lasix drip 20 mg an hour, aspirin 81 mg a day, Plavix 75 mg a day, Lipitor 40 mg a day, albuterol nebulized therapy three times a day, Protonix 40 mg IV daily, Mepron, prednisone 20 mg a day and IV steroids, hydrocortisone 50 mg every 8 hours. The primary problem requiring critical attention is acute hypoxic respiratory failure. The patient's oxygen demand remains high. I believe there is a significant component of pulmonary edema persisting. Cardiogenic shock. The patient is now off pressors, blood pressure is adequate. Will continue close monitoring. Acute kidney injury. The creatinine is down this morning. Urine output is up with diuresis. Pulmonary hypertension secondary to underlying interstitial lung disease. Shock liver. The patient's transaminases are better this morning. This is felt related to his cardiopulmonary arrest 48 hours ago. Rhinorrhea. There has been no recurrence. We are using aerosolized oxygen. Hypokalemia. His potassium level is better, but he is actively diuresing. Will give additional potassium IV today. I suspect his oral absorption will be limited. Thrombocytopenia, etiology is still unclear. The platelet count is stable. Heparin-associated antibodies are sent. I believe it may have been related to the antibiotics that were being administered and have now been discontinued. Hypoadrenalism. I will discontinue the IV steroids at this point and continue the oral prednisone at a maintenance dose of 20 mg a day. Deep vein thrombosis (DVT) prophylaxis is being addressed with Lovenox and sequential hose. Ulcer prophylaxis. We will change from IV to oral Protonix. Glycemic control is less than optimal. I would anticipate improvement when we discontinue the IV steroids. The patient's condition remains critical. Prognosis is guarded. 1 hour and 32 minutes was spent in the provision of bedside critical care and coordination.
[2019-12-01] MEDS ORDERED: DIGOXIN INJ 0.5 MG/2 ML AMP (J1160) IV PRN (15:00)
--- NOTE | 2019-12-01 15:21 | ECGEPIP ---
[facility] Test Date: 2019-12-01 Pat Name: IVAN BARTLETT Department: Room: [place] [address] Gender: Male Crematory Attendant: MYNOR : 1950 Requested By: JACQUI Hebert Order Number: [id number] Reading MD: Gibson Beverly Measurements Intervals [place] Rate: 144 P: [place]: 0 QRS: 109 QRSD: 124 T: -24 QT: 362 QTc: 561 Interpretive Statements Atrial flutter/fibrillation with rapid ventricular response PVC vs Jovanny beat [place] indeterminate Right bundle branch block Nonspecific ST-T wave abnormalities Compared to prior tracing of 11/29/2019, atrial fibrillation is new, and associated with fast heart rate Electronically Signed on 12-01-2019 15:21:10 EDT by Gibson Beverly
[2019-12-01 18:50] LABS: ALBUMIN 2.7 GM/DL (3.2-5.2); CALCIUM LEVEL 8.1 MG/DL (8.8-10.2); CREATININE FOR GFR 1.83 MG/DL (0.70-1.30); PHOSPHORUS LEVEL 4.4 MG/DL (2.5-4.9); POTASSIUM SERUM 3.5 MEQ/L (3.5-5.1)
[2019-12-01] MEDS: ATORVASTATIN 20 MG TAB PO SCH (20:14)
[2019-12-01] MEDS ORDERED: LEVEMIR (INSULIN DETEMIR) 1 UNITS/0.01ML SC SCH (21:00)
[2019-12-02] VITALS (14 sets, daily range): BP systolic 95–139; BP diastolic 64–96
[2019-12-02] MEDS: FUROSEMIDE injection 250 MG in D5W 225 ML IV SCH (04:06)
[2019-12-02] MEDS: SODIUM CHLORIDE NASAL 0.65% SPRAY BTL (OCEAN) SCH ×4 (04:09→21:33)
[2019-12-02 04:29] LABS: BASO % 0.1 % (0.0-1.0); EOS # 0.4 10^3/uL (0.0-0.5); EOS % 1.9 % (0.0-3.0); HEMATOCRIT 46.2 % (42.0-52.0); HEMOGLOBIN 15.3 g/dl (13.5-17.5); LYMPH # 3.5 10^3/uL (1.5-5.0); MEAN CORPUSCULAR HEMOGLOBIN 29.9 pg (27.0-33.0); MEAN CORPUSCULAR HGB CONC 33.1 g/dl (32.0-36.5); MEAN CORPUSCULAR VOLUME 90.2 fl (80.0-96.0); MONO # 2.2 10^3/uL (0.0-0.8); MONO % 11.8 % (0.0-5.0); NEUTROPHILS # 12.2 10^3/uL (1.5-8.5); NEUTROPHILS % 66.4 % (36.0-66.0); PLATELET COUNT, AUTOMATED 195 10^3/uL (150-450); RED BLOOD COUNT 5.12 10^6/uL (4.30-6.10); WHITE BLOOD COUNT 18.3 10^3/uL (4.0-10.0)
[2019-12-02] MEDS: oxyCODONE 5MG TAB PO PRN (04:31)
[2019-12-02 05:21] LABS: CREATININE FOR GFR 1.42 MG/DL (0.70-1.30)
[2019-12-02 05:22] LABS: ALBUMIN 2.8 GM/DL (3.2-5.2); CALCIUM LEVEL 7.9 MG/DL (8.8-10.2); DIGOXIN LEVEL 0.4 NG/ML (0.5-2.0); GLOMERULAR FILTRATION RATE 52.3 (>42); PHOSPHORUS LEVEL 3.5 MG/DL (2.5-4.9); POTASSIUM SERUM 2.9 MEQ/L (3.5-5.1); TOTAL PROTEIN 5.8 GM/DL (6.4-8.2)
[2019-12-02] MEDS ORDERED: KCL 20MEQ IN 100ML SWI (KRUN) 20 MEQ in IV 1 EA IV SCH ×2 (05:30)
[2019-12-02] MEDS ORDERED: POTASSIUM CHLORIDE 10 MEQ SR TABLET PO ONE ×2 (05:30→12:00)
[2019-12-02] MEDS: SLF 3 ML SYR IV SCH ×3 (05:55→21:34)
[2019-12-02] MEDS: ALBUTEROL SULFATE 2.5 MG/0.5 ML INH NEB SOLN INH SCH ×3 (07:08→20:11)
[2019-12-02] MEDS: TIOTROPIUM INHALER/CAPSULE (SPIRIVA) INH SCH (07:09)
[2019-12-02 07:25] LABS: MAGNESIUM LEVEL 2.4 MG/DL (1.8-2.4)
[2019-12-02] MEDS ORDERED: KCL 20MEQ IN 100ML SWI (KRUN) 20 MEQ in IV 1 EA IV ONE ×4 (07:30→09:30)
--- NOTE | 2019-12-02 07:35 | REP ---
Clinical: Status post extubation. Comparison: 12/01/2019, 11/30/2019 Findings: Mediastinum and cardiac silhouette with mild cardiomegaly remains stable. Lung martinez demonstrate stable chronic fibrosis and scarring. No obvious focal consolidation, effusion or pneumothorax identified. Skeletal structures are intact with evidence for prior left clavicle fracture. Impression: Stable chronic changes. No obvious acute focal consolidation or effusion. Electronically Signed by Bill Cartwright MD 12/02/2019 07:26 A
[2019-12-02] MEDS: ATOVAQUONE SUSP 750MG/5ML 210 ML BTL PO SCH (08:23)
[2019-12-02] MEDS: predniSONE 20 MG TAB PO SCH (08:24)
[2019-12-02] MEDS: ASPIRIN 81 MG CHEW TABLET GT SCH (08:24)
[2019-12-02] MEDS: VITAMIN D 1,000 INTERNATIONAL UNITS TABLET PO SCH (08:24)
[2019-12-02] MEDS: POTASSIUM CHLORIDE 10 MEQ SR TABLET PO SCH ×2 (08:24→10:06)
[2019-12-02] MEDS: CLOPIDOGREL 75 MG TAB PO SCH (08:24)
[2019-12-02] MEDS: HEPARIN SOD (PORCINE) 5000UNITS/ML VIAL (J1644 PER 1000UNITS) SQ SCH ×2 (08:24→21:32)
[2019-12-02] MEDS: HumaLOG INSULIN (NovoLOG) PER UNIT SC SCH ×4 (08:24→20:05)
[2019-12-02] MEDS: PANTOPRAZOLE 20 MG TAB PO SCH (08:24)
[2019-12-02] MEDS: MIRALAX *UNIT DOSE* 17GM PACKET PO SCH (08:25)
--- NOTE | 2019-12-02 11:38 | CCN ---
DATE: 12/01/2019 CRITICAL CARE NOTE: This is hospital day #2, post extubation day #2. The patient remains in intensive care unit critically ill. He appears a bit more comfortable than he did yesterday. He remains quite dyspneic and is complaining of right-sided chest pain likely related to cardiopulmonary resuscitation (CPR). His temperature is 97, pulse rate is 86, respirations are 20, blood pressure 112/65, oxygen saturation is 90% on 6 liters delivered via nasal cannula. His intake and output for the past 24 hours 3245 in, 4155 out; since midnight 820 in and 2300 out. His weight is currently 104, on admission 108 kg. At bedside, he remains ill appearing. His oral mucosa is pink. Neck is supple. Jugular veins remain distended. The carotid upstroke is sluggish. Heart sounds are regular with ectopy. Breath sounds are asymmetric with crepitant rales in the right greater than left. Breath sounds are overall diminished. There are some pleural sounds in the left side posteriorly. Abdomen is soft with intact bowel sounds, not tender but somewhat full. The extremities continue to show edema bilaterally. There is no calf tenderness. DIAGNOSTIC STUDIES: Sodium is 133, potassium 2.9, chloride 88, CO2 36, BUN 46, creatinine 1.77, glucose is 235, ranged 228-356. White cell count is 18, hemoglobin is up to 14.4, hematocrit is up to 43.7, platelet count is up to 154,000. His AST is down to 284, ALT is down to 1218, albumin is 2.8. His magnesium is 2.2, phosphorus is down to 3.6, LDH is 608. His heparin associated antibodies remain pending. Chest x-ray is slightly better than yesterday. It continues to show bilateral interstitial prominence. The diaphragm tone is improved. On medications review, he continues to receive Mepron (PCP prophylaxis), prednisone 20 mg a day, aspirin 81 mg a day, Plavix 75 mg a day, Lasix at 20 mg per hour via drip, Spiriva by metered-dose inhaler once daily, albuterol via nebulizer three times a day. Deep venous thrombosis (DVT) prophylaxis was stopped yesterday. He is receiving ulcer prophylaxis with oral Protonix. The primary problem requiring critical attention is: 1. Hypoxic respiratory failure. This is improving with diuresis. His oxygen requirement is down from yesterday. Baseline oxygen requirement is 4 liters. 2. Cardiogenic shock, resolved. The patient has been off pressors for the past 48 hours. 3. Hypervolemia. Will continue with the Lasix drip at 20 mg per hour and add a fluid restriction. 4. Acute kidney injury. His creatinine is down with aggressive diuresis, which suggests an improvement in cardiac output and renal perfusion. 5. Pulmonary hypertension. This is secondary to his interstitial lung disease and likely some underlying obstructive lung disease from smoking as well. 6. Shock liver. He is recovering. His transaminases are substantially improved. Liver function is anticipated to improve as well. 7. Hypokalemia. This is secondary to diuresis. The patient will likely do better with IV potassium replacement versus oral. Potassium level is to be rechecked at noon. 8. Cardiac ectopy. This is likely related to abnormal electrolytes and to significant cardiac remodeling as the preload is reduced with diuresis. Will continue close monitoring. 9. Hypophosphatemia. We will replace and recheck this. 10. Thrombocytopenia. I suspect this was secondary to antibiotics as his platelet count improved with discontinuation of antibiotics. The improvement in platelet count is not consistent with heparin associated thrombocytopenia and though the antibody is pending I will restart subcutaneous heparin. 11. Chronic steroid use. The patient is now on 20 mg of prednisone, his usual dose and Mepron in place of Septra for PCP prophylaxis. 12. DVT prophylaxis. The patient is high risk for DVT and pulmonary embolism. It would be difficult to determine that he had, had a DVT given his chronic extremity edema and hypoxemia. As his transaminases are recovering and his platelet count is improved, I will restart subcutaneous heparin. 13. Constipation. Will administer a dose of Milk of Magnesia. 14. Ulcer prophylaxis. The patient is receiving oral Protonix. 15. Glycemic control. Better today than it had been as the steroid dose is reduced. Will continue fingerstick blood sugars and coverage. The patient's condition remains critical. Prognosis is guarded. Intensive care unit (ICU) care is appropriate. 1 hour and 37 minutes was spent in the provision of bedside critical care and coordination.
--- NOTE | 2019-12-02 12:42 | IPNPDOC ---
Text Note Date of Service The patient was seen on 12/02/19. NOTE Subjective: continues to have chest wall pain from the recent CPR, Says breath ing is much better, had a good night was able to sleep. Multiple ectopies in telemetry. Objective: Vitals: see below. General: Obese, NAD, awake , alert, cooperative and oriented. Eyes: Anicteric, non injected, PERRLA, EOMI, Facial flushing. ENT: No bleeding, nasal canula in place Neck: Thick, supple, no adenopathy, trachea midline , bruising on the right side. Chest: Normal air movement, dry crackles at the bases, no wheezing, no rhonchi, nasal canula in place, on 6L Heart: Rate Normal, Regular Rhythm, Normal S1, Normal S2, no noted murmurs Abdomen: Obese, normal bowel sounds, soft,, NTND Extremity: much improved now only trace LE edema, WWP, 2+ DP pulses, no tenderness Skin: normal turgor and temperature no breakdown or lesion Neuro: No focal neurodeficits. Laba and radiology: reviewed Assessment and Plan; 69-year-old M with COPD and pulmonary fibrosis on chronic 4L, severe pulmonary hypertension, hyperlipidemia, CHF, coronary artery disease s/p 4 stents, mostly recent ANNA was 4 months ago on ASA/plavix, DM who presented with persistent epistaxis s/p rhinorocket packing now removed with hospital course complicated by cardiac arrest immediately following rhinorocket removal in OR during which he was given fentanyl x 2 doses requiring intubation, now extubated and recov ering, off pressors on lasix gtt with stable higher than baseline O2 requirements at this time. S/P PEA Cardiac arrest No neurodeficits S/P Cardiogenic Shock S/P Shock Liver transaminitis improving Epistaxis resolved after rhinorocket packing. Acute on chronic hypoxemic respiratory failure: Due to CHF exacerbation on the back ground of chronic hypersensitivity pneumonitis with pulmonary fibrosis and COPD with chronic hypoxemic respiratory failure on 4L at rest s/p extubation, doing well now on 6L NC Now back on home prednisone of 20 mg daily. Was on Bactrim for PCP prophylaxis that was switched to atovaquone for concern for possible renal dysfunction. Continue Spiriva in place of Incruse. duoneb TID ERIN on his CKD: in the setting of his shock and cardiac arrest and acute CHF improving continue diuresis strict I/Os monitor electrolytes daily and replete aggressively Renally dose medications. Acute on Chronic HFpEF: with madie volume overload at this time and acute on chronic hypoxemia with severe pulmonary hypertension with cor pulmonale and HFpEF now s/p PEA arrest TTE showed elevated RVSP in the 80s with RV systolic dysfunction and continues on lasix gtt with improving volume overload continue his aspirin/ Plavix. Brief episode of Afib on 12/01/19 received digoxin. Leucocytosis on prednisone, on diuresis with rapidly audra volume status. procalcitonin not elevated No signs of infection. Hypokalemia replaced will recheck in PM. CAD s/p 4 stents continue with his aspirin, Plavix Statin held in the setting of transaminitis Type 2 diabetes continue holding home oral meds sliding scale Lispro and levemir hypoglycemic protocol Acute Transaminitis and hyperbilirubinemia: improving Likely a combination of hepatic congestion as well as shock liver given his cardiac arrest and shock. continue to monitor, avoid hepatotoxic meds DVT ppx: SCDs and TEDs GI ppx: protonix PO Diet: consistent carb Code Status: DNR/DNI. New MOLST is completed and in chart. VS,Fishbone, I+O VS, Fishbone, I+O Laboratory Tests 12/01/19 12:41 12/01/19 17:50 12/02/19 03:49 Vital Signs Date Time Temp Pulse Resp B/P (MAP) Pulse Ox O2 Delivery O2 Flow Rate FiO2 12/02/19 10:20 90 High Flow Cannula 6.0 12/02/19 09:00 90 107/72 (84) 12/02/19 08:00 96.6 22 12/01/19 00:00 I&O- Last 24 Hours up to 6 AM 12/02/19 06:00 Intake Total 1987 ml Output Total 5215 ml Balance -3228 ml ABI LOVE MD December 02, 2019 12:42
[2019-12-02] MEDS ORDERED: LEVEMIR (INSULIN DETEMIR) 1 UNITS/0.01ML SC ONE (12:45)
[2019-12-02 15:00] LABS: ALBUMIN 2.9 GM/DL (3.2-5.2); CALCIUM LEVEL 8.6 MG/DL (8.8-10.2); CK-MB VALUE MASS 3.7 NG/ML (<3.6); CREATININE FOR GFR 1.53 MG/DL (0.70-1.30); MB/CK RELATIVE INDEX 5.78 (< OR =4); PHOSPHORUS LEVEL 3.2 MG/DL (2.5-4.9); POTASSIUM SERUM 3.6 MEQ/L (3.5-5.1); TROPONIN I 0.45 NG/ML (< 0.10)
[2019-12-02] MEDS: LEVEMIR (INSULIN DETEMIR) 1 UNITS/0.01ML SC SCH (21:32)
[2019-12-02] MEDS: ATORVASTATIN 20 MG TAB PO SCH (21:36)
[2019-12-02] MEDS ORDERED: RAMELTEON 8 MG TAB (ROZEREM) PO ONE (22:00)
[2019-12-02] MEDS ORDERED: MUPIROCIN 2% OINT 22 GM TUBE TOP ONE (23:00)
--- NOTE | 2019-12-02 23:46 | ECGEPIP ---
[facility] Test Date: 2019-12-02 Pat Name: IVAN BARTLETT Department: Room: [place] [address] Gender: Male Echocardiographer: JUAQUIN : 1950 Requested By: JERSON Reyes Order Number: [id number] Reading MD: Eb Brown Measurements Intervals [place] Rate: 104 P: 12 [place]: 167 QRS: 131 QRSD: 137 T: -7 QT: 340 QTc: 449 Interpretive Statements SINUS TACHYCARDIA WITH FREQUENT VENTRICULAR PREMATURE COMPLEXES WITH OCCASIONAL SUPRAVENTRICULAR PREMATURE COMPLEXES RIGHT BUNDLE BRANCH BLOCK Left atrial abnormality Compared to prior tracings in the system, no significant changes Electronically Signed on 12-02-2019 23:46:29 EDT by Eb Brown
[2019-12-03] VITALS: BP 116/78
[2019-12-03] MEDS: SLF 3 ML SYR IV SCH ×3 (03:54→21:02)
[2019-12-03 04:00] VITALS: BP 108/64
[2019-12-03 05:46] LABS: BASO % 0.2 % (0.0-1.0); EOS # 0.4 10^3/uL (0.0-0.5); EOS % 2.1 % (0.0-3.0); HEMATOCRIT 44.3 % (42.0-52.0); HEMOGLOBIN 14.5 g/dl (13.5-17.5); LYMPH # 3.3 10^3/uL (1.5-5.0); LYMPH % 16.8 % (24.0-44.0); MEAN CORPUSCULAR HEMOGLOBIN 29.7 pg (27.0-33.0); MEAN CORPUSCULAR HGB CONC 32.7 g/dl (32.0-36.5); MEAN CORPUSCULAR VOLUME 90.8 fl (80.0-96.0); MONO # 2.2 10^3/uL (0.0-0.8); MONO % 10.9 % (0.0-5.0); NEUTROPHILS # 13.7 10^3/uL (1.5-8.5); NEUTROPHILS % 69.2 % (36.0-66.0); PLATELET COUNT, AUTOMATED 206 10^3/uL (150-450); RED BLOOD COUNT 4.88 10^6/uL (4.30-6.10); WHITE BLOOD COUNT 19.8 10^3/uL (4.0-10.0)
[2019-12-03 06:20] LABS: ALBUMIN 2.6 GM/DL (3.2-5.2); ALT/SGPT 477 U/L (12-78); BILIRUBIN,TOTAL 3.4 MG/DL (0.2-1.0); BLOOD UREA NITROGEN 41 MG/DL (7-18); CALCIUM LEVEL 8.3 MG/DL (8.8-10.2); CARBON DIOXIDE LEVEL 40 MEQ/L (21-32); CHLORIDE LEVEL 92 MEQ/L (98-107); CHOLESTEROL LEVEL 82 MG/DL (< 200); CPK CREATINE PHOSPHOKINASE 53 U/L (39-308); CREATININE FOR GFR 1.17 MG/DL (0.70-1.30); GLOMERULAR FILTRATION RATE > 60.0 (>42); GLUCOSE, FASTING 121 MG/DL (70-100); LDH LACTATE DEHYDROGENASE 518 U/L (87-241); PHOSPHORUS LEVEL 3.1 MG/DL (2.5-4.9); POTASSIUM SERUM 3.1 MEQ/L (3.5-5.1); SODIUM LEVEL 140 MEQ/L (136-145); TOTAL PROTEIN 5.3 GM/DL (6.4-8.2); TRIGLYCERIDES LEVEL 93 MG/DL (<150)
[2019-12-03] MEDS: ALBUTEROL SULFATE 2.5 MG/0.5 ML INH NEB SOLN INH SCH ×3 (07:32→19:50)
[2019-12-03] MEDS: TIOTROPIUM INHALER/CAPSULE (SPIRIVA) INH SCH (07:32)
[2019-12-03 07:35] VITALS: BP 116/80
[2019-12-03] MEDS: LEVEMIR (INSULIN DETEMIR) 1 UNITS/0.01ML SC SCH ×2 (08:24→21:01)
[2019-12-03] MEDS: HumaLOG INSULIN (NovoLOG) PER UNIT SC SCH ×4 (08:24→21:02)
[2019-12-03] MEDS: PANTOPRAZOLE 20 MG TAB PO SCH (08:25)
[2019-12-03] MEDS: CLOPIDOGREL 75 MG TAB PO SCH (08:25)
[2019-12-03] MEDS: ASPIRIN 81 MG CHEW TABLET GT SCH (08:25)
[2019-12-03] MEDS: POTASSIUM CHLORIDE 10 MEQ SR TABLET PO SCH ×2 (08:25→21:03)
[2019-12-03] MEDS: predniSONE 20 MG TAB PO SCH (08:26)
[2019-12-03] MEDS: VITAMIN D 1,000 INTERNATIONAL UNITS TABLET PO SCH (08:26)
[2019-12-03] MEDS: MIRALAX *UNIT DOSE* 17GM PACKET PO SCH (08:26)
[2019-12-03] MEDS: HEPARIN SOD (PORCINE) 5000UNITS/ML VIAL (J1644 PER 1000UNITS) SQ SCH ×2 (08:27→21:02)
[2019-12-03] MEDS: SODIUM CHLORIDE NASAL 0.65% SPRAY BTL (OCEAN) SCH ×3 (08:27→21:02)
--- NOTE | 2019-12-03 09:11 | IPNPDOC ---
Text Note Date of Service The patient was seen on 12/03/19. NOTE Subjective: Patient again started having epistaxis from the right nose. Nose was packed with rhinorocket. Continues to have chest wall pain from the recent CPR, Says breathing is ok, not any worse than yesterday. Continues to have multiple PVCs and NSVTs in telemetry. Objective: Vitals: see below. General: Obese, NAD, awake , alert, cooperative and oriented. Eyes: Anicteric, non injected, PERRLA, EOMI, Facial flushing. ENT: No bleeding, nasal canula in place Neck: Thick, supple, no adenopathy, trachea midline , bruising on the right side. Chest: Normal air movement, dry crackles at the bases, no wheezing, no rhonchi, nasal canula in place, on 6L Heart: Rate Normal, Regular Rhythm, Normal S1, Normal S2, no noted murmurs Abdomen: Obese, normal bowel sounds, soft,, NTND Extremity: much improved now only trace LE edema, WWP, 2+ DP pulses, no tenderness Skin: normal turgor and temperature no breakdown or lesion Neuro: No focal neurodeficits. Laba and radiology: reviewed Assessment and Plan; 69-year-old M with COPD and pulmonary fibrosis on chronic 4L, severe pulmonary hypertension, hyperlipidemia, CHF, coronary artery disease s/p 4 stents, mostly recent ANNA was 4 months ago on ASA/plavix, DM who presented with persistent epistaxis s/p rhinorocket packing now removed with hospital course complicated by cardiac arrest immediately following rhinorocket removal in OR during which he was given fentanyl x 2 doses requiring intubation, now extubated and r ecovering, off pressors on lasix gtt with stable higher than baseline O2 requirements at this time. Recurrent right epistaxis again on 12/02/19 night rhinorocket again inserted. will give Augmentin to prevent sinusitie Discussed with ENT Dr Abraham. He recommended BABITA embolization for this recurrent epistaxis. Last time when he took to OR for rhinorocket removal he did not visualize and source of bleeding and so says further visualization is not going to be helpful. Internal maxillary artery embolization can be done in centers with neurointerventional radiologists. It continues to bleed may have to transfer the patient. S/P PEA Cardiac arrest No neurodeficits S/P Cardiogenic Shock S/P Shock Liver transaminitis improving Acute on chronic hypoxemic respiratory failure: Due to CHF exacerbation on the back ground of chronic hypersensitivity pneumonitis with pulmonary fibrosis and COPD with chronic hypoxemic respiratory failure on 4L at rest s/p extubation, doing well now on 6L NC Now back on home prednisone of 20 mg daily. Was on Bactrim for PCP prophylaxis that was switched to atovaquone for concern for possible renal dysfunction. Continue Spiriva in place of Incruse. duoneb TID ERIN on his CKD: in the setting of his shock and cardiac arrest and acute CHF improved continue diuresis strict I/Os monitor electrolytes daily and replete aggressively Renally dose medications. Acute on Chronic HFpEF: with madie volume overload at this time and acute on chronic hypoxemia with severe pulmonary hypertension with cor pulmonale and HFpEF now s/p PEA arrest TTE showed elevated RVSP in the 80s with RV systolic dysfunction and continues on lasix gtt with improving volume overload continue his aspirin/ Plavix. Brief episode of Afib on 12/01/19 received digoxin. Leucocytosis on prednisone, on diuresis with rapidly audra volume status. procalcitonin not elevated No signs of infection. Hypokalemia continue replacement CAD s/p 4 stents < 1 year continue with his aspirin, Plavix Statin held in the setting of transaminitis Type 2 diabetes continue holding home oral meds sliding scale Lispro and levemir hypoglycemic protocol Acute Transaminitis and hyperbilirubinemia: improving Likely a combination of hepatic congestion as well as shock liver given his cardiac arrest and shock. continue to monitor, avoid hepatotoxic meds DVT ppx: SCDs and TEDs GI ppx: protonix PO Diet: consistent carb Code Status: DNR/DNI. New MOLST is completed and in chart. VS,Fishbone, I+O VS, Fishbone, I+O Laboratory Tests 12/02/19 14:14 12/02/19 23:18 12/03/19 05:21 Vital Signs Date Time Temp Pulse Resp B/P (MAP) Pulse Ox O2 Delivery O2 Flow Rate FiO2 12/03/19 07:35 98.0 65 18 116/80 (92) 94 High Flow Cannula 10.0 12/03/19 04:00 40 I&O- Last 24 Hours up to 6 AM 12/03/19 05:59 Intake Total 1350 ml Output Total 2775 ml Balance -1425 ml ABI LOVE MD December 03, 2019 09:11
[2019-12-03 11:47] VITALS: BP 117/70
--- NOTE | 2019-12-03 11:59 | IPN ---
DATE OF CONSULTATION: 12/02/2019 Mr. Castillo was seen and examined this morning during bedside rounds. He appears very comfortable. States he is feeling much better. He had one bowel movement overnight with no problems. He notes that he is able to breathe much better and easier and is able to come down on the oxygen from 8 liters to 6 liters this morning. He is tolerating his consistent-carbohydrate diet very well. He was slightly hypokalemic this morning with frequent premature ventricular contractions (PVCs) and multiple beats of ventricular tachycardia, but he is asymptomatic. He has no other complaints. He is currently hospital day #11, cardiopulmonary arrest day #5, post extubation date #3. VITAL SIGNS: Temperature 96.6, pulse 95, irregular, respirations 22, blood pressure 107/72 (84), pulse oximetry 95% on 8 liters of high-flow cannula. Intake total in the last 24 hours 2397 mL, output total 5415 mL, net balance of -3018 mL. Current weight today is 108 kg. GENERAL: This is a very pleasant 69-year-old male who does not appear in acute distress, lying comfortably in the bed at a 30-degree angle. Alert and oriented times three. HEENT: Atraumatic, normocephalic. Pupils equal, round, and reactive. No jugular venous distention (JVD). High-flow nasal cannula is in place. HEART: Regular rate and rhythm. S1, S2 sounds are present. No audible murmurs, rubs, or gallops. LUNGS: Bibasilar crackles appreciated but no audible wheezing, rhonchi, or rales. ABDOMEN: Obese. Normal bowel sounds. Soft, nontender, nondistended. EXTREMITIES: Very minimal lower extremity edema at the ankles. Dorsalis pedal pulses 2+. No calf tenderness noted. NEUROLOGIC: No focal neurologic deficits noted. LABORATORY DATA: Sodium 137, potassium 2.9, chloride 89, carbon dioxide 43, BUN 39, creatinine 1.42, glucose 207. WBC 18.3, hemoglobin 15.3, hematocrit 46.2, platelets 195. Magnesium 2.4, phosphate 3.5. LDH 570. Bilirubin 3.0. INR 1.3. AST 133, ALT 857, albumin 2.8, total protein 5.8. Chest x-ray was reviewed from 12/02/2019. It is relatively unchanged. Shows old left clavicular fracture. Chronic fibrotic changes, as noted on the old x-ray. Continues to have obscured heart borders. Microbiology: Blood culture times one from November 26: No growth for 72 hours. Antibiotics: Atovaquone, day #5. Steroids: Prednisone 20 mg. Deep vein thrombosis: Heparin. Ulcer prophylaxis: Protonix. Currently on Lasix 20 mg per hour drip, aspirin 81 mg daily, Spiriva metered-dose inhaler (MDI) daily, albuterol via nebulizer three times a day. ASSESSMENT AND PLAN: This is a 69-year-old male with a pertinent past medical history of chronic obstructive pulmonary disease (COPD), pulmonary fibrosis, on chronic 4 liters, severe pulmonary hypertension, relatively 80 mm of mercury, congestive heart failure, coronary artery disease, status post four stents last in July 2019, currently on dual-antiplatelet therapy, aspirin and Plavix, who was admitted for persistent epistaxis. His hospital course was complicated by cardiopulmonary arrest immediately following the Rhino Rocket removal in the operating room (OR) on the after he was given two doses of 50 mg fentanyl. He was intubated but now is extubated, currently post extubation day #3 and off of pressors. 1. Hypoxic respiratory failure secondary to hypervolemia. This has improved significantly with the diuresing. His oxygen requirement has continued to go down close to baseline to 6 liters today. He is saturating above 90% on 6 liters relatively well. We will turn off the Lasix drip today and see how the patient will tolerate. His baseline oxygen requirement is 4 liters. 2. Cardiogenic shock, resolved. He is off pressors for greater than 72 hours and is maintaining mean arterial pressure (MAP) over 65. 3. Hypervolemia. He does appear more euvolemic on exam today. We will turn off the Lasix drip and continue with the fluid restriction and see if a clinical improvement. If he continues to be stable overnight, we will transition to him oral diuretic medications tomorrow. 4. Acute kidney injury. His BUN and creatinine have improved to 39/1.42, respectively. This has improved significantly while on the Lasix drip. We will be turning off the Lasix drip and will continue to see if this continues improvement. 5. Pulmonary hypertension. This is secondary to his interstitial lung disease from his pigeon serum positivity as well as underlying chronic obstructive pulmonary disease (COPD) from his smoking history. 6. Shock liver. Resolved. AST/ALT have improved, so will continue to monitor. 7. Hypokalemia. Continues to be hypokalemic at 2.9 this morning. He has had 120 mEq of potassium ordered today. Will get a repeat of his potassium at 2 p.m. this afternoon. I predict that this will improve, for we are turning off the Lasix drip today, so we will monitor his potassium levels. Magnesium level is appropriate at 2.4, so no magnesium replacement is needed. 8. Cardiac ectopy. He continues to have frequent premature ventricular contractions (PVCs) and multiple beats of ventricular tachycardia overnight and during our exam today. He did have hypokalemia. Could be secondary to abnormal electrolytes, but we will get an EKG and a troponin level. 9. Thrombocytopenia, resolved. Heparin-induced antibody was negative, and heparin was resumed. The patient's platelet levels increased despite being on heparin. It is possibly secondary to his antibiotics, which were discontinued multiple days ago. 10. Chronic steroid use, currently on 20 mg of prednisone, which is his home dose. For Pneumocystis pneumoniae (PCP) prophylaxis he is on atovaquone, currently day #5 despite his home Bactrim because of his renal injury. Upon discharge we can resume the Bactrim once his kidney function improves. 11. Deep vein thrombosis (DVT) prophylaxis. He is on heparin, for he is at high risk of DVTs and pulmonary embolism (PE). 12. Diabetes. Sugars are relatively well at 207 today. He currently has Levemir 10 units twice a day as well as fingersticks on board. Will monitor. Critical care time: One hour was spent with the attending in provision of the bedside critical care and coordination. Dr. Parker addendum: I participated in the vickers elements of the patient visit including history, physical, and medical decision making. I agree with the information presented. He remains very complex and great caution must be used to ensure progress. JEROME
[2019-12-03] MEDS: AUGMENTIN 875 MG TAB PO SCH ×2 (12:32→21:03)
[2019-12-03] MEDS: ATOVAQUONE SUSP 750MG/5ML 210 ML BTL PO SCH (12:32)
[2019-12-03] MEDS: TORSEMIDE 20 MG TAB PO SCH (12:32)
--- NOTE | 2019-12-03 12:39 | IPN ---
DATE OF SERVICE: 12/03/2019 Mr. Castillo was seen and examined this morning during bedside rounds with Dr. Parker at bedside. Overnight it is reported that after he got his normal saline dose as scheduled his right nostril began to bleed profusely and a Rhino Rocket was replaced. The patient states that he has not very happy on the fact that his nose continues to bleed and he does not have any solution. He is not happy that he has to possibly stay here for another four days to resolve this problem and he would like to see an ENT this morning to discuss his case. He denies any shortness of breath or trouble breathing. He continues to have a good appetite with no problems. He has been off the Lasix drip since yesterday afternoon and has been tolerating it very well. His potassium was slightly low at 3.1 today, but he has been supplementing with potassium chloride twice a day that is scheduled now. He continues to have frequent PVCs and multiple beats of ventricular tachycardia overnight that continue to be asymptomatic. No other events reported by nursing. PHYSICAL EXAMINATION: VITAL SIGNS: Temperature 98.0, pulse 65, respirations 18, blood pressure 116/80 (92), pulse oximetry 94% with O2 flow rate 10 liters via the hooded tent because of Rhino Rocket being in place. INS AND OUTS: Intake total 1700 mL, output total 3900 mL, net balance of negative 2200 mL. His weight this morning is down to 99.7 kg. GENERAL: This is a very pleasant 69-year-old male who is not in the best of mood this morning due to his nosebleed returning this morning. Alert and oriented times three. HEENT: Atraumatic, normocephalic. Right nares with Rhino Rocket in place with dried blood appreciated on the right nasal nares. Mouth with moist mucous membrane. Dried blood appreciated in the posterior palate. No active bleeding is noted. Thick supple neck with no adenopathy and slight bruising on the right side secondary to his cardiopulmonary resuscitation (CPR), but healing appropriately. LUNGS: Clear to auscultate in the upper airways. Continues to have crackles at the bases, but improved with no wheezing or rhonchi appreciated. HEART: Today, he is tachycardic, regular rhythm, with occasional PVCs appreciated on exam. No audible murmurs can be noted. ABDOMEN: Obese. Soft. Nontender. Nondistended. EXTREMITIES: Lower extremity edema. Very trace edema noted in the lower extremities, improved signfiicantly. No tenderness of the calves. NEUROLOGIC: No focal neurologic deficits noted. LABORATORY DATA: WBC 19.8, hemoglobin 14.5, hematocrit 44.3, platelets 206. Chemistries: Sodium 140, potassium 3.1, chloride 92, carbon dioxide 40, anion gap 8, BUN 41, creatinine 1.17, GFR greater than 60, fasting glucose 121, calcium 8.3, phosphorus 3.1, total bilirubin 3.4, AST 75, ALT 475, alkaline phosphatase 143, LDH 518. Troponin from yesterday 0.45. Total protein 5.3. Albumin 2.6. Microbiology: Blood cultures no growth for five days. MEDICATIONS: - potassium chloride 40 mEq twice a day - Levemir 10 units twice a day - prednisone 20 mg daily - heparin 5000 units every 12 - Protonix 20 mg daily - insulin sliding scale - Mepron 1500 mg by mouth daily - aspirin 81 mg daily - Lipitor 40 mg at bedtime - MiraLAX one packet - oxycodone 5 mg every 4 hours as needed - Tylenol 650 mg every 4 hours as needed - clopidogrel 75 mg by mouth daily - Spiriva one inhalation daily at 8 - albuterol nebulizer three times a day IMAGING: No new imaging. ASSESSMENT AND PLAN: This is a 69-year-old male with multiple comorbidities who was admitted for epistaxis whose hospital course was complicated by cardiopulmonary arrest on 11/27/2019 post extubation on 11/30/2019, so currently day four. 1. Hypoxic respiratory failure significantly improved with the IV diuresing. We stopped the Lasix drip yesterday and his kidney function is at its best currently. We will transition him to his home dose of torsemide, but starting a small dose of 20 mg daily and progress up to his normal 40 mg in the morning and 20 mg in the evening. He currently is on 10 liters of high flow oxygen, but it is in a dudley tent delivery system. His baseline oxygen requirement is 4 liters, but because of the Rhino Rocket in place we have to use the dudley system. His lungs are improved significantly on clinical exam today. He did not appear in any acute respiratory distress when conversing today. 2. Cardiogenic shock, resolved. 3. Hypervolemia, which has resolved. We have stopped the Lasix drip. We are transitioning to his home torsemide with starting with torsemide 20 mg this morning. 4. Acute kidney injury, resolved. His BUN is 41 today with a creatinine of 1.17 with GFR greater than 60. This is the best he has been for multiple months actually. This is confirmatory that it was all prerenal azotemia from reduced cardiac output and renal perfusion. Will continue to monitor. 5. Epistaxis. He did have a nosebleed once again last night. Rhino Rocket is in place. Dr. Abraham was called at bedside who recommended to keep the Rhino Rocket in place as there is no active bleeding noted at this current time. He did recommend a possible transfer to a higher level of care for possible internal maxillary artery embolization. Primary team currently discussing with outside hospital possibly [facility] of accepting the patient is currently on hold. A contributory factor of his epistaxis can be secondary to his pulmonary hypertension. Platelet levels are appopriate. BUN level 41. He is on dual antiplatelet therapy due to his recent stent in July. So there are multiple factors than can be contributing to his bloody nose and I believe he embolization therapy can be beneficial,. 6. 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 Currently stable. He is satting appropriately, but does have the dudley/tent oxygen delivery system in place with 10 liters of high flow oxygen. Will monitor this. 7. Shock liver, resolving. His AST/ALT levels continue to improve. 8. Hypokalemia secondary to his diuresing. Currently has potassium of 40 mEq twice a day scheduled. We will monitor. We are resuming his home torsemide at a lower dose and titrating back up to his home dose. 9. Frequent cardiac ectopy with frequent premature ventricular contractions (PVCs) and multiple beats of ventricular tachycardia. We did get a troponin yesterday which showed troponin was 0.45. We did note his ischemic cardiomyopathy that is contributing to his ectopic beats. He does have abnormal electrolytes this morning at 3.1 with a normal magnesium. Unsure of what is really contributing to his cardiac ectopy, but possibly ischemic cardiomyopathy with significant cardiac remodeling might be a contributing factor. Will continue to monitor on telemetry. 10. Thrombocytopenia, resolved. Heparin antibodies were checked and were negative. His platelet levels are within normal limits. Will continue with the heparin deep vein thrombosis prophylaxis dose twice a day. 11. Chronic steroid use. Continue with his prednisone 20 mg daily and he is currently on Mepron for his pneumocystis pneumoniae (PCP) prophylaxis. If his kidney function continues to be improved can consider switching him back to his home Bactrim dose for PCP prophylaxis versus the Mepron. 12. Deep vein thrombosis (DVT) prophylaxis. Continue with the heparin twice a day for his high risk for DVTs and pulmonary embolism (PE). 13. GI prophylaxis. Oral Protonix. 14. Diabetes mellitus. Continue with insulin coverage and Levemir. Dr. Parker addendum. I attended the patient with Dr. Vasquez and agree with the above history/physical and diagnostic assessment as written. While his clinical status is much improved he remains high risk for any intervention, particularly anaesthesia. I will discuss the situation with ENT. JEROME
[2019-12-03] MEDS ORDERED: SODIUM CHLORIDE 0.9% NASAL GEL 15GM (AYR) As Ordered ONE (12:56)
[2019-12-03] MEDS ORDERED: LIDOCAINE W/EPINEPHRINE 1% 20ML VIAL As Ordered ONE (12:56)
[2019-12-03] MEDS ORDERED: EPINEPHrine 1MG/ML INJ 30ML MD-VIAL As Ordered ONE (12:56)
[2019-12-03] MEDS ORDERED: METHYLENE BLUE 0.5% (5MG/ML) 10 ML AMP (PROVAYBLUE)(Q9968 PER 1MG) As Ordered ONE (12:56)
[2019-12-03 15:26] VITALS: BP 106/70
[2019-12-03 20:00] VITALS: BP 117/85
[2019-12-03] MEDS: ATORVASTATIN 20 MG TAB PO SCH (21:02)
[2019-12-04] VITALS: BP 105/71
[2019-12-04 04:00] VITALS: BP 115/60
[2019-12-04 05:51] LABS: BASO % 0.1 % (0.0-1.0); EOS # 0.5 10^3/uL (0.0-0.5); EOS % 2.5 % (0.0-3.0); HEMATOCRIT 43.3 % (42.0-52.0); HEMOGLOBIN 13.6 g/dl (13.5-17.5); LYMPH # 3.3 10^3/uL (1.5-5.0); LYMPH % 17.9 % (24.0-44.0); MEAN CORPUSCULAR HEMOGLOBIN 28.5 pg (27.0-33.0); MEAN CORPUSCULAR HGB CONC 31.4 g/dl (32.0-36.5); MEAN CORPUSCULAR VOLUME 90.6 fl (80.0-96.0); MONO # 1.7 10^3/uL (0.0-0.8); MONO % 9.4 % (0.0-5.0); NEUTROPHILS # 12.8 10^3/uL (1.5-8.5); NEUTROPHILS % 69.6 % (36.0-66.0); PLATELET COUNT, AUTOMATED 194 10^3/uL (150-450); RED BLOOD COUNT 4.78 10^6/uL (4.30-6.10); WHITE BLOOD COUNT 18.5 10^3/uL (4.0-10.0)
[2019-12-04] MEDS: SLF 3 ML SYR IV SCH ×3 (06:08→20:06)
[2019-12-04 06:17] LABS: BLOOD UREA NITROGEN 30 MG/DL (7-18); CALCIUM LEVEL 8.4 MG/DL (8.8-10.2); CARBON DIOXIDE LEVEL 39 MEQ/L (21-32); CHLORIDE LEVEL 95 MEQ/L (98-107); CREATININE FOR GFR 0.99 MG/DL (0.70-1.30); GLOMERULAR FILTRATION RATE > 60.0 (>42); GLUCOSE, FASTING 114 MG/DL (70-100); POTASSIUM SERUM 3.7 MEQ/L (3.5-5.1); SODIUM LEVEL 137 MEQ/L (136-145)
[2019-12-04] MEDS ORDERED: LORazepam 2 MG TAB PO ONE (06:45)
[2019-12-04] MEDS: ALBUTEROL SULFATE 2.5 MG/0.5 ML INH NEB SOLN INH SCH ×3 (07:19→19:21)
[2019-12-04] MEDS: TIOTROPIUM INHALER/CAPSULE (SPIRIVA) INH SCH (07:20)
[2019-12-04] MEDS: HumaLOG INSULIN (NovoLOG) PER UNIT SC SCH ×4 (07:35→20:05)
[2019-12-04 08:00] VITALS: BP 105/76
[2019-12-04] MEDS: SODIUM CHLORIDE NASAL 0.65% SPRAY BTL (OCEAN) SCH ×4 (09:00→20:05)
[2019-12-04] MEDS: MIRALAX *UNIT DOSE* 17GM PACKET PO SCH (09:11)
[2019-12-04] MEDS: LEVEMIR (INSULIN DETEMIR) 1 UNITS/0.01ML SC SCH ×2 (09:11→20:05)
[2019-12-04] MEDS: ATOVAQUONE SUSP 750MG/5ML 210 ML BTL PO SCH (09:11)
[2019-12-04] MEDS: POTASSIUM CHLORIDE 10 MEQ SR TABLET PO SCH ×2 (09:12→20:06)
[2019-12-04] MEDS: HEPARIN SOD (PORCINE) 5000UNITS/ML VIAL (J1644 PER 1000UNITS) SQ SCH ×2 (09:12→20:05)
[2019-12-04] MEDS: AUGMENTIN 875 MG TAB PO SCH ×2 (09:13→20:06)
[2019-12-04] MEDS: VITAMIN D 1,000 INTERNATIONAL UNITS TABLET PO SCH (09:13)
[2019-12-04] MEDS: PANTOPRAZOLE 20 MG TAB PO SCH (09:13)
[2019-12-04] MEDS: oxyCODONE 5MG TAB PO PRN (09:13)
[2019-12-04] MEDS: TORSEMIDE 20 MG TAB PO SCH ×2 (09:14→17:30)
[2019-12-04] MEDS: predniSONE 20 MG TAB PO SCH (09:14)
[2019-12-04] MEDS: ASPIRIN 81 MG CHEW TABLET GT SCH (09:14)
[2019-12-04] MEDS: CLOPIDOGREL 75 MG TAB PO SCH (09:14)
--- NOTE | 2019-12-04 10:34 | IPNPDOC ---
Text Note Date of Service The patient was seen on 12/04/19. NOTE Subjective: Had a small amount of epistaxis from the left nose last night. Sto pped spontaneously. Right with rhinorocket in place. Denies any SOB. Continues to have right sided and central chest pain. Is very depressed. Talking about dying and anxious. Asking the staff if he is going to . Objective: Vitals: see below. General: Obese, awake , alert, cooperative and oriented. Eyes: Anicteric, non injected, PERRLA, EOMI ENT: right nare with rhinorocket with some blood clots, left nare with blood clots. Neck: Thick, supple, no adenopathy, trachea midline , bruising on the right side. Chest: Normal air movement, dry crackles at the bases, few scattered bilateral wheezing. On 10 L oxygen through tent/mejia. Heart: Rate Normal, regular Rhythm, Normal S1, Normal S2, no noted murmurs, frequent PVcs in telemetry. Abdomen: Obese, normal bowel sounds, soft,, NTND Extremity: much improved now only trace LE edema, WWP, 2+ DP pulses, no tenderness Skin: normal turgor and temperature no breakdown or lesion Neuro: No focal neurodeficits. 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 Hospital course has been complicated by cardiac arrest on 11/27/19. This happened in PACU within 30 mins following rhinorocket removal in OR during which he was given fentanyl 100 mcg and versed 2 mg for light sedation. Had PEA a cardiac arrest, ROSC was 10 mins. Developed cardiogenic shock, shock liver, ERIN , acute on chronic hypoxic respiratory failure. He remained intubated till 11/30/19. Then successfully extubated, came off pressors, ERIN and shock liver resolved. However he has been having recurrent epistaxis which started on 12/02/19 on the right and then on the left on 12/03/19. Recurrent right epistaxis again on 12/02/19 night and left on 12/03/19 Rhinorocket in right , left stopped spontaneously. Augmentin to prevent sinusitis Discussed with ENT Dr Abraham. He recommended BABITA embolization for this recurrent epistaxis. Last time when he took to OR for rhinorocket removal he did not visualize and source of bleeding and so says further visualization is not going to be helpful. Spoke with [facility] ENT Dr Watkins and he spoke with Dr Abraham. He recommended to keep the Rhinorocket in longer 5 to 7 days. As per Interventional radiology in [facility] to do BABITA embolization patient will need anaesthesia and intubation and he is very high cardiac risk for the procedure. Dr Watkins wanted us to try the rhinorocket longer before going for the complicated procedure of BABITA embolization. Internal maxillary artery embolization can be done only in centers with neurointerventional radiologists. If starts bleeding massively again will call back [facility] for transfer. Frequent PVCS and NSVTs this is probably due to ischemic cardiomyopathy as it persisted even after correction of electrolyte abnormalities. He did have a bump in troponins after cardiac arrest but now down to 0.45 S/P PEA Cardiac arrest No neurodeficits S/P Cardiogenic Shock S/P Shock Liver transaminitis improving Acute on chronic hypoxemic respiratory failure: Due to CHF exacerbation on the back ground of chronic hypersensitivity pneumonitis with pulmonary fibrosis and COPD with chronic hypoxemic respiratory failure on 4L at rest s/p extubation, Now on 10L by tent. Now back on home prednisone of 20 mg daily. Was on Bactrim for PCP prophylaxis that was switched to atovaquone for concern for possible renal dysfunction. Continue Spiriva in place of Incruse. duoneb TID ERIN on his CKD: in the setting of his shock and cardiac arrest and acute CHF improved continue diuresis strict I/Os monitor electrolytes daily and replete aggressively Renally dose medications. Acute on Chronic HFpEF: with madie volume overload at this time and acute on chronic hypoxemia with severe pulmonary hypertension with cor pulmonale and HFpEF now s/p PEA arrest TTE showed elevated RVSP in the 80s with RV systolic dysfunction and continue oral diuretics continue his aspirin/ Plavix. Brief episode of Afib on 12/01/19 received digoxin. Leucocytosis on prednisone, on diuresis with rapidly audra volume status. procalcitonin not elevated No signs of infection. Hypokalemia continue replacement CAD s/p 4 stents < 1 year continue with his aspirin, Plavix Statin held in the setting of transaminitis Type 2 diabetes continue holding home oral meds sliding scale Lispro and levemir hypoglycemic protocol Acute Transaminitis and hyperbilirubinemia: improving Likely a combination of hepatic congestion as well as shock liver given his cardiac arrest and shock. continue to monitor, avoid hepatotoxic meds DVT ppx: SCDs and TEDs GI ppx: protonix PO Diet: consistent carb Code Status: DNR/DNI. New MOLST is completed and in chart. VS,Fishbone, I+O VS, Fishbone, I+O Laboratory Tests 12/04/19 05:00 Vital Signs Date Time Temp Pulse Resp B/P (MAP) Pulse Ox O2 Delivery O2 Flow Rate FiO2 12/04/19 09:13 21 Tent/Mejia 10.0 12/04/19 08:00 97.2 86 105/76 (86) 90 12/04/19 04:00 40 I&O- Last 24 Hours up to 6 AM 12/04/19 06:00 Intake Total 2070 ml Output Total 1900 ml Balance 170 ml ABI LOVE MD December 04, 2019 10:34
[2019-12-04 12:00] VITALS: BP 116/84
[2019-12-04] MEDS: BACTRIM 160MG/800MG DS TAB PO SCH (13:20)
--- NOTE | 2019-12-04 15:11 | IPN ---
DATE OF SERVICE: 12/04/2019 Mr. Castillo was seen and examined this morning. Overnight it was reported that his left nostril started bleeding but stopped without any intervention. The patient states he is unsure what caused it to start bleeding but it was not bleeding profusely out of his right nostril, which still has the Rhino Rocket. He does have some fresh blood noted around the Rhino Rocket and he does note having a postnasal drip sensation in the back of the throat. He on telemetry continues to have frequent PVCs as well as multiple beats of ventricular tachycardia (V-tach) less than 10. The patient states that he does have some discomfort to the right of the chest secondary to his cardiopulmonary resuscitation (CPR) but no anginal chest pain complaints. He does endorse having a productive cough. Discussed the case with Dr. Mayer, who states that [facility] did reject transfer for a intramaxillary embolization for he will need to be intubated and he will probably will not tolerate it. They did recommend that he continue with the Rhino Rocket in place for 5-7 days and reassess then. The patient was agreeable to this plan and had no other complaints this morning. PHYSICAL EXAMINATION: VITAL SIGNS: Temperature 97.2, pulse 86, respirations 18, blood pressure 105/76 (86), pulse oximetry 90% on a dudley tent high flow of 10 liters. INTAKE/OUTPUT: Intake total was 1770 mL, output total 1725 mL with a net balance of positive 45 mL. His weight this morning was not performed. The patient refused. GENERAL: This is a 69-year-old male who continues not to be in the best of mood this morning, still has the Rhino Rocket in place in his right nostril. Alert and oriented times three. HEENT: Atraumatic, normocephalic. Rhino Rocket in place in the right nare with some fresh blood appreciated at the base. Moist mucous membranes with dried blood appreciated in the posterior palate as well. I do not see any active bleeding noted as well today. Very thick, supple neck with no adenopathy. Slight bruising appreciated on the right chest, but secondary to his CPR, but healing appropriately. LUNGS: Clear to auscultate bilaterally. Bibasilar crackles appreciated at the base, which has continued to be at baseline, but no audible wheezing appreciated. HEART: Tachycardic rate, regular rhythm, with occasional PVCs on exam. No audible murmurs appreciated. ABDOMEN: Obese. Soft. Nontender. EXTREMITIES: Lower extremity pitting edema is actually currently 1-2+ up to mid calves bilaterally with no calf tenderness noted. NEUROLOGIC: No focal neurologic deficits noted. PSYCHIATRIC: Somber mood this morning. LABORATORY DATA: Hematology: WBC 18.5, hemoglobin 13.6, hematocrit 43.3, platelets 194. Chemistries: Sodium 137, potassium 3.7, chloride 95, carbon dioxide 39, anion gap 3, BUN 30, creatinine 0.99, fasting glucose 114, calcium 8.4. No new imaging. Blood cultures no growth after 5 days. ASSESSMENT AND PLAN: This is a 69-year-old male with multiple comorbidities who was admitted for epistaxis whose hospital course was complicated by cardiopulmonary arrest on 11/27/2019 post extubation on 11/30/2019. 1. Hypoxic respiratory failure significantly improved with IV diurese. He has currently transitioned to torsemide 20 mg daily. During his clinical exam he does have pitting edema on his lower extremities. So, we will transition him to his home dose of 20 mg at nighttime and 40 mg in the morning. His BUN and creatinine is tolerating very well. It is the best is has ever been with a creatinine today of 0.99. He is currently on 10 liters of high flow nasal cannula with a dudley tent delivery system. His baseline oxygen requirement is only 4 liters, but because of the Rhino Rocket being in place we will have to use the dudley system. He denies any shortness of breath or trouble breathing today. He does not appear in any acute respiratory distress. 2. Cardiogenic shock, resolved. 3. Hypervolemia, improving. We have transitioned him to his home dose of torsemide with 40 mg in the morning and 20 mg at night with potassium replacement of 40 mEq twice a day. 4. Acute kidney injury, resolved. His creatinine is at best today at 0.99. This is confirmation this is prerenal azotemia from reduced cardiac output and renal perfusion. Continue to monitor. 5. Epistaxis. He does have the Rhino Rocket is in place. Not a candidate for transfer. [facility] rejected the transfer on the fact that the patient will need to be intubated to have the internal maxillary artery embolization. They did recommend to keep the Rhino Rocket for 5-[address] The patient states that he does not want to be re-intubated. So, at this current time will continue with the Rhino Rocket as prescribed. He does have active bleeding on exam today, and continues on dual antiplatelet therapy due to his recent stent in July. So, it can be contributing to the easy bleeding. We will keep the Rhino Rocket in place and go from there. 6. Pulmonary hypertension secondary to his pigeon interstitial lung disease as well as underlying chronic obstructive pulmonary disease (COPD) from his smoking. Currently stable. Saturating appropriately. Will continue to monitor. 7. Shock liver, resolving. 8. Hypokalemia, secondary to diuresing, has resolved. He does have scheduled 40 mEq of potassium ordered. We will monitor to make sure he does not go hyperkalemic. 9. Frequent cardiac ectopy with frequent premature ventricular contractions and multiple beats of ventricular tachycardia. The patient denies any chest pain or anginal-like shortness of breath. It is possibly contributing from cardiac remodeling. Will continue to monitor while on telemetry. The patient is DO NOT RESUSCITATE, DO NOT INTUBATE. 10. Thrombocytopenia, resolved. 11. Chronic steroid use. He currently is on Mepron for pneumocystis pneumoniae (PCP) prophylaxis. Because his kidney function has improved we will switch him back to his home Bactrim dose double strength three times a week and monitor his kidney function. 12. Deep vein thrombosis (DVT) prophylaxis. Continue with heparin twice a day for his high risk for DVTs and pulmonary embolism (PE). 13. Gastrointestinal (GI) prophylaxis. Oral Protonix on board. 14. Diabetes mellitus. Continue with insulin coverage and Levemir as scheduled. Dr. Parker Addendum: I attended the patient with Dr. Calix and participated in the vickers elements of the history, physical exam, and medical decision making. I agree with the plans as stated. Conservative management may be the most prudent option at this point. JEROME
[2019-12-04 16:00] VITALS: BP 125/78
[2019-12-04 20:00] VITALS: BP 110/77
[2019-12-04] MEDS: ATORVASTATIN 20 MG TAB PO SCH (20:06)
[2019-12-05] VITALS (7 sets, daily range): BP systolic 101–119; BP diastolic 62–92
[2019-12-05] MEDS: LORazepam 0.5 MG TAB PO PRN ×2 (03:59→18:30)
[2019-12-05] MEDS: oxyCODONE 5MG TAB PO PRN (04:00)
--- NOTE | 2019-12-05 04:01 | IPN ---
DATE OF PROGRESS NOTE: 12/03/2019 Patient has developed recurrent epistaxis from the right naris in the evening of 12/02/2019. He received Rhino Rocket to achieve hemostasis. At this time, patient has no additional episodes of epistaxis since the placement of the Rhino Rocket. He is on Plavix and aspirin due to his recent placement of cardiac stents. His other medical comorbidities have been managed by hospitalist and pulmonary medicine at this time as well. On examination, patient appears in no acute distress. The right Rhino Rocket is in situ with the balloon inflated. No evidence of fresh blood on the posterior pharyngeal wall. No palpable cervical lymphadenopathy. Trachea midline. LABS: Hemoglobin 14.7 on 12/02/2019 and 14.5 on 12/03/2019. ASSESSMENT: A 69-year-old male with recurrent right epistaxis. PLAN: I have spoken to anesthesiologist production supervisor this morning regarding the risk of general anesthesia that may be needed to perform invasive surgical procedure, such as sphenopalatine artery ligation. The consensus was that the patient would be at very high risk of perioperative mortality given his recent cardiac arrest about 7 days ago. Alternative treatment modality, including embolization by interventional radiology option, has been explored. [facility] ([facility] has been contacted. Upon discussion with the on-call ear, nose, and throat (ENT) physician, Dr. Bill Watkins, the interventional radiologist would require patient to be off Plavix as well as the procedure to be performed under general anesthesia. As such, the decision was made to keep the nasal packing in situ for 5-[address] Watkins indicated that if the epistaxis recurs after the second nasal packing is removed, transfer to [facility] would be a reasonable option for consideration of embolization at that time. I have also discussed the case with my colleagues as well as the hospitalist and the pulmonary medicine specialist as well. At this time, the agreement is to keep the nasal packing in situ and manage his underlying medical comorbidities per hospitalist. Total time spent examining the patient, counseling the patient, as well as calling peers among the different specialties and facilities is 65 minutes. JEROME
[2019-12-05] MEDS: SLF 3 ML SYR IV SCH ×3 (05:27→20:51)
[2019-12-05 06:00] LABS: BASO % 0.2 % (0.0-1.0); EOS # 0.6 10^3/uL (0.0-0.5); EOS % 3.1 % (0.0-3.0); HEMATOCRIT 42.5 % (42.0-52.0); LYMPH % 19.4 % (24.0-44.0); MEAN CORPUSCULAR HEMOGLOBIN 29.7 pg (27.0-33.0); MEAN CORPUSCULAR HGB CONC 32.9 g/dl (32.0-36.5); MEAN CORPUSCULAR VOLUME 90.2 fl (80.0-96.0); MONO # 1.7 10^3/uL (0.0-0.8); MONO % 8.3 % (0.0-5.0); NEUTROPHILS % 68.4 % (36.0-66.0); PLATELET COUNT, AUTOMATED 206 10^3/uL (150-450); RED BLOOD COUNT 4.71 10^6/uL (4.30-6.10); WHITE BLOOD COUNT 20.4 10^3/uL (4.0-10.0)
[2019-12-05 06:27] LABS: BLOOD UREA NITROGEN 26 MG/DL (7-18); CALCIUM LEVEL 8.2 MG/DL (8.8-10.2); CARBON DIOXIDE LEVEL 33 MEQ/L (21-32); CHLORIDE LEVEL 95 MEQ/L (98-107); CREATININE FOR GFR 1.12 MG/DL (0.70-1.30); GLOMERULAR FILTRATION RATE > 60.0 (>42); GLUCOSE, FASTING 125 MG/DL (70-100); POTASSIUM SERUM 3.8 MEQ/L (3.5-5.1); SODIUM LEVEL 136 MEQ/L (136-145)
[2019-12-05 06:55] LABS: ALBUMIN 2.5 GM/DL (3.2-5.2); ALT/SGPT 238 U/L (12-78); BILIRUBIN,DIRECT 0.8 MG/DL (0.0-0.2); TOTAL PROTEIN 5.4 GM/DL (6.4-8.2)
[2019-12-05] MEDS: POTASSIUM CHLORIDE 10 MEQ SR TABLET PO SCH ×2 (08:48→20:50)
[2019-12-05] MEDS: ASPIRIN 81 MG CHEW TABLET GT SCH (08:48)
[2019-12-05] MEDS: AUGMENTIN 875 MG TAB PO SCH ×2 (08:48→20:50)
[2019-12-05] MEDS: CLOPIDOGREL 75 MG TAB PO SCH (08:48)
[2019-12-05] MEDS: TORSEMIDE 20 MG TAB PO SCH ×2 (08:48→18:07)
[2019-12-05] MEDS: predniSONE 20 MG TAB PO SCH (08:48)
[2019-12-05] MEDS: HumaLOG INSULIN (NovoLOG) PER UNIT SC SCH ×4 (08:49→20:51)
[2019-12-05] MEDS: PANTOPRAZOLE 20 MG TAB PO SCH (08:49)
[2019-12-05] MEDS: LEVEMIR (INSULIN DETEMIR) 1 UNITS/0.01ML SC SCH ×2 (08:50→20:50)
[2019-12-05] MEDS: HEPARIN SOD (PORCINE) 5000UNITS/ML VIAL (J1644 PER 1000UNITS) SQ SCH ×2 (08:50→20:50)
[2019-12-05] MEDS: SODIUM CHLORIDE NASAL 0.65% SPRAY BTL (OCEAN) SCH ×4 (08:51→20:56)
[2019-12-05] MEDS: TIOTROPIUM INHALER/CAPSULE (SPIRIVA) INH SCH (09:20)
[2019-12-05] MEDS: ALBUTEROL SULFATE 2.5 MG/0.5 ML INH NEB SOLN INH SCH ×3 (09:20→19:34)
[2019-12-05] MEDS: MIRALAX *UNIT DOSE* 17GM PACKET PO SCH (09:30)
--- NOTE | 2019-12-05 10:45 | IPNPDOC ---
Text Note Date of Service The patient was seen on 12/05/19. NOTE Subjective: No Epistaxis in the last [address] [facility] Feels a little better this am. Seems more cheerful and optimistic. This am say his low back and buttocks are really bothering him as he has been laying down all day. No fever or chills. Objective: Vitals: see below. General: Obese, awake , alert, cooperative and oriented. Eyes: Anicteric, non injected, PERRLA, EOMI ENT: right nare with rhinorocket with some blood clots, left nare with blood clots. Neck: Thick, supple, no adenopathy, trachea midline , bruising on the right side. Chest: Normal air movement, dry crackles at the bases, few scatterred bilateral wheezing. On 10 L oxygen through tent/mejia. Heart: Rate Normal, regular Rhythm, Normal S1, Normal S2, no noted murmurs, frequent PVcs in telemetry. Abdomen: Obese, normal bowel sounds, soft,, NTND Extremity: much improved now only trace LE edema, WWP, 2+ DP pulses, no tenderness Skin: normal turgor and temperature no breakdown or lesion Neuro: No focal neurodeficits. 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 Hospital course has been complicated by cardiac arrest on 11/27/19. This happened in PACU within 30 mins following rhinorocket removal in OR during which he was given fentanyl 100 mcg and versed 2 mg for light sedation. Had PEA a cardiac arrest, ROSC was 10 mins. Developed cardiogenic shock, shock liver, ERIN , acute on chronic hypoxic respiratory failure. He remained intubated till 11/30/19. Then successfully extubated, came off pressors, ERIN and shock liver resolved. However he has been having recurrent epistaxis which started on 12/02/19 on the right and then on the left on 12/03/19. Recurrent right epistaxis again on 12/02/19 night and left on 12/03/19 Rhinorocket in right , left stopped spontaneously. Augmentin to prevent sinusitis Spoke with [facility] ENT Dr Watkins and he spoke with Dr Abraham. He recommended to keep the Rhinorocket in longer 5 to 7 days. As per Interventional radiology in [facility] to do BABITA embolization patient will need anaesthesia and intubation and he is very high cardiac risk for the procedure. Dr Watkins wanted us to try the rhinorocket longer before going for the complicated procedure of BABITA embolization. If he bleeds again after the removal of the rocket a second time then he will need to be transferred. Frequent PVCS and NSVTs this is probably due to ischemic cardiomyopathy as it persisted even after correction of electrolyte abnormalities. 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 s/p extubation, currently on 10 l by tent. Now back on home prednisone of 20 mg daily. Back to bactrim for PCP now that renal function has improved. Continue Spiriva in place of Incruse. duoneb TID ERIN on his CKD: in the setting of his shock and cardiac arrest and acute CHF improved continue diuresis strict I/Os monitor electrolytes daily and replete aggressively Renally dose medications. Acute on Chronic HFpEF: with madie volume overload at this time and acute on chronic hypoxemia with severe pulmonary hypertension with cor pulmonale and HFpEF , s/p PEA arrest TTE showed elevated RVSP in the 80s with RV systolic dysfunction and cotinue oral diuretics continue his aspirin/ Plavix. Brief episode of Afib on 12/01/19 received digoxin. Leucocytosis on prednisone, on diuresis with rapidly audra volume status. procalcitonin not elevated No signs of infection. Hypokalemia continue replacement CAD s/p 4 stents < 1 year continue with his aspirin, Plavix Statin held in the setting of transaminitis Type 2 diabetes continue holding home oral meds sliding scale Lispro and levemir hypoglycemic protocol Acute Transaminitis and hyperbilirubinemia: improving Likely a combination of hepatic congestion as well as shock liver given his cardiac arrest and shock. continue to monitor, avoid hepatotoxic meds DVT ppx: SCDs and TEDs GI ppx: protonix PO Diet: consistent carb Code Status: DNR/DNI. New MOLST is completed and in chart. VS,Fishbone, I+O VS, Fishbone, I+O Laboratory Tests 12/05/19 05:38 Vital Signs Date Time Temp Pulse Resp B/P (MAP) Pulse Ox O2 Delivery O2 Flow Rate FiO2 12/05/19 07:36 97.3 87 22 119/92 (101) 91 12/05/19 04:00 Tent/Mejia 10.0 12/05/19 04:00 40 I&O- Last 24 Hours up to 6 AM 12/05/19 06:00 Intake Total 1030 ml Output Total 1650 ml Balance -620 ml ABI LOVE MD December 05, 2019 10:45
--- NOTE | 2019-12-05 13:11 | IPN ---
DATE OF SERVICE: 12/05/2019 Mr. Castillo was seen and examined this morning during bedside rounds. He is a much more pleasant mood this morning. He stated that he would like his blood pressure and his pulse oximetry checked with me at bedside for he would feel better. He really has no complaints with the exception of his right chest wall continues to hurt, but he has no other complaints this morning. He continues to have occasional PVCs and ventricular tachycardia with no anginal chest pain complaints. He would like to have a bowel movement this morning. His weight this morning was 103.4 kg. He noticed his lower extremity edema has improved, but is not back to his best, which was two days ago. He has no other complaints at this current time. No other nursing events were reported. PHYSICAL EXAMINATION: VITAL SIGNS: Temperature 97.3, pulse 87, respirations 22, blood pressure 119/92 (MAP 101), pulse oximetry 91% on 10 liters of oxygen flow on a hooded tent delivery system. INTAKE/OUTPUT: Intake total was 1230 mL, output total 1400 mL , balance of negative 170 mL. Weight this morning 103.4 kg. GENERAL: This is a very pleasant 69-year-old male who is in a much more pleasant mood this morning, alert and oriented times three, and appropriately answering questions, in no acute distress. HEENT: Atraumatic, normocephalic. Rhino Rocket in place in the right nare with dried blood noted. No fresh blood noted today. Moist mucous membranes with dried blood appreciated in the posterior palate has improved. Continues to see no active bleeding in the back of the throat. Very thick neck. No adenopathy. Continues to have bruising over the right chest, which is healing appropriately. LUNGS: Clear to auscultate bilaterally. Continues to have bibasilar crackles. No audible wheezing, rhonchi or rales. HEART: Tachycardic rate, regular rhythm, and continues to have occasional PVCs on exam. Kind of difficult to appreciate audible murmurs because of tachycardic rate and due to oxygen delivery system. ABDOMEN: Obese. Soft. Nontender. EXTREMITIES: Lower extremity pitting edema 1+ to right above the ankles, which is improved since yesterday. No calf tenderness. NEUROLOGIC: No focal deficits noted. Appropriately answering questions, alert and oriented times three. PSYCHIATRIC: Much more appropriate this morning and very pleasant. LABORATORY DATA: Hematology: WBC 20.4, hemoglobin 14.0, hematocrit 42.5, platelets 206. Chemistries: Sodium 136, potassium 3.8, chloride 95, carbon dioxide 33, anion gap 8, BUN 26, creatinine 1.12, fasting glucose 125, calcium 8.2, total bilirubin 3.0, AST 51, ALT 238, total protein 5.4. Microbiology: Blood culture no growth. IMAGING: No new imaging. ASSESSMENT AND PLAN: This is a 69-year-old male with multiple comorbidities who was admitted for epistaxis whose hospital course was complicated with cardiopulmonary arrest on 11/27/2019 with post extubation on 11/30/2019. 1. Hypoxic respiratory failure, resolved. His lung exam is clear to auscultate bilaterally with continued bibasilar crackles appreciated. He is off of IV Lasix and has transitioned back to his home torsemide dose of 40 mg in the morning and 20 mg in the evening. He is on baseline 4 liters of oxygen because of the Rhino Rocket in his nare. He is on dudley tent delivery system of 10 liters of oxygen and is satting at 91% to 92%. No shortness of breath or acute respiratory distress noted on exam. 2. Cardiogenic shock, has been resolved. 3. Decompensated reduced ejection fraction heart failure. We have transitioned him back to his home torsemide. His lower extremity edema has improved from yesterday, but he did gain at least 4 kg since 2 days ago. He is currently on 40 mg of torsemide in the morning in the 20 mg of torsemide in the evening time. We will need to make sure that the patient does not retain any fluids. If we need to do a one time dose of 40 mg of Lasix IV we can or we need to increase his home torsemide dose to make sure he achieves a euvolemic state once he is being discharged. Continue with the fluid restriction of 1.5 liters. 4. Acute kidney injury. His BUN and creatinine has slightly bumped up, possibly secondary to the problem above from his diastolic heart failure. He is slightly retaining fluid today and possibly has decreased perfusion. Will continue to monitor as he does have good urine output and we just need to make sure he has good urine output. 5. Epistaxis. He continues to have the Rhino Rocket in place. This is currently day three of the Rhino Rocket. There is no fresh blood noted on the Rhino Rocket, so it appears it has currently stopped bleeding. He is not a candidate for an intramaxillary artery embolization because he will not tolerate intubation for this procedure. At this current time, the recommendation is to continue with Rhino Rocket for at least 5-7 days prior to removing it. The reason he has easy bleeding is because of his severe pulmonary hypertension as well as the fact of being on dual antiplatelet therapy due to his recent stent in July. Will continue to monitor him. Dr. Abraham was consulted and is following along from a distance. 6. Pulmonary hypertension secondary to his pigeon interstitial lung disease as well as underlying chronic obstructive pulmonary disease (COPD) from his smoking. Currently stable. Saturating appropriately. Continue to monitor. 7. Hypokalemia secondary to diuresing. He does have scheduled 40 mEq of potassium ordered which he is tolerating very well. This morning, his potassium was within normal limits at 3.8. Will continue to monitor and make we do not have to reduce that potassium that is scheduled. 8. Frequent cardiac ectopy and frequent premature ventricular contractions with multiple beats of ventricular tachycardia. Continues to deny any anginal-like chest pain or shortness of breath. Possibly contributing from his cardiac remodeling. The patient is DO NOT RESUSCITATE, DO NOT INTUBATE. There is no electrolyte imbalance noted. 10. Thrombocytopenia, resolved. 11. Deep vein thrombosis (DVT) prophylaxis. Heparin twice a day for his high risk for DVTs and pulmonary embolism (PE). 12. Gastrointestinal (GI) prophylaxis. Protonix. 13. Diabetes mellitus. Continue with insulin coverage and Levemir as scheduled. Dr. Parker addendum: I participated in the vickers elements of the patient evaluation and agree with the documentation above. The patient is improved on some elements but remains critically ill with a guarded prognosis. CRITICAL CARE TIME: forty seven minutes exclusive of procedure time MTDD
[2019-12-05] MEDS: ATORVASTATIN 20 MG TAB PO SCH (20:49)
[2019-12-06] VITALS: BP 105/75
[2019-12-06] MEDS: oxyCODONE 5MG TAB PO PRN ×2 (04:34→12:44)
[2019-12-06] MEDS: SLF 3 ML SYR IV SCH ×3 (06:20→22:24)
[2019-12-06] MEDS: TIOTROPIUM INHALER/CAPSULE (SPIRIVA) INH SCH (07:14)
[2019-12-06] MEDS: ALBUTEROL SULFATE 2.5 MG/0.5 ML INH NEB SOLN INH SCH ×3 (07:14→20:19)
[2019-12-06] MEDS: HumaLOG INSULIN (NovoLOG) PER UNIT SC SCH ×4 (07:30→22:30)
[2019-12-06] MEDS: TORSEMIDE 20 MG TAB PO SCH ×2 (10:29→18:09)
[2019-12-06] MEDS: ASPIRIN 81 MG CHEW TABLET GT SCH (10:29)
[2019-12-06] MEDS: AUGMENTIN 875 MG TAB PO SCH ×2 (10:29→22:21)
[2019-12-06] MEDS: PANTOPRAZOLE 20 MG TAB PO SCH (10:30)
[2019-12-06] MEDS: BACTRIM 160MG/800MG DS TAB PO SCH (10:30)
[2019-12-06] MEDS: CLOPIDOGREL 75 MG TAB PO SCH (10:30)
[2019-12-06] MEDS: predniSONE 20 MG TAB PO SCH (10:30)
[2019-12-06] MEDS: POTASSIUM CHLORIDE 10 MEQ SR TABLET PO SCH ×2 (10:30→22:22)
[2019-12-06] MEDS: HEPARIN SOD (PORCINE) 5000UNITS/ML VIAL (J1644 PER 1000UNITS) SQ SCH ×2 (10:31→22:22)
[2019-12-06] MEDS: MIRALAX *UNIT DOSE* 17GM PACKET PO SCH (10:31)
[2019-12-06] MEDS: LEVEMIR (INSULIN DETEMIR) 1 UNITS/0.01ML SC SCH ×3 (10:32→22:22)
[2019-12-06 12:00] VITALS: BP 98/65
--- NOTE | 2019-12-06 12:33 | IPNPDOC ---
Text Note Date of Service The patient was seen on 12/06/19. NOTE Subjective: No Epistaxis in the last [address] on the right. He apparently said he wants to be [employer]PECT[employer] last night. When i wanted to confirm with him he says that he does not want hospice, he wants all his medications, he wants antibiotics and IVF if needed, He wants blood test done if needed, he wants a trial of feeding tube if needed. Son who is the HCP was also in the room. Patient was very clear that he just wanted something for his pain and anxiety to help him be comfortable. IF his heart stops he does not want CPR and does not want to be put on a ventilator if his breathing stops however he wants to continue all his other treatments. Updated MOLST form to DNi/DNR status. 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 Objective: Vitals: see below. General: Obese, awake , alert, cooperative and oriented. Eyes: Anicteric, non injected, PERRLA, EOMI ENT: right nare with rhinorocket with some blood clots, left nare with blood clots. Neck: Thick, supple, no adenopathy, trachea midline , bruising on the right side. Chest: Normal air movement, dry crackles at the bases, few scatterred bilateral wheezing. On 10 L oxygen through tent/mejia. Heart: Rate Normal, regular Rhythm, Normal S1, Normal S2, no noted murmurs, frequent PVcs in telemetry. Abdomen: Obese, normal bowel sounds, soft,, NTND Extremity: much improved now only trace LE edema, WWP, 2+ DP pulses, no tenderness Skin: normal turgor and temperature no breakdown or lesion Neuro: No focal neurodeficits. 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 Hospital course has been complicated by cardiac arrest on 11/27/19. This happened in PACU within 30 mins following rhinorocket removal in OR during which he was given fentanyl 100 mcg and versed 2 mg for light sedation. Had PEA a cardiac arrest, ROSC was 10 mins. Developed cardiogenic shock, shock liver, ERIN , acute on chronic hypoxic respiratory failure. He remained intubated till 11/30/19. Then successfully extubated, came off pressors, ERIN and shock liver reso lved. However he has been having recurrent epistaxis which started on 12/02/19 on the right and then on the left on 12/03/19. Recurrent right epistaxis again on 12/02/19 night and left on 12/03/19 Rhinorocket in right , left stopped spontaneously. Augmentin to prevent sinusitis Spoke with [facility] ENT Dr Watkins and he spoke with Dr Abraham. He recommended to keep the Rhinorocket in longer 5 to 7 days. As per Interventional radiology in [facility] to do BABITA embolization patient will need anaesthesia and intubation and he is very high cardiac risk for the procedure. Dr Watkins wanted us to try the rhinorocket longer before going for the complicated procedure of BABITA embolization. If he bleeds again after the removal of the rocket a second time then he will need to be transferred. planned for OR removal of rhinorocket on Monday. Dr Cunha requested cardiology assessment prior to going to OR Frequent PVCS and NSVTs this is probably due to ischemic cardiomyopathy as it persisted even after correction of electrolyte abnormalities. He did have a bump in troponins after cardiac arrest but now down to 0.45 Now less. 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 s/p extubation, currently on 10 l by tent. Now back on home prednisone of 20 mg daily. Back to bactrim for PCP now that renal function has improved. Continue Spiriva in place of Incruse. duoneb TID ERIN on his CKD: in the setting of his shock and cardiac arrest and acute CHF improved continue diuresis strict I/Os monitor electrolytes daily and replete aggressively Renally dose medications. Acute on Chronic HFpEF: with madie volume overload at this time and acute on chronic hypoxemia with severe pulmonary hypertension with cor pulmonale and HFpEF , s/p PEA arrest TTE showed elevated RVSP in the 80s with RV systolic dysfunction and continue oral diuretics continue his aspirin/ Plavix. Brief episode of Afib on 12/01/19 received digoxin. Leucocytosis on prednisone, on diuresis with rapidly audra volume status. procalcitonin not elevated No signs of infection. Hypokalemia continue replacement CAD s/p 4 stents < 1 year continue with his aspirin, Plavix Statin held in the setting of transaminitis Type 2 diabetes continue holding home oral meds sliding scale Lispro and levemir hypoglycemic protocol Acute Transaminitis and hyperbilirubinemia: improving Likely a combination of hepatic congestion as well as shock liver given his cardiac arrest and shock. continue to monitor, avoid hepatotoxic meds DVT ppx: SCDs and TEDs GI ppx: protonix PO Diet: consistent carb Code Status: DNR/DNI. New MOLST is completed and in chart. VS,Fishbone, I+O VS, Fishbone, I+O Vital Signs Date Time Temp Pulse Resp B/P (MAP) Pulse Ox O2 Delivery O2 Flow Rate FiO2 12/06/19 05:04 18 12/06/19 00:00 8.0 40 12/06/19 00:00 97.3 74 105/75 (85) 94 Tent/Mejia I&O- Last 24 Hours up to 6 AM 12/06/19 06:00 Intake Total 1620 ml Output Total 1450 ml Balance 170 ml ABI LOVE MD December 06, 2019 12:33
[2019-12-06 16:00] VITALS: BP 113/78
[2019-12-06 19:59] VITALS: BP 122/75
[2019-12-07] VITALS: BP 113/76
[2019-12-07 04:00] VITALS: BP 116/84
[2019-12-07] MEDS: SLF 3 ML SYR IV SCH ×3 (05:40→21:08)
[2019-12-07] MEDS: HumaLOG INSULIN (NovoLOG) PER UNIT SC SCH ×4 (07:30→21:00)
[2019-12-07 08:00] VITALS: BP 119/72
[2019-12-07] MEDS: TIOTROPIUM INHALER/CAPSULE (SPIRIVA) INH SCH (08:35)
[2019-12-07] MEDS: ALBUTEROL SULFATE 2.5 MG/0.5 ML INH NEB SOLN INH SCH ×3 (08:35→20:17)
[2019-12-07] MEDS: HEPARIN SOD (PORCINE) 5000UNITS/ML VIAL (J1644 PER 1000UNITS) SQ SCH (08:51)
[2019-12-07] MEDS: MIRALAX *UNIT DOSE* 17GM PACKET PO SCH (08:51)
[2019-12-07] MEDS: ASPIRIN 81 MG CHEW TABLET GT SCH (08:51)
[2019-12-07] MEDS: AUGMENTIN 875 MG TAB PO SCH ×2 (08:51→21:05)
[2019-12-07] MEDS: TORSEMIDE 20 MG TAB PO SCH ×2 (08:52→17:44)
[2019-12-07] MEDS: POTASSIUM CHLORIDE 10 MEQ SR TABLET PO SCH ×2 (08:52→21:05)
[2019-12-07] MEDS: PANTOPRAZOLE 20 MG TAB PO SCH (08:52)
[2019-12-07] MEDS: CLOPIDOGREL 75 MG TAB PO SCH (08:52)
[2019-12-07] MEDS: predniSONE 20 MG TAB PO SCH (08:53)
[2019-12-07 12:22] VITALS: BP 138/87
[2019-12-07] MEDS: guaiFENesin ER 600 MG TAB PO SCH ×2 (12:41→21:06)
[2019-12-07 16:00] VITALS: BP 133/74
[2019-12-07 20:00] VITALS: BP 138/92
[2019-12-07] MEDS: LEVEMIR (INSULIN DETEMIR) 1 UNITS/0.01ML SC SCH (21:04)
[2019-12-07] MEDS: oxyCODONE 5MG TAB PO PRN (21:06)
[2019-12-08] VITALS: BP 100/76
[2019-12-08 04:00] VITALS: BP 98/68
[2019-12-08 05:55] LABS: BASO # 0.1 10^3/uL (0.0-0.2); BASO % 0.3 % (0.0-1.0); EOS # 0.6 10^3/uL (0.0-0.5); EOS % 3.1 % (0.0-3.0); HEMATOCRIT 45.2 % (42.0-52.0); HEMOGLOBIN 14.2 g/dl (13.5-17.5); LYMPH # 4.2 10^3/uL (1.5-5.0); LYMPH % 22.7 % (24.0-44.0); MEAN CORPUSCULAR HGB CONC 31.4 g/dl (32.0-36.5); MEAN CORPUSCULAR VOLUME 92.4 fl (80.0-96.0); MONO # 1.6 10^3/uL (0.0-0.8); MONO % 8.7 % (0.0-5.0); NEUTROPHILS # 11.9 10^3/uL (1.5-8.5); NEUTROPHILS % 64.7 % (36.0-66.0); PLATELET COUNT, AUTOMATED 309 10^3/uL (150-450); RED BLOOD COUNT 4.89 10^6/uL (4.30-6.10); WHITE BLOOD COUNT 18.4 10^3/uL (4.0-10.0)
[2019-12-08] MEDS: SLF 3 ML SYR IV SCH ×3 (06:07→21:53)
[2019-12-08 06:14] LABS: BLOOD UREA NITROGEN 16 MG/DL (7-18); CALCIUM LEVEL 8.2 MG/DL (8.8-10.2); CARBON DIOXIDE LEVEL 29 MEQ/L (21-32); CHLORIDE LEVEL 102 MEQ/L (98-107); CREATININE FOR GFR 1.22 MG/DL (0.70-1.30); GLOMERULAR FILTRATION RATE > 60.0 (>42); GLUCOSE, FASTING 92 MG/DL (70-100); POTASSIUM SERUM 4.3 MEQ/L (3.5-5.1); SODIUM LEVEL 138 MEQ/L (136-145)
[2019-12-08] MEDS: HumaLOG INSULIN (NovoLOG) PER UNIT SC SCH ×4 (07:30→21:00)
[2019-12-08 08:00] VITALS: BP 117/72
[2019-12-08] MEDS: ALBUTEROL SULFATE 2.5 MG/0.5 ML INH NEB SOLN INH SCH ×3 (08:11→19:55)
[2019-12-08] MEDS: TIOTROPIUM INHALER/CAPSULE (SPIRIVA) INH SCH (08:11)
[2019-12-08] MEDS: MIRALAX *UNIT DOSE* 17GM PACKET PO SCH (09:27)
[2019-12-08] MEDS: POTASSIUM CHLORIDE 10 MEQ SR TABLET PO SCH ×2 (09:28→21:13)
[2019-12-08] MEDS: LEVEMIR (INSULIN DETEMIR) 1 UNITS/0.01ML SC SCH ×2 (09:28→21:13)
[2019-12-08] MEDS: guaiFENesin ER 600 MG TAB PO SCH ×2 (09:29→21:13)
[2019-12-08] MEDS: ASPIRIN 81 MG CHEW TABLET GT SCH (09:29)
[2019-12-08] MEDS: PANTOPRAZOLE 20 MG TAB PO SCH (09:29)
[2019-12-08] MEDS: AUGMENTIN 875 MG TAB PO SCH ×2 (09:29→21:13)
[2019-12-08] MEDS: TORSEMIDE 20 MG TAB PO SCH ×2 (09:30→17:52)
[2019-12-08] MEDS: CLOPIDOGREL 75 MG TAB PO SCH (09:30)
[2019-12-08] MEDS: predniSONE 20 MG TAB PO SCH (09:30)
--- NOTE | 2019-12-08 11:03 | IPNPDOC ---
Text Note Date of Service The patient was seen on 12/08/19. NOTE Subjective: No Epistaxis at present. Rhinorocket in place on the right. Spoke with Dr Brandt on 12/07/19 and he recommended patient is very high risk and should be transferred to [facility] . Spoke with [facility] transfer center and utilization doctor Dr Gomes. hen our ENT dr Abraham spoke with their ENT Dr Gutierrez on 12/07/19. [facility] determined that the pateint does not need transfer at this time and can be managed at our hospital. The plan is to remove the rhinorocket in 7 to 10 days, Will stop heparin. Pateint very anxious this am. As per nurses and patient he has not slept in the last 48 hours . Just has been napping for short periods. This am patient tells me he was confused, his head was not working right and he was jumping at noises. Denies any sob, denies any cough or phlegm, has 2+ pedal edema. No fever or chills. Objective: Vitals: see below. General: Obese, awake , alert, cooperative and oriented. Eyes: Anicteric, non injected, PERRLA, EOMI ENT: right nare with rhinorocket with some blood clots, left nare clean. Neck: Thick, supple, no adenopathy, trachea midline Chest: Normal air movement, dry crackles at the bases. On 10 L oxygen through tent/mejia. Heart: Rate Normal, regular Rhythm, Normal S1, Normal S2, no noted murmurs Abdomen: Obese, normal bowel sounds, soft,, NTND Extremity: Edema slightly increased. 1 to 2+ Skin: normal turgor and temperature no breakdown or lesion Neuro: No focal neurodeficits. 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 Hospital course has been complicated by cardiac arrest on 11/27/19. This happened in PACU within 30 mins following rhinorocket removal in OR during which he was given fentanyl 100 mcg and versed 2 mg for light sedation. Had PEA a cardiac arrest, ROSC was 10 mins. Developed cardiogenic shock, shock liver, ERIN , acute on chronic hypoxic respiratory failure. He remained intubated till 11/30/19. Then successfully extubated, came off pressors, ERIN and shock liver resolved. However he has been having recurrent epistaxis which started on 12/02/19 on the right and then on the left on 12/03/19. Recurrent right epistaxis again on 12/02/19 night and left on 12/03/19 Rhinorocket in right , left stopped spontaneously. Augmentin to prevent sinusitis Spoke with [facility] ENT Dr Watkins and he spoke with Dr Abraham. He recommended to keep the Rhinorocket in longer 5 to 7 days. As per Interventional radiology in [facility] to do BABITA embolization patient will need anaesthesia and intubation and he is very high cardiac risk for the procedure. Dr Watkins wanted us to try the rhinorocket longer before going for the complicated procedure of BABITA embolization. If he bleeds again after the removal of the rocket a second time then he will need to be transferred. planned for OR removal of rhinorocket on Monday. Dr Abraham requested cardiology assessment prior to going to OR. Spoke to Dr Brandt very high risk patient and he recommended transfer. However [facility] refused transfer at this time. Dr Marshall spoke with their ENT dr Gutierrez. Frequent PVCS and NSVTs this is probably due to ischemic cardiomyopathy as it persisted even after correction of electrolyte abnormalities. 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 s/p extubation, currently on 10 l by tent. Now back on home prednisone of 20 mg daily. Back to bactrim for PCP now that renal function has improved. Continue Spiriva in place of Incruse. duoneb TID ERIN on his CKD: in the setting of his shock and cardiac arrest and acute CHF improved continue diuresis strict I/Os monitor electrolytes daily and replete aggressively Renally dose medications. Acute on Chronic HFpEF: with madie volume overload at this time and acute on chronic hypoxemia with severe pulmonary hypertension with cor pulmonale and HFpEF , s/p PEA arrest TTE showed elevated RVSP in the 80s with RV systolic dysfunction and continue oral diuretics continue his aspirin/ Plavix. Brief episode of Afib on 12/01/19 received digoxin. Leucocytosis on prednisone, on diuresis with rapidly audra volume status. procalcitonin not elevated No signs of infection. Hypokalemia continue replacement CAD s/p 4 stents < 1 year continue with his aspirin, Plavix Statin held in the setting of transaminitis Type 2 diabetes continue holding home oral meds sliding scale Lispro and levemir hypoglycemic protocol Acute Transaminitis and hyperbilirubinemia: improving Likely a combination of hepatic congestion as well as shock liver given his cardiac arrest and shock. continue to monitor, avoid hepatotoxic meds DVT ppx: SCDs and TEDs GI ppx: protonix PO Diet: consistent carb Code Status: DNR/DNI. New MOLST is completed and in chart. VS,Fishbone, I+O VS, Fishbone, I+O Laboratory Tests 12/08/19 05:35 Vital Signs Date Time Temp Pulse Resp B/P (MAP) Pulse Ox O2 Delivery O2 Flow Rate FiO2 12/08/19 08:00 96.9 85 16 117/72 (87) 94 Tent/Mejia 8.0 12/08/19 04:00 35 l I&O- Last 24 Hours up to 6 AM 12/08/19 06:00 Intake Total 1220 ml Output Total 1575 ml Balance -355 ml ABI LOVE MD December 08, 2019 11:03
--- NOTE | 2019-12-08 11:03 | IPNPDOC ---
Text Note Date of Service The patient was seen on 12/07/19. NOTE Subjective: Feeling ok this morning. Chest pain is better. His pack is in place. Appears dry at this time. Sitting up in chair. no Nausea or vomiting. regular bowel movements. Oxygen requirement slightly down. Objective: Vitals: see below. General: Obese, awake , alert, cooperative and oriented. Eyes: Anicteric, non injected, PERRLA, EOMI ENT: right nare with rhinorocket with some blood clots, left nare with blood clots. Neck: Thick, supple, no adenopathy, trachea midline , bruising on the right side. Chest: Normal air movement, dry crackles at the bases, few scatterred bilateral wheezing. On 10 L oxygen through tent/mejai. Heart: Rate Normal, regular Rhythm, Normal S1, Normal S2, no noted murmurs, frequent PVcs in telemetry. Abdomen: Obese, normal bowel sounds, soft,, NTND Extremity: much improved now only trace LE edema, WWP, 2+ DP pulses, no tenderness Skin: normal turgor and temperature no breakdown or lesion Neuro: No focal neurodeficits. 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 Hospital course has been complicated by cardiac arrest on 11/27/19. This happened in PACU within 30 mins following rhinorocket removal in OR during which he was given fentanyl 100 mcg and versed 2 mg for light sedation. Had PEA a cardiac arrest, ROSC was 10 mins. Developed cardiogenic shock, shock liver, ERIN , acute on chronic hypoxic respiratory failure. He remained intubated till 11/30/19. Then successfully extubated, came off pressors, ERIN and shock liver resolved. However he has been having recurrent epistaxis which started on 12/02/19 on the right and then on the left on 12/03/19. Recurrent right epistaxis again on 12/02/19 night and left on 12/03/19 Rhinorocket in right , left stopped spontaneously. Augmentin to prevent sinusitis Spoke with [facility] ENT Dr Watkins and he spoke with Dr Abraham. He recommended to keep the Rhinorocket in longer 5 to 7 days. As per Interventional radiology in [facility] to do BABITA embolization patient will need anaesthesia and intubation and he is very high cardiac risk for the procedure. Dr Watkins wanted us to try the rhinorocket longer before going for the complicated procedure of BABITA embolization. If he bleeds again after the removal of the rocket a second time then he will need to be transferred. planned for OR removal of rhinorocket on Monday. Dr Cunha requested cardiology assessment prior to going to OR. Spoke with Dr Brandt and as per him he is a very high cardiac risk for any procedure that will require sedation. Frequent PVCS and NSVTs this is probably due to ischemic cardiomyopathy as it persisted even after correction of electrolyte abnormalities. He did have a bump in troponins after cardiac arrest but now down to 0.45 Now less. 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 s/p extubation, currently on 10 l by tent. Now back on home prednisone of 20 mg daily. Back to bactrim for PCP now that renal function has improved. Continue Spiriva in place of Incruse. duoneb TID ERIN on his CKD: in the setting of his shock and cardiac arrest and acute CHF improved continue diuresis strict I/Os monitor electrolytes daily and replete aggressively Renally dose medications. Acute on Chronic HFpEF: with madie volume overload at this time and acute on chronic hypoxemia with severe pulmonary hypertension with cor pulmonale and HFpEF , s/p PEA arrest TTE showed elevated RVSP in the 80s with RV systolic dysfunction and continue oral diuretics continue his aspirin/ Plavix. Brief episode of Afib on 12/01/19 received digoxin. Leucocytosis on prednisone, on diuresis with rapidly audra volume status. procalcitonin not elevated No signs of infection. Hypokalemia continue replacement CAD s/p 4 stents < 1 year continue with his aspirin, Plavix Statin held in the setting of transaminitis Type 2 diabetes continue holding home oral meds sliding scale Lispro and levemir hypoglycemic protocol Acute Transaminitis and hyperbilirubinemia: improving Likely a combination of hepatic congestion as well as shock liver given his cardiac arrest and shock. continue to monitor, avoid hepatotoxic meds DVT ppx: SCDs and TEDs GI ppx: protonix PO Diet: consistent carb Code Status: DNR/DNI. New MOLST is completed and in chart. VS,Fishbone, I+O VS, Fishbone, I+O Vital Signs Date Time Temp Pulse Resp B/P (MAP) Pulse Ox O2 Delivery O2 Flow Rate FiO2 12/07/19 12:22 97.5 93 22 138/87 (104) 93 Tent/Mejia 8.0 12/07/19 08:00 35 I&O- Last 24 Hours up to 6 AM 12/07/19 06:00 Intake Total 60 ml Output Total 750 ml Balance -690 ml ABI LOVE MD December 07, 2019 12:44
[2019-12-08 12:00] VITALS: BP 110/70
[2019-12-08 16:00] VITALS: BP 98/60
[2019-12-08] MEDS: ACETAMINOPHEN 500 MG TAB PO PRN (18:40)
[2019-12-08 21:18] VITALS: BP 101/64
[2019-12-09] VITALS: BP 102/74
[2019-12-09 03:43] VITALS: BP 107/76
[2019-12-09 06:06] LABS: BASO % 0.3 % (0.0-1.0); EOS # 0.6 10^3/uL (0.0-0.5); EOS % 3.9 % (0.0-3.0); HEMOGLOBIN 13.8 g/dl (13.5-17.5); LYMPH # 3.8 10^3/uL (1.5-5.0); LYMPH % 24.8 % (24.0-44.0); MEAN CORPUSCULAR HEMOGLOBIN 29.7 pg (27.0-33.0); MEAN CORPUSCULAR HGB CONC 32.1 g/dl (32.0-36.5); MEAN CORPUSCULAR VOLUME 92.7 fl (80.0-96.0); MONO # 1.3 10^3/uL (0.0-0.8); MONO % 8.8 % (0.0-5.0); NEUTROPHILS # 9.4 10^3/uL (1.5-8.5); NEUTROPHILS % 61.6 % (36.0-66.0); PLATELET COUNT, AUTOMATED 296 10^3/uL (150-450); RED BLOOD COUNT 4.64 10^6/uL (4.30-6.10); WHITE BLOOD COUNT 15.2 10^3/uL (4.0-10.0)
[2019-12-09 06:26] LABS: BLOOD UREA NITROGEN 15 MG/DL (7-18); CALCIUM LEVEL 7.8 MG/DL (8.8-10.2); CARBON DIOXIDE LEVEL 27 MEQ/L (21-32); CHLORIDE LEVEL 104 MEQ/L (98-107); CREATININE FOR GFR 1.05 MG/DL (0.70-1.30); GLOMERULAR FILTRATION RATE > 60.0 (>42); GLUCOSE, FASTING 68 MG/DL (70-100); POTASSIUM SERUM 4.3 MEQ/L (3.5-5.1); SODIUM LEVEL 138 MEQ/L (136-145)
[2019-12-09] MEDS: SLF 3 ML SYR IV SCH ×3 (06:32→21:18)
[2019-12-09] MEDS ORDERED: GLUCOSE 4GM CHEW TABLET PO PRN (07:30)
[2019-12-09] MEDS ORDERED: DEXTROSE 50% 50 ML SYRINGE IV PRN (07:30)
[2019-12-09] MEDS: HumaLOG INSULIN (NovoLOG) PER UNIT SC SCH ×4 (07:30→21:00)
[2019-12-09] MEDS ORDERED: GLUCAGON INJ 1MG VIAL SC PRN (07:30)
[2019-12-09] MEDS: LEVEMIR (INSULIN DETEMIR) 1 UNITS/0.01ML SC SCH ×2 (07:39→21:17)
[2019-12-09] MEDS: TIOTROPIUM INHALER/CAPSULE (SPIRIVA) INH SCH (07:45)
[2019-12-09] MEDS: ALBUTEROL SULFATE 2.5 MG/0.5 ML INH NEB SOLN INH SCH ×3 (07:45→19:19)
[2019-12-09] MEDS ORDERED: fentaNYL 100 MCG/2 ML INJECTION (J3010) As Ordered ONE (07:53)
[2019-12-09] MEDS ORDERED: MIDAZOLAM INJ 2MG/2ML VIAL (J2250 PER 1MG) As Ordered ONE (07:53)
[2019-12-09 08:00] VITALS: BP 107/62
[2019-12-09] MEDS: ASPIRIN 81 MG CHEW TABLET GT SCH (08:41)
[2019-12-09] MEDS: predniSONE 20 MG TAB PO SCH (08:41)
[2019-12-09] MEDS: CLOPIDOGREL 75 MG TAB PO SCH (08:41)
[2019-12-09] MEDS: PANTOPRAZOLE 20 MG TAB PO SCH (08:42)
[2019-12-09] MEDS: POTASSIUM CHLORIDE 10 MEQ SR TABLET PO SCH ×2 (08:42→21:16)
[2019-12-09] MEDS: TORSEMIDE 20 MG TAB PO SCH ×2 (08:42→16:38)
[2019-12-09] MEDS: guaiFENesin ER 600 MG TAB PO SCH ×2 (08:43→12:07)
[2019-12-09] MEDS ORDERED: OXYMETAZOLINE NASAL SPRAY (AFRIN) As Ordered ONE (09:20)
[2019-12-09] MEDS ORDERED: SILVER NITRATE APPLICATOR As Ordered ONE ×2 (09:56→10:12)
[2019-12-09] MEDS ORDERED: BACITRACIN OINTMENT 30GM TUBE As Ordered ONE (10:24)
[2019-12-09 12:00] VITALS: BP 138/75
[2019-12-09] MEDS: BACTRIM 160MG/800MG DS TAB PO SCH (12:07)
[2019-12-09] MEDS: MIRALAX *UNIT DOSE* 17GM PACKET PO SCH (12:07)
[2019-12-09] MEDS: AUGMENTIN 875 MG TAB PO SCH ×2 (12:08→21:16)
[2019-12-09] MEDS ORDERED: LIDOCAINE W/EPINEPHRINE 1% 20ML VIAL ONE (13:32)
[2019-12-09] MEDS ORDERED: EPINEPHrine 1MG/ML INJ 30ML MD-VIAL ONE (13:32)
[2019-12-09] MEDS ORDERED: METHYLENE BLUE 0.5% (5MG/ML) 10 ML AMP (PROVAYBLUE)(Q9968 PER 1MG) ONE (13:32)
[2019-12-09] MEDS ORDERED: SODIUM CHLORIDE 0.9% NASAL GEL 15GM (AYR) ONE (13:32)
--- NOTE | 2019-12-09 14:28 | IPNPDOC ---
Text Note Date of Service The patient was seen on 12/09/19. NOTE Subjective: Very anxious this morning about the pack removal. Has not david sle eping much. Chest pain is better. His pack is in place. Appears dry at this time. Sitting up in chair. no Nausea or vomiting. regular bowel movements. Oxygen requirement slightly down. Going for pack removal today. Objective: Vitals: see below. General: Obese, awake , alert, cooperative and oriented. Eyes: Anicteric, non injected, PERRLA, EOMI ENT: right nare with rhinorocket with some blood clots, left nare clear. Neck: Thick, supple, no adenopathy, trachea midline , bruising on the right si de. Chest: Normal air movement, dry crackles at the bases, No ronchi or wheezing, On 8 L oxygen through tent/mejia. Heart: Rate Normal, regular Rhythm, Normal S1, Normal S2, no noted murmurs Abdomen: Obese, normal bowel sounds, soft,, NTND Extremity: bilateral edema present. 2+ DP pulses, no tenderness Skin: normal turgor and temperature no breakdown or lesion Neuro: No focal neurodeficits. 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 Hospital course has been complicated by cardiac arrest on 11/27/19. This happened in PACU within 30 mins following rhinorocket removal in OR during which he was given fentanyl 100 mcg and versed 2 mg for light sedation. Had PEA a cardiac arrest, ROSC was 10 mins. Developed cardiogenic shock, shock liver, ERIN , acute on chronic hypoxic respiratory failure. He remained intubated till 11/30/19. Then successfully extubated, came off pressors, ERIN and shock liver resolved. However he has been having recurrent epistaxis which started on 12/02/19 on the right and then on the left on 12/03/19. Recurrent right epistaxis again on 12/02/19 night and left on 12/03/19 Rhinorocket in right , left stopped spontaneously. Augmentin to prevent sinus itis Spoke with [facility] ENT Dr Watkins and he spoke with Dr Abraham. He recommended to keep the Rhinorocket in longer 5 to 7 days. As per Interventional radiology in [facility] to do BABITA embolization patient will need anaesthesia and intubation and he is very high cardiac risk for the procedure. Dr Watkins wanted us to try the rhinorocket longer before going for the complicated procedure of BABITA emboli zation. If he bleeds again after the removal of the rocket a second time then he will need to be transferred. planned for OR removal of rhinorocket today Dr Abraham requested cardiology assessment prior to going to OR. Spoke to Dr Brandt very high risk patient and he recommended transfer. However [facility] refused transfer at this time. Dr Marshall spoke with their ENT dr Gutierrez on 12/07/19 Hold ASA and continue only plavix. stop heparin. Frequent PVCS and NSVTs this is probably due to ischemic cardiomyopathy as it persisted even after correction of electrolyte abnormalities. 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 s/p extubation, currently on 10 l by tent. Now back on home prednisone of 20 mg daily. Back to bactrim for PCP now that renal function has improved. Continue Spiriva in place of Incruse. duoneb TID ERIN on his CKD: in the setting of his shock and cardiac arrest and acute CHF improved continue diuresis strict I/Os monitor electrolytes daily and replete aggressively Renally dose medications. Acute on Chronic HFpEF: with madie volume overload at this time and acute on chronic hypoxemia with severe pulmonary hypertension with cor pulmonale and HFpEF , s/p PEA arrest TTE showed elevated RVSP in the 80s with RV systolic dysfunction and continue oral diuretics continue his aspirin/ Plavix. Brief episode of Afib on 12/01/19 received digoxin. Leucocytosis on prednisone, on diuresis with rapidly audra volume status. procalcitonin not elevated No signs of infection. Hypokalemia continue replacement CAD s/p 4 stents < 1 year continue with his aspirin, Plavix Statin held in the setting of transaminitis Type 2 diabetes continue holding home oral meds sliding scale Lispro and levemir hypoglycemic protocol Acute Transaminitis and hyperbilirubinemia: improving Likely a combination of hepatic congestion as well as shock liver given his cardiac arrest and shock. continue to monitor, avoid hepatotoxic meds DVT ppx: SCDs and TEDs GI ppx: protonix PO Diet: consistent carb Code Status: DNR/DNI. New MOLST is completed and in chart. VS,Fishbone, I+O VS, Fishbone, I+O Laboratory Tests 12/09/19 05:40 Vital Signs Date Time Temp Pulse Resp B/P (MAP) Pulse Ox O2 Delivery O2 Flow Rate FiO2 12/09/19 07:39 8.0 35 12/09/19 03:43 97.0 63 20 107/76 (86) 95 Tent/Mejia I&O- Last 24 Hours up to 6 AM 12/09/19 05:59 Intake Total 840 ml Output Total 2100 ml Balance -1260 ml ABI LOVE MD December 09, 2019 07:56
[2019-12-09 16:00] VITALS: BP 116/74
[2019-12-09] MEDS: ACETAMINOPHEN 500 MG TAB PO PRN (18:44)
[2019-12-09 20:00] VITALS: BP 110/73
[2019-12-10] VITALS: BP 88/62
[2019-12-10 00:45] VITALS: BP 92/64
[2019-12-10 04:00] VITALS: BP 100/70
[2019-12-10 05:52] LABS: BASO % 0.2 % (0.0-1.0); EOS # 0.5 10^3/uL (0.0-0.5); EOS % 3.3 % (0.0-3.0); HEMATOCRIT 44.4 % (42.0-52.0); HEMOGLOBIN 13.8 g/dl (13.5-17.5); LYMPH # 3.5 10^3/uL (1.5-5.0); LYMPH % 23.6 % (24.0-44.0); MEAN CORPUSCULAR HEMOGLOBIN 28.8 pg (27.0-33.0); MEAN CORPUSCULAR HGB CONC 31.1 g/dl (32.0-36.5); MEAN CORPUSCULAR VOLUME 92.7 fl (80.0-96.0); MONO # 1.3 10^3/uL (0.0-0.8); MONO % 8.9 % (0.0-5.0); NEUTROPHILS # 9.3 10^3/uL (1.5-8.5); NEUTROPHILS % 63.5 % (36.0-66.0); PLATELET COUNT, AUTOMATED 315 10^3/uL (150-450); RED BLOOD COUNT 4.79 10^6/uL (4.30-6.10); WHITE BLOOD COUNT 14.6 10^3/uL (4.0-10.0)
[2019-12-10] MEDS: SLF 3 ML SYR IV SCH ×3 (06:01→21:04)
[2019-12-10 06:14] LABS: BLOOD UREA NITROGEN 16 MG/DL (7-18); CARBON DIOXIDE LEVEL 29 MEQ/L (21-32); CHLORIDE LEVEL 104 MEQ/L (98-107); CREATININE FOR GFR 1.07 MG/DL (0.70-1.30); GLOMERULAR FILTRATION RATE > 60.0 (>42); GLUCOSE, FASTING 54 MG/DL (70-100); SODIUM LEVEL 140 MEQ/L (136-145)
[2019-12-10] MEDS: ACETAMINOPHEN 500 MG TAB PO PRN ×2 (06:49→21:46)
[2019-12-10] MEDS: HumaLOG INSULIN (NovoLOG) PER UNIT SC SCH ×4 (07:30→20:52)
[2019-12-10] MEDS: ALBUTEROL SULFATE 2.5 MG/0.5 ML INH NEB SOLN INH SCH ×3 (07:40→19:09)
[2019-12-10] MEDS: TIOTROPIUM INHALER/CAPSULE (SPIRIVA) INH SCH (07:40)
[2019-12-10 08:00] VITALS: BP 115/73
[2019-12-10] MEDS: guaiFENesin ER 600 MG TAB PO SCH ×2 (09:00→21:04)
[2019-12-10] MEDS: LEVEMIR (INSULIN DETEMIR) 1 UNITS/0.01ML SC SCH ×2 (09:00→21:04)
[2019-12-10] MEDS: MIRALAX *UNIT DOSE* 17GM PACKET PO SCH (09:00)
[2019-12-10] MEDS: PANTOPRAZOLE 20 MG TAB PO SCH (09:54)
[2019-12-10] MEDS: CLOPIDOGREL 75 MG TAB PO SCH (09:54)
[2019-12-10] MEDS: POTASSIUM CHLORIDE 10 MEQ SR TABLET PO SCH ×2 (09:54→21:03)
[2019-12-10] MEDS: TORSEMIDE 20 MG TAB PO SCH ×2 (09:55→17:55)
[2019-12-10] MEDS: AUGMENTIN 875 MG TAB PO SCH ×2 (09:55→21:04)
[2019-12-10] MEDS: predniSONE 20 MG TAB PO SCH (09:55)
--- NOTE | 2019-12-10 12:02 | RO ---
DATE OF OPERATION: 12/09/2019 PREOPERATIVE DIAGNOSIS: Recurrent right epistaxis. POSTOPERATIVE DIAGNOSIS: Recurrent right epistaxis. PROCEDURE: 1. Removal of the nasal packing from the nasal cavity. 2. Nasal endoscopy. 3. Endoscopic nasal debridement of the right nasal cavity. 4. Control of right epistaxis via silver nitrate and dissolvable packing. SURGEON: Seymour Abraham MD MORTGAGE LENDER: ANESTHESIA: None. CLINICAL PREAMBLE. This 69-year-old man presented to the hospital initially with placement of the right Rhino Rocket to achieve hemostasis. The nasal packing was subsequently removed approximately 5 days after the initial packing. The patient however developed cardiac arrest in the recovery area. He was successfully resuscitated. However, the patient needed to be on the Plavix due to his cardiac stent placed approximately 4 months ago. The patient subsequently developed another bout of right epistaxis a week ago requiring placement of another right Rhino Rocket. At this time, the patient has been on the second Rhino Rocket for a total of 7 days. As such, the procedures listed above have been discussed in great detail with the patient. He understood the risks including stroke, cardiac arrest and , recurrent bleeding and need for more procedures. He recognized the risks and wished to proceed with the procedures listed above. DESCRIPTION OF PROCEDURE: OR Narration: The patient was identified in the preoperative holding and brought to the operating room in stable condition. In supine position on the operating room table, the patient received supplemental oxygen via the face mask. The right Rhino Rocket was then carefully moistened with normal saline solution. The balloon was deflated and the packing was successfully removed. No significant bleeding was noted. Using a 30 degree nasal endoscope, the right nasal cavity was inspected. Diffuse maceration of the nasal mucosa was noted. The nasoseptal perforation was also noted, which show no evidence of active bleeding. Debridement of the right nasal cavity was then carried out. Upon removal of the crusted nasal secretions and old clots, some oozing was noted on the middle nasal turbinates as well as the posterior edge of the nasal septal perforation. The areas were then cauterized using silver nitrate. The right sphenopalatine area was clear. Using a Gelfoam wrap in the Surgicel and coated with bacitracin, the right nasal cavity was the packed with the self dissolving packing. At the end of the procedure, sponge and instrument counts were correct. No complication was encountered. Estimated blood loss was less than 1 mL. The patient tolerated the procedure well. There was no need for giving any anesthetic throughout the procedure. The patient was transferred to the recovery area in stable condition. The patient was awake and conversant throughout the entire case. JEROME
[2019-12-10 16:00] VITALS: BP 138/80
[2019-12-10 20:00] VITALS: BP 109/63
[2019-12-11] VITALS: BP 102/59
[2019-12-11 04:00] VITALS: BP 104/63
[2019-12-11] MEDS: SLF 3 ML SYR IV SCH (06:00)
[2019-12-11 06:04] LABS: BASO # 0.1 10^3/uL (0.0-0.2); BASO % 0.4 % (0.0-1.0); EOS # 0.5 10^3/uL (0.0-0.5); HEMATOCRIT 42.8 % (42.0-52.0); HEMOGLOBIN 13.7 g/dl (13.5-17.5); LYMPH # 3.6 10^3/uL (1.5-5.0); LYMPH % 24.3 % (24.0-44.0); MEAN CORPUSCULAR HEMOGLOBIN 29.2 pg (27.0-33.0); MEAN CORPUSCULAR VOLUME 91.3 fl (80.0-96.0); MONO # 1.4 10^3/uL (0.0-0.8); MONO % 9.4 % (0.0-5.0); NEUTROPHILS # 9.3 10^3/uL (1.5-8.5); NEUTROPHILS % 62.4 % (36.0-66.0); PLATELET COUNT, AUTOMATED 329 10^3/uL (150-450); RED BLOOD COUNT 4.69 10^6/uL (4.30-6.10); WHITE BLOOD COUNT 14.9 10^3/uL (4.0-10.0)
[2019-12-11 06:07] LABS: BLOOD UREA NITROGEN 14 MG/DL (7-18); CALCIUM LEVEL 7.9 MG/DL (8.8-10.2); CARBON DIOXIDE LEVEL 29 MEQ/L (21-32); CHLORIDE LEVEL 105 MEQ/L (98-107); CREATININE FOR GFR 1.01 MG/DL (0.70-1.30); GLOMERULAR FILTRATION RATE > 60.0 (>42); GLUCOSE, FASTING 86 MG/DL (70-100); POTASSIUM SERUM 3.8 MEQ/L (3.5-5.1); SODIUM LEVEL 140 MEQ/L (136-145)
[2019-12-11] MEDS: ALBUTEROL SULFATE 2.5 MG/0.5 ML INH NEB SOLN INH SCH (07:03)
[2019-12-11] MEDS: TIOTROPIUM INHALER/CAPSULE (SPIRIVA) INH SCH (07:03)
[2019-12-11] MEDS: HumaLOG INSULIN (NovoLOG) PER UNIT SC SCH ×2 (07:30→13:27)
[2019-12-11 07:42] VITALS: BP 120/84
[2019-12-11] MEDS: LEVEMIR (INSULIN DETEMIR) 1 UNITS/0.01ML SC SCH (08:02)
[2019-12-11] MEDS ORDERED: AMOX875T2 PO (08:10)
[2019-12-11] MEDS ORDERED: PRED20TA PO (08:12)
[2019-12-11] MEDS: predniSONE 20 MG TAB PO SCH (08:38)
[2019-12-11] MEDS: guaiFENesin ER 600 MG TAB PO SCH (08:38)
[2019-12-11] MEDS: CLOPIDOGREL 75 MG TAB PO SCH (08:38)
[2019-12-11] MEDS: PANTOPRAZOLE 20 MG TAB PO SCH (08:39)
[2019-12-11] MEDS: BACTRIM 160MG/800MG DS TAB PO SCH (08:39)
[2019-12-11] MEDS: AUGMENTIN 875 MG TAB PO SCH (08:39)
[2019-12-11] MEDS: POTASSIUM CHLORIDE 10 MEQ SR TABLET PO SCH (08:39)
[2019-12-11] MEDS: MIRALAX *UNIT DOSE* 17GM PACKET PO SCH (08:39)
[2019-12-11] MEDS: TORSEMIDE 20 MG TAB PO SCH (08:39)
[2019-12-11] MEDS: ACETAMINOPHEN 500 MG TAB PO PRN (10:26)
--- NOTE | 2019-12-11 12:50 | IPN ---
DATE OF SERVICE: 12/10/2019 The patient complains of weakness. Not able to ambulate back to baseline as yet. The patient was seen by occupational therapy on 12/09/2019. To have repeat followup today. The patient is breathing well with a tent dudley 92% to 93%, 8 liters. No chest pain, pressure, or tightness. No shortness of breath. Requesting for the left naris to be clean. Temperature 96.6, pulse 72, respiratory rate 16, blood pressure 100/70, 92%, 8 liters 10 to 35% FIO2. Generally, the patient is awake, alert, oriented to person, place, and time. Answering questions appropriately. No respiratory distress. The patient has right naris with some blood clots. Left naris is clear. Neck is supple for range of motion. Some ecchymosis noted on the right side. Chest clear but some crackles at the base. No rhonchi. Currently with a tent dudley Heart: S1, S2, sinus rhythm. Abdomen is obese, soft, nontender, nondistended. Extremities: Chronic edema 2+. LABORATORY DATA: White count 14.6, hemoglobin 13, hematocrit 44, platelet count 315. Sodium 140, potassium 4, chloride 104, bicarbonate 29, BUN 16, creatinine 1.07, glucose of 54. MICROBIOLOGY: Blood culture negative. Chest x-ray 12/02/2019: Stable chronic changes. No acute focal consolidation or effusion. ASSESSMENT AND PLAN: A 69-year-old, history of bird fancier's lung, pulmonary fibrosis on chronic 4 liters oxygen, severe pulmonary hypertension, congestive heart failure (CHF), hyperlipidemia, coronary artery disease (CAD) with four stents, drug-eluting stent, on aspirin and Plavix 5 months ago, diabetes, who presented with right intractable epistaxis with Rhino Rocket placement 11/22/2019, complicated by cardiac arrest on 11/27/2019 in postanesthesia care unit (PACU) 30 minutes after Rhino Rocket was removed in the operating room (OR), status post PEA and cardiac arrest with resume of spontaneous circulation within 10 minutes, cardiogenic shock, shock liver, acute kidney injury, acute on chronic hypoxic respiratory failure, intubated until 11/30/2019. The patient was able to come off vasopressors. Acute kidney injury and shock liver have resolved. He continues to have recurrent epistaxis on 12/02/2019 on the right and on the left on 12/03/2019. CURRENT ISSUES: 1. Recurrent epistaxis 12/02/2019 and 12/03/2019. The patient has the Rhino Rocket on the right, left stopped spontaneously. On chronic augmentin to prevent sinusitis, to complete a full 10-day course per ears, nose, and throat (ENT) surgeon, Dr. Abraham. The patient is to keep the Rhino Rocket for 5-[address] Mayer had spoken with [facility] to do interventional radiology, BABITA embolization but will need anesthesia and intubation. The patient is very high cardiac risk for the procedure. After the Rhino Rocket is removed in 7 days, the patient may need transfer to [facility]. Per Dr. Mayer's conversation with blocker and polisher, Dr. Brandt, the patient is very high cardiac risk for any procedure in light of the recent PEA and cardiac arrest on 11/27/2019 and recommended transfer to [facility]. 2. History of ischemic cardiomyopathy with recent premature ventricular contractions (PVCs) and nonsustained ventricular tachycardia (V-TACH), status post PE and cardiac arrest on 11/27/2019. The patient's electrolytes are to be monitored and repleted. 3. Acute on chronic hypoxic respiratory failure in the setting of bird fancier's disease with interstitial lung disease, pulmonary fibrosis, COPD from smoking, and chronic hypoxemic respiratory failure on 4 liters of oxygen. The patient was placed back on his home dose of Bactrim for prophylaxis for PJP, on chronic prednisone 20 daily, Spiriva, and DuoNebs three times a day. Pulmonary is following. 4. Cardiogenic shock with congestive heart failure exacerbation, resolved. 5. Shock liver, resolved. 6. History of pulmonary embolism and cardiac arrest. Currently has no neurocognitive deficits. 7. Acute kidney injury on chronic kidney disease stage III in the setting of cardiogenic shock arrest and acute congestive heart failure, all resolved back to baseline. 8. Acute on chronic heart failure, diastolic dysfunction, preserved ejection fraction, status post PEA arrest. Thoracic echocardiogram shows severe pulmonary hypertension with PA pressure of 80 mmHg. He has been resumed on his home dose of diuretic, aspirin, and Plavix. 9. History of coronary artery disease, ischemic cardiomyopathy, with drug-eluting stent for 5 months. Still on aspirin and Plavix. 10. Transient atrial fibrillation, status post digoxin on 12/01/2019. 11. Electrolyte abnormalities with hypokalemia, repleted. 12. Type 2 diabetes. Holding oral medications. Currently on Levemir and lispro before meals and nightly. 13. Shock liver with transaminitis and hyperbilirubinemia. Avoiding hepatotoxics. Back to baseline. 14. Gastrointestinal (GI) prophylaxis with Protonix. 15. Diet is consistent-carbohydrate, 6-gdvr-echory. CODE STATUS: DO NOT RESUSCITATE (DNR), DO NOT INTUBATE (DNI). DISPOSITION: Await physical therapy (PT) clearance. MTDD
--- NOTE | 2019-12-14 16:43 | DSES ---
DATE OF ADMISSION: 11/26/2019 DATE OF DISCHARGE: 12/11/2019 CONSULTANTS DURING THIS ADMISSION: 1. Ear, nose and throat surgeon, Dr. Seymour Abraham. 2. Pre Algebra Teacher, Dr. Betsy Winters and Dr. Pito Parker. PROCEDURES DURING THIS ADMISSION: 1. 11/27/2019 central line insertion for vasopressor therapy status post cardiogenic shock. 2. 11/26/2019 removal of right Rhino Rocket, nasal endoscopy, endoscopic debridement of right nasal cavity by Dr. Seymour Abraham. PRIMARY DISCHARGE DIAGNOSES: 1. Recurrent right epistaxis on 11/26/2019 and again 12/02/2019, status post right Rhino Rocket, complicated by pulseless electrical activity and cardiac arrest. 2. Cardiogenic shock. 3. Shock liver. 4. Acute kidney injury on chronic kidney disease, stage III. 5. Acute on chronic hypoxemic respiratory failure in the background of chronic hypersensitivity pneumonitis. 6. Congestive heart failure exacerbation with preserved ejection fraction. 7. Cor pulmonale. 8. Pulmonary fibrosis. 9. Chronic obstructive pulmonary disease (COPD) with chronic hypoxic respiratory failure, on four liters of oxygen at rest. 10. Brief episode of atrial fibrillation on 12/01/2019. 11. Hypokalemia. 12. Type 2 diabetes. 13. Acute transaminitis and hyperbilirubinemia due to shock liver. 14. Cardiac arrest and hepatic congestion from congestive heart failure. 15. Frequent premature ventricular contractions (PVCs) and nonsustained ventricular tachycardia. DISCHARGE INSTRUCTIONS: The patient is to keep the Rhino Rocket in the right nares for an additional 5-7 days per ear, nose and throat (ENT) surgeon, Dr. Seymour Abraham. He is to avoid Flonase and to followup in the office within one week of discharge. He is to hold aspirin and only continue on Plavix and to continue on Augmentin to prevent sinusitis. The patient is to be seen by his hand model due to recent cardiac arrest and cardiogenic shock with frequent premature ventricular contractions (PVCs) and nonsustained ventricular tachycardia despite correction of electrolyte abnormalities to further evaluate for ischemic cardiomyopathy. 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 The patient had been able to stop the epistaxis at home but then proceeded to the right nares. In the emergency room (ER), Dr. Gomez was able to pack the right nostril and he was hemodynamically stable. He was in severe pain and hypoxemic, placed on nonrebreather which was subsequently de-escalated to Venturi mask after hemostasis was achieved. The patient has had no prior epistaxis in the past and had been taking his aspirin and Plavix. Aspirin had then been discontinued and he was continued on Plavix due to his drug-eluting stent. He remained hemodynamically stable on admission with acute on chronic hypoxemia due to right nasal packing. White count was 16,000, platelets were 195, and hemoglobin was 15. Creatinine was 1.7, international normalized ratio (INR) was 1.19. Ear, nose and throat (ENT) was consulted who recommended continued hemostasis and admission for observation. On 11/26/2019, ENT was consulted due to persistent right epistaxis. Over the weekend on Monday, the Rhino Rocket was removed by the hospitalist service and the patient developed recurrence of epistaxis. A new Rhino Rocket was placed on the right on 11/24/2019 and the patient was doing well without any repeat episodes. According to the patient's hand model, due to the drug-eluting stent, Plavix cannot be withheld. Therefore, a nasal Rhino Rocket had to be in place for a 5-7 day extension due to high risk of potential recurrence with recommendation for invasive cauterization if it is intractable. The patient went to the operating room (OR) for removal of the packing in the right nares, subsequently complicated by cardiopulmonary arrest with pulseless electrical activity with return of spontaneous circulation for approximately 10 minutes. He was intubated on 11/28/2019. It Compliance Manager, Dr. Pito Parker was consulted for ventilatory management. Endotracheal (ET) tube was placed. Blood pressure was well-maintained at 111/78 and the patient had initially been on vasopressors which were subsequently weaned off. The patient was kept on antibiotics and stress dose steroids were given for hyperaldosteronism related to chronic steroid use. The patient was kept on intravenous fluids, IV Protonix for stress prophylaxis. Since the Rhino Rocket was removed, ENT noted that he could not visualize the source of bleeding and further visualization is not going to be helpful. [facility] ENT, Dr. Watkins, was consulted and spoke with ENT surgeon, Dr. Seymour Abraham, with recommendations to keep the Rhino Rocket in longer for 5-7 days. Per [facility] interventional radiology who was consulted to possibly do an inferior mesenteric artery (BABITA) embolization, the patient would need anesthesia and intubation but the patient is very high cardiac risk for the procedure in light of the recent pulseless electrical activity (PEA) and cardiac arrest. Therefore, [facility] did not accept the patient. The patient was subsequently extubate and shock liver and acute kidney injury improved. He was initially on 10 liters oxygen via tent dudley. He was resumed back on his home dose of prednisone. He was placed back on his home Spiriva and DuoNebs three times a day. The patient's acute kidney injury reverted back to chronic kidney disease, stage III at baseline. Electrolytes were repleted. The patient passed a home safety evaluation and subsequently discharged home with outpatient followup with Dr. Abraham. PHYSICAL EXAMINATION ON DISCHARGE: Temperature 97.1, pulse 64, respiratory rate 20, blood pressure 120/84, 90% on 35% fraction of inspired oxygen (FiO2) 8 liters flow rate via tent/dudley. Generally, the patient is awake, alert, oriented, conversing appropriately. Anicteric sclerae. No jaundice. Pupils are round and reactive. Extraocular muscles are intact. Right nares with Rhino Rocket. Left nares with some blood clots. The patient has ecchymosis on the right neck. Lungs: Faint wheezing. Air entry is equal. Heart: S1, S2, regular rate and rhythm. Abdomen is obese, soft, nontender, nondistended. Positive bowel sounds times four quadrants. Extremities: Trace edema bilaterally. LABORATORY DATA ON DISCHARGE: White count 4.9, hemoglobin 13, hematocrit 42, platelet count 329. Sodium 140, potassium 3.8, chloride 105, bicarbonate 29, BUN 14, creatinine 1.01, glucose of 86. Blood culture 11/27/2019 negative. IMAGING STUDIES: Chest x-ray 11/27/2019: No new area of consolidation, mild cardiomegaly, diffuse interstitial fibrosis and band-like parenchymal densities seen in the right upper lobe, endotracheal tube in place. 12/02/2019 chest x-ray: Stable chronic changes. No obvious acute focal consolidation or effusion. DISCHARGE MEDICATIONS: No aspirin. No Flonase. NEW PRESCRIPTIONS: - Augmentin 875 twice a day for seven days - prednisone 20 mg home dose - albuterol two puffs inhaled every four hours as needed three times a day - atorvastatin 40 at bedtime - benzonatate 800 twice a day - vitamin D 1000 units daily - Plavix 75 daily - Colace 100 twice a day as needed - famotidine 40 daily - montelukast 10 at bedtime - Janumet one tablet twice a day - Bactrim prophylaxis three times weekly - torsemide 40 every morning and 20 every evening - Incruse Ellipta one puff inhaled daily DISCHARGE INSTRUCTIONS: The patient is to keep the Rhino Rocket for an additional 5-7 days, to complete seven more days of Augmentin, followup with ear, nose and throat (ENT) within five days of hospital discharge. The patient is not to have any Flonase. He may humidify his oxygen at home. The patient is not to remove the Rhino Rocket or touch bilateral nares at all at home due to increased risk of bleeding. He is to be off the aspirin but may continue the Plavix due to drug-eluting stent. Status post pulseless electrical activity (PEA), cardiac arrest. Cardiology followup within seven days to determine timing of coronary angiogram in light of recent cardiac arrest. Followup with medical reimbursement specialist within a week of hospital discharge. JEROME
== END 2019-12-11 14:32 | disposition home health service (06) | DRG 150 ==
LOC: M ED 06:30 → M ED INP 06:31 → ENRESERV 10:42 → ENRESERVDT 10:46 → ENRESERVTM 10:46 → M PCU 11:15 → OBSVTOIN 11-26 11:22 → M MS5PR 11-26 22:57 → M RR INP 11-27 19:54 → M ICU 11-29 16:59 → M PCU 12-02 18:16
PROVIDERS: ADMIT Internal Medicine; ATTEND Internal Medicine Nephrology
PROC: 2Y41X5Z Packing of Nasal Region using Packing Material (ICD-10-PCS; principal; 2019-11-26)
PROC: 0BH17EZ Insertion of Endotracheal Airway into Trachea, Via Natural or Artificial Opening (ICD-10-PCS; 2019-11-26)
PROC: 2Y51X5Z Removal of Nasal Packing Material (ICD-10-PCS; 2019-11-26)
PROC: 09CK8ZZ Extirpation of Matter from Nasal Mucosa and Soft Tissue, Via Natural or Artificial Opening Endoscopic (ICD-10-PCS; 2019-11-26)
PROC: 5A1945Z Respiratory Ventilation, 24-96 Consecutive Hours (ICD-10-PCS; 2019-11-26)
PROC: 06HM33Z Insertion of Infusion Device into Right Femoral Vein, Percutaneous Approach (ICD-10-PCS; 2019-11-27)
PROC: 2Y51X5Z Removal of Nasal Packing Material (ICD-10-PCS; 2019-12-09)
PROC: 09CK8ZZ Extirpation of Matter from Nasal Mucosa and Soft Tissue, Via Natural or Artificial Opening Endoscopic (ICD-10-PCS; 2019-12-09)
PROC: 093K8ZZ Control Bleeding in Nasal Mucosa and Soft Tissue, Via Natural or Artificial Opening Endoscopic (ICD-10-PCS; 2019-12-09)
PROC: 2Y41X5Z Packing of Nasal Region using Packing Material (ICD-10-PCS; 2019-12-09)
DX: R04.0 Epistaxis (principal); R65.21 Severe sepsis with septic shock; I46.9 Cardiac arrest, cause unspecified; A41.9 Sepsis, unspecified organism; K72.00 Acute and subacute hepatic failure without coma; I50.33 Acute on chronic diastolic (congestive) heart failure; J96.21 Acute and chronic respiratory failure with hypoxia; R57.0 Cardiogenic shock; N17.9 Acute kidney failure, unspecified; I13.0 Hypertensive heart and chronic kidney disease with heart failure and stage 1 through stage 4 chronic kidney disease, or unspecified chronic kidney disease; E27.40 Unspecified adrenocortical insufficiency; Z66 Do not resuscitate; J44.9 Chronic obstructive pulmonary disease, unspecified; J84.10 Pulmonary fibrosis, unspecified; I27.29 Other secondary pulmonary hypertension; E78.5 Hyperlipidemia, unspecified; I50.813 Acute on chronic right heart failure; E11.22 Type 2 diabetes mellitus with diabetic chronic kidney disease; I25.5 Ischemic cardiomyopathy; J67.2 Bird fancier's lung; I25.111 Atherosclerotic heart disease of native coronary artery with angina pectoris with documented spasm; I48.91 Unspecified atrial fibrillation; I49.3 Ventricular premature depolarization; R74.0 Nonspecific elevation of levels of transaminase and lactic acid dehydrogenase [LDH]; D69.6 Thrombocytopenia, unspecified; N18.3 Chronic kidney disease, stage 3 (moderate); E87.5 Hyperkalemia; Z87.891 Personal history of nicotine dependence; Z99.81 Dependence on supplemental oxygen; Z95.5 Presence of coronary angioplasty implant and graft; Z79.02 Long term (current) use of antithrombotics/antiplatelets; Z79.82 Long term (current) use of aspirin; Z79.899 Other long term (current) drug therapy; Z88.8 Allergy status to other drugs, medicaments and biological substances; Z91.013 Allergy to seafood; Z79.84 Long term (current) use of oral hypoglycemic drugs

== ENCOUNTER 2019-12-23 03:15 | Emergency (ER) | payer MEDICARE, MEDICAID ==
[~2019-12-23] VITALS: Ht 170.2 cm; Wt 98.6 kg
[~2019-12-23 03:15] MED LIST changes: +ALB2.5NEB INH; +AMOX875T2 PO; +COLA100C5 PO; +FAMO40TA3 PO
[2019-12-23 03:24] VITALS: BP 111/73
[2019-12-23] MEDS ORDERED: METAL LOCK LOOP XX ONE (04:25)
[2019-12-23] MEDS ORDERED: NEUR100C PO (05:15)
--- NOTE | 2019-12-23 05:15 | REPVR ---
PROCEDURE INFORMATION: Exam: US Duplex Right Lower Extremity Veins, Limited Exam date and time: 12/23/2019 5:06 AM Age: 69 years old Clinical indication: Pain; Leg, upper; Right; Additional info: Acute onset of pain in upper thigh TECHNIQUE: Imaging protocol: Real-time Duplex ultrasound of the Right Lower Extremity with 2-D rose scale, color Doppler flow and spectral waveform analysis with image documentation. Limited exam was focused on the right lower extremity veins. COMPARISON: No relevant prior studies available. FINDINGS: Right deep veins: Unremarkable. The common femoral, femoral, proximal profunda femoral and popliteal veins are patent without thrombus. Normal Doppler waveforms. Normal compressibility and/or augmentation response. Incidentally noted is a normal variant duplicated right mid femoral vein. Right superficial veins: Unremarkable. Saphenofemoral junction is patent without thrombus. Soft tissues: Unremarkable. IMPRESSION: No evidence of deep vein thrombosis. Electronically signed by: Dylon Michaud On 12/23/2019 05:14:43 AM
[2019-12-23] MEDS ORDERED: GABAPENTIN 100 MG CAP PO ONE (05:30)
== END 2019-12-23 07:19 | disposition home or self-care (01) ==
LOC: M ED 03:15
DX: M79.604 Pain in right leg (principal); I25.10 Atherosclerotic heart disease of native coronary artery without angina pectoris; I50.9 Heart failure, unspecified; J44.9 Chronic obstructive pulmonary disease, unspecified; E11.9 Type 2 diabetes mellitus without complications; Z79.01 Long term (current) use of anticoagulants; Z91.013 Allergy to seafood; Z88.8 Allergy status to other drugs, medicaments and biological substances